=== PATIENT | male | born 1945 | race Caucasian/White ===

== ENCOUNTER → 2016-08-12 | Outpatient (REF) | payer OTHER ==
[~2016-08-12] MED LIST: ACET65TA; CODE15TA2 PO; DARV100T; DIGO0.25 PO; ECOT325T5; FLUC10TA; GERITAB9 PO; IBUP-1114 PO; IBUP200C PO; LEVA500T; METO-346 PO; METO25TAB PO; NICO14DI3; OMEP40CA2 PO; SYMB80INH INH; ZOCO20TA PO
== END ==
LOC: M LAB REF 12:11
PROVIDERS: ATTEND Physician Assistant Medical
DX: R31.9 Hematuria, unspecified (principal)

== ENCOUNTER 2016-09-07 15:26 | Emergency (ER) | payer OTHER ==
[~2016-09-07] VITALS: Ht 177.8 cm; Wt 86.6 kg
[2016-09-07] MEDS ORDERED: DOXY100T16 PO (15:48)
[2016-09-07] MEDS ORDERED: XARE20TA PO (15:48)
[2016-09-07] MEDS ORDERED: methylPREDNISolone INJ 125 MG/2 ML VIAL (J2930) IV ONE (17:15)
[2016-09-07 17:18] LABS: BASO % 0.7 % (0.0-1.0); EOS # 0.1 K/mm3 (0.0-0.50); EOS % 2.4 % (0.0-3.0); LARGE UNSTAINED CELL # 0.2 K/mm3 (0.0-0.4); LYMPH # 0.9 K/mm3 (1.5-4.5); LYMPH % 18.3 % (24.0-44.0); MEAN CORPUSCULAR HEMOGLOBIN 32.7 pg (27.0-33.0); MEAN CORPUSCULAR HGB CONC 35.3 g/dl (32.0-36.5); MEAN CORPUSCULAR VOLUME 92.4 fl (80.0-96.0); MONO # 0.4 K/mm3 (0.0-0.8); MONO % 8.8 % (0.0-5.0); NEUTROPHILS # 3.3 K/mm3 (1.8-7.7); NEUTROPHILS % 66.9 % (36.0-66.0); PLATELET COUNT, AUTOMATED 183 k/mm3 (150-450); RED CELL DISTRIBUTION WIDTH 11.6 % (11.5-14.5); WHITE BLOOD COUNT 4.9 K/mm3 (4.0-10.0)
[2016-09-07 17:20] LABS: INR 1.27
[2016-09-07 17:26] LABS: ANION GAP 10 MEQ/L (8-16); BLOOD UREA NITROGEN 17 MG/DL (7-18); CALCIUM LEVEL 8.8 MG/DL (8.8-10.2); CARBON DIOXIDE LEVEL 26 MEQ/L (21-32); CHLORIDE LEVEL 103 MEQ/L (98-107); CREATININE FOR GFR 0.95 MG/DL (0.70-1.30); GLOMERULAR FILTRATION RATE > 60.0 (>49); GLUCOSE, FASTING 113 MG/DL (80-110); POTASSIUM SERUM 4.3 MEQ/L (3.5-5.1); SODIUM LEVEL 139 MEQ/L (136-145)
[2016-09-07 17:36] LABS: DIGOXIN LEVEL 0.8 NG/ML (0.5-2.0)
[2016-09-07] MEDS: IPRATROPIUM 0.5MG/ALBUTEROL 2.5MG INH SOL UD 3ML (DUONEB)(J7620) NEB PRN ×3 (17:53→18:20)
[2016-09-07 17:58] VITALS: BP 107/58
[2016-09-07] MEDS ORDERED: ALBUTEROL SULFATE 2.5 MG/0.5 ML INH NEB SOLN NEB ONE (19:00)
--- NOTE | 2016-09-07 19:31 | REP ---
CHEST, TWO VIEWS: HISTORY: Cough. COMPARISON: 03/31/2016 A diffuse increase in interstitial markings is present in the lung consistent with chronic interstitial fibrosis. The heart is normal in size. The pulmonary vasculature is normal in appearance. The bony structure is intact. A cardiac pace maker is present. IMPRESSION: Chronic interstitial fibrosis. Signed by Obi Gaston MD 09/07/2016 07:32 P
[2016-09-07] MEDS ORDERED: AVEL1TAB PO (19:59)
[2016-09-07] MEDS ORDERED: PRED20TA PO (19:59)
[2016-09-07] MEDS ORDERED: PROA1AER INH (19:59)
[2016-09-07] MEDS ORDERED: MOXIFLOXACIN 400 MG TAB PO ONE (20:00)
--- NOTE | 2016-09-10 08:32 | ECGEPIP ---
Stationary ECG Study [facility] - ED Test Date: 2016-09-07 Pat Name: LEO COOK Department: Room: - Gender: M Design Specialist: brenton : 1945 Requested By: AARON ROMAN Order Number: [id number] Reading MD: Kylie Jean Measurements Intervals [place] Rate: 60 P: 123 GA: 249 QRS: -7 QRSD: 136 T: -24 QT: 386 QTc: 386 Interpretive Statements ELECTRONIC ATRIAL PACEMAKER INTRAVENTRICULAR CONDUCTION DELAY LEFT VENTRICULAR HYPERTROPHY AND ST-T CHANGE POSSIBLE LATERAL MYOCARDIAL INFARCTION, OF INDETERMINATE AGE Electronically Signed On 09-10-2016 8:31:54 EST by Kylie Jean
== END 2016-09-07 20:13 | disposition home or self-care (01) ==
LOC: M ED 16:53
DX: J44.0 Chronic obstructive pulmonary disease with (acute) lower respiratory infection (principal); I10 Essential (primary) hypertension; Z87.891 Personal history of nicotine dependence; Z91.041 Radiographic dye allergy status; Z79.899 Other long term (current) drug therapy; Z79.51 Long term (current) use of inhaled steroids; Z79.01 Long term (current) use of anticoagulants; E78.00 Pure hypercholesterolemia, unspecified; Z95.0 Presence of cardiac pacemaker; I48.91 Unspecified atrial fibrillation; Z85.118 Personal history of other malignant neoplasm of bronchus and lung; M19.90 Unspecified osteoarthritis, unspecified site
CPT/HCPCS: 71020; 80048; 80162; 82550; 82553; 83880; 84484; 85025; 85610; 93005; 93041; 94640; 94760; 96374; 99285; J2930

== ENCOUNTER → 2016-10-04 | Outpatient (REF) | payer OTHER ==
[~2016-10-04] MED LIST changes: +AVEL1TAB PO; +DOXY100T16 PO; +PRED20TA PO; +PROA1AER INH; +XARE20TA PO
[2016-10-04 12:56] LABS: BASO % 1.1 % (0.0-1.0); EOS # 0.2 K/mm3 (0.0-0.50); EOS % 3.8 % (0.0-3.0); LARGE UNSTAINED CELL # 0.1 K/mm3 (0.0-0.4); LARGE UNSTAINED CELL % 2.4 % (0.0-4.0); LYMPH # 1.2 K/mm3 (1.5-4.5); LYMPH % 20.7 % (24.0-44.0); MEAN CORPUSCULAR HEMOGLOBIN 32.5 pg (27.0-33.0); MEAN CORPUSCULAR HGB CONC 34.3 g/dl (32.0-36.5); MEAN CORPUSCULAR VOLUME 94.9 fl (80.0-96.0); MONO # 0.4 K/mm3 (0.0-0.8); MONO % 7.9 % (0.0-5.0); NEUTROPHILS # 3.2 K/mm3 (1.8-7.7); NEUTROPHILS % 64.1 % (36.0-66.0); PLATELET COUNT, AUTOMATED 181 k/mm3 (150-450); RED CELL DISTRIBUTION WIDTH 12.5 % (11.5-14.5)
[2016-10-04 13:14] LABS: ALBUMIN 3.3 GM/DL (3.2-5.2); ALKALINE PHOSPHATASE 86 U/L (45-117); ALT/SGPT 20 U/L (12-78); ANION GAP 9 MEQ/L (8-16); AST/SGOT 21 U/L (15-37); BLOOD UREA NITROGEN 14 MG/DL (7-18); CARBON DIOXIDE LEVEL 28 MEQ/L (21-32); CHLORIDE LEVEL 103 MEQ/L (98-107); CHOLESTEROL LEVEL 148 MG/DL (<200); CREATININE FOR GFR 1.06 MG/DL (0.70-1.30); GLOMERULAR FILTRATION RATE > 60.0 (>49); GLUCOSE, FASTING 158 MG/DL (80-110); POTASSIUM SERUM 4.4 MEQ/L (3.5-5.1); SODIUM LEVEL 140 MEQ/L (136-145); TOTAL PROTEIN 6.3 GM/DL (6.4-8.2); TRIGLYCERIDES LEVEL 72 MG/DL (<150)
== END ==
LOC: M SFHCADAM 08:29
PROVIDERS: ATTEND Physician Assistant Medical
DX: K21.9 Gastro-esophageal reflux disease without esophagitis (principal); E78.2 Mixed hyperlipidemia

== ENCOUNTER → 2016-10-11 | Outpatient (REF) | payer OTHER ==
[~2016-10-11] MED LIST changes: +CEFD1CAP8 PO; +INCR1INH INH; +PRED50TA PO; +SIMV20TA2 PO
[2016-10-11 15:14] LABS: ALBUMIN 3.2 GM/DL (3.2-5.2); ALKALINE PHOSPHATASE 99 U/L (45-117); ALT/SGPT 20 U/L (12-78); ANION GAP 9 MEQ/L (8-16); AST/SGOT 20 U/L (15-37); BILIRUBIN,TOTAL 0.8 MG/DL (0.2-1.0); BLOOD UREA NITROGEN 19 MG/DL (7-18); CALCIUM LEVEL 9.6 MG/DL (8.8-10.2); CARBON DIOXIDE LEVEL 29 MEQ/L (21-32); CHLORIDE LEVEL 101 MEQ/L (98-107); CREATININE FOR GFR 1.08 MG/DL (0.70-1.30); GLOMERULAR FILTRATION RATE > 60.0 (>49); GLUCOSE, FASTING 173 MG/DL (80-110); POTASSIUM SERUM 4.7 MEQ/L (3.5-5.1); SODIUM LEVEL 139 MEQ/L (136-145); TOTAL PROTEIN 6.4 GM/DL (6.4-8.2)
== END ==
LOC: M SFHCADAM 11:42
PROVIDERS: ATTEND Physician Assistant Medical
DX: R73.01 Impaired fasting glucose (principal)
CPT/HCPCS: 80053; 83036; 90471; 90732; G0463

== ENCOUNTER 2016-10-14 17:56 | Inpatient (IN) | payer OTHER ==
[~2016-10-14] VITALS: Ht 177.8 cm; Wt 89.2 kg
[~2016-10-14 17:56] MED LIST changes: -CEFD1CAP8 PO; -INCR1INH INH; -PRED50TA PO; -SIMV20TA2 PO
[2016-10-14] MEDS ORDERED: dexameTHASONE 20 MG/5 ML VIAL (J1100) IV ONE (19:30)
[2016-10-14] MEDS: IPRATROPIUM 0.5MG/ALBUTEROL 2.5MG INH SOL UD 3ML (DUONEB)(J7620) NEB SCH ×3 (19:41→19:43)
[2016-10-14 19:53] LABS: BASO % 0.5 % (0.0-1.0); EOS # 0.2 K/mm3 (0.0-0.50); EOS % 2.4 % (0.0-3.0); LARGE UNSTAINED CELL # 0.1 K/mm3 (0.0-0.4); LARGE UNSTAINED CELL % 1.1 % (0.0-4.0); LYMPH # 1.1 K/mm3 (1.5-4.5); LYMPH % 9.6 % (24.0-44.0); MEAN CORPUSCULAR HEMOGLOBIN 32.9 pg (27.0-33.0); MEAN CORPUSCULAR HGB CONC 35.2 g/dl (32.0-36.5); MEAN CORPUSCULAR VOLUME 93.6 fl (80.0-96.0); MONO # 0.6 K/mm3 (0.0-0.8); MONO % 5.7 % (0.0-5.0); NEUTROPHILS % 80.8 % (36.0-66.0); PLATELET COUNT, AUTOMATED 234 k/mm3 (150-450); RED CELL DISTRIBUTION WIDTH 12.9 % (11.5-14.5); WHITE BLOOD COUNT 9.9 K/mm3 (4.0-10.0)
[2016-10-14] MEDS ORDERED: AZITHROMYCIN INJ 500 MG, VIAL MATE ADAPTER 1 EACH in D5W 250 ML IV ONE (20:30)
[2016-10-14] MEDS ORDERED: CEFUROXIME SODIUM 1.5 GM in D5W MINI-BAG PLUS 50 ML IV ONE (20:30)
[2016-10-14 20:57] LABS: ANION GAP 9 MEQ/L (8-16); BLOOD UREA NITROGEN 12 MG/DL (7-18); CALCIUM LEVEL 9.1 MG/DL (8.8-10.2); CARBON DIOXIDE LEVEL 28 MEQ/L (21-32); CHLORIDE LEVEL 100 MEQ/L (98-107); CREATININE FOR GFR 1.05 MG/DL (0.70-1.30); GLOMERULAR FILTRATION RATE > 60.0 (>49); GLUCOSE, FASTING 137 MG/DL (80-110); POTASSIUM SERUM 3.9 MEQ/L (3.5-5.1); SODIUM LEVEL 137 MEQ/L (136-145)
[2016-10-14 21:34] LABS: VENOUS BASE EXCESS 0.1 (-2.0-2.0); VENOUS PARTIAL PRESSURE CO2 37.1 mmHg (38.0-50.0); VENOUS PARTIAL PRESSURE O2 65.1 mmHg (30.0-50.0); VENOUS STANDARD HCO3 24.4 MEQ/L; VENOUS TOTAL CO2 25.2 MEQ/L (24.0-28.0)
[2016-10-14] MEDS ORDERED: DEXTROSE 50% 50 ML SYRINGE IV PRN (22:15)
[2016-10-14] MEDS ORDERED: GLUCAGON FOR INJ 1 MG VIAL (J1610) SC PRN (22:15)
[2016-10-14] MEDS ORDERED: GLUCOSE 4 GM CHEW TABLET PO PRN (22:15)
[2016-10-14] MEDS ORDERED: ACETAMINOPHEN TAB 650MG DOSE (2X325MG) PO PRN (22:15)
[2016-10-14] MEDS ORDERED: IPRATROPIUM 0.5MG/ALBUTEROL 2.5MG INH SOL UD 3ML (DUONEB)(J7620) NEB PRN (22:15)
[2016-10-14] MEDS ORDERED: SIMV20TA2 PO (22:30)
[2016-10-14] MEDS ORDERED: PROA1AER INH (22:30)
[2016-10-14] MEDS ORDERED: INCR1INH INH (22:31)
[2016-10-14 23:42] VITALS: BP 124/65
[2016-10-14] MEDS: METOPROLOL TART 25 MG TABLET PO SCH (23:57)
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
[2016-10-15] MEDS: IPRATROPIUM 0.5MG/ALBUTEROL 2.5MG INH SOL UD 3ML (DUONEB)(J7620) NEB SCH ×4 (03:14→19:57)
[2016-10-15] MEDS: cefTRIAXone SOD 2 GM in D5W MINI-BAG PLUS 50 ML IV SCH (05:11)
[2016-10-15 06:00] VITALS: BP 104/50
[2016-10-15] MEDS: methylPREDNISolone INJ 125 MG/2 ML VIAL (J2930) IV SCH ×2 (06:21→17:32)
[2016-10-15 06:37] LABS: MEAN CORPUSCULAR HGB CONC 34.7 g/dl (32.0-36.5); RED CELL DISTRIBUTION WIDTH 12.8 % (11.5-14.5); WHITE BLOOD COUNT 4.2 K/mm3 (4.0-10.0)
[2016-10-15 06:48] LABS: ANION GAP 7 MEQ/L (8-16); BLOOD UREA NITROGEN 14 MG/DL (7-18); CALCIUM LEVEL 9.5 MG/DL (8.8-10.2); CARBON DIOXIDE LEVEL 26 MEQ/L (21-32); CHLORIDE LEVEL 104 MEQ/L (98-107); CREATININE FOR GFR 1.11 MG/DL (0.70-1.30); GLOMERULAR FILTRATION RATE > 60.0 (>49); GLUCOSE, FASTING 251 MG/DL (80-110); MAGNESIUM LEVEL 1.8 MG/DL (1.8-2.4); POTASSIUM SERUM 4.1 MEQ/L (3.5-5.1); SODIUM LEVEL 137 MEQ/L (136-145)
--- NOTE | 2016-10-15 08:22 | REP ---
REASON: Dyspnea COMPARISON: 09/07/2016 Cardiomediastinal silhouette is unchanged. Bipolar dual-chamber pacemaker device unchanged. Increased basilar interstitial markings left greater than right silhouetting out the left heart border. Osseous structures stable. IMPRESSION: Left lower lobe pneumonia versus asymmetric pulmonary edema, correlate clinically. Signed by Martínez Nelson DO 10/15/2016 08:49 A
[2016-10-15] MEDS: RIVAROXABAN 20 MG TAB (XARELTO) PO SCH (08:28)
[2016-10-15] MEDS: PANTOPRAZOLE 40MG TAB (PROTONIX) PO SCH (08:28)
[2016-10-15] MEDS: DOCUSATE SODIUM 100 MG CAP PO SCH ×2 (08:28→21:24)
[2016-10-15] MEDS: guaiFENesin ER 600 MG TAB PO SCH ×2 (08:28→21:25)
[2016-10-15] MEDS: DIGOXIN 0.25 MG TAB PO SCH (08:28)
[2016-10-15] MEDS: METOPROLOL TART 25 MG TABLET PO SCH ×2 (08:29→21:25)
[2016-10-15] MEDS: HumaLOG INSULIN (NovoLOG) PER UNIT SC SCH ×3 (08:31→17:49)
[2016-10-15] MEDS: SYMBICORT 80/4.5MCG INHALER 6GM INH SCH ×2 (09:08→19:58)
[2016-10-15 14:00] VITALS: BP 127/59
[2016-10-15] MEDS: MAALOX 30 ML SUSP *UDC PO PRN ×2 (17:32→21:25)
[2016-10-15] MEDS: AZITHROMYCIN INJ 500 MG, VIAL MATE ADAPTER 1 EACH in D5W 250 ML IV SCH (21:23)
[2016-10-15] MEDS: SIMVASTATIN 20 MG TAB PO SCH (21:24)
[2016-10-15 22:00] VITALS: BP 120/59
[2016-10-16] MEDS: IPRATROPIUM 0.5MG/ALBUTEROL 2.5MG INH SOL UD 3ML (DUONEB)(J7620) NEB SCH ×4 (01:09→19:44)
[2016-10-16 06:00] VITALS: BP 117/64
[2016-10-16] MEDS: methylPREDNISolone INJ 125 MG/2 ML VIAL (J2930) IV SCH ×2 (06:18→18:09)
[2016-10-16] MEDS: cefTRIAXone SOD 2 GM in D5W MINI-BAG PLUS 50 ML IV SCH (06:18)
[2016-10-16 06:37] LABS: MEAN CORPUSCULAR HEMOGLOBIN 32.5 pg (27.0-33.0); MEAN CORPUSCULAR HGB CONC 34.4 g/dl (32.0-36.5); MEAN CORPUSCULAR VOLUME 94.3 fl (80.0-96.0); RED CELL DISTRIBUTION WIDTH 13.1 % (11.5-14.5); WHITE BLOOD COUNT 15.4 K/mm3 (4.0-10.0)
[2016-10-16 06:49] LABS: ANION GAP 8 MEQ/L (8-16); BLOOD UREA NITROGEN 18 MG/DL (7-18); CARBON DIOXIDE LEVEL 25 MEQ/L (21-32); CHLORIDE LEVEL 106 MEQ/L (98-107); CREATININE FOR GFR 0.99 MG/DL (0.70-1.30); GLOMERULAR FILTRATION RATE > 60.0 (>49); GLUCOSE, FASTING 182 MG/DL (80-110); MAGNESIUM LEVEL 2.3 MG/DL (1.8-2.4); POTASSIUM SERUM 4.3 MEQ/L (3.5-5.1); SODIUM LEVEL 139 MEQ/L (136-145)
[2016-10-16] MEDS: SYMBICORT 80/4.5MCG INHALER 6GM INH SCH ×2 (08:00→19:44)
[2016-10-16] MEDS: DIGOXIN 0.25 MG TAB PO SCH (08:36)
[2016-10-16] MEDS: PANTOPRAZOLE 40MG TAB (PROTONIX) PO SCH (08:36)
[2016-10-16] MEDS: DOCUSATE SODIUM 100 MG CAP PO SCH ×2 (08:37→21:15)
[2016-10-16] MEDS: guaiFENesin ER 600 MG TAB PO SCH ×2 (08:37→21:16)
[2016-10-16] MEDS: METOPROLOL TART 25 MG TABLET PO SCH ×2 (08:37→21:15)
[2016-10-16] MEDS: RIVAROXABAN 20 MG TAB (XARELTO) PO SCH (08:37)
[2016-10-16] MEDS: HumaLOG INSULIN (NovoLOG) PER UNIT SC SCH ×3 (08:37→18:09)
--- NOTE | 2016-10-16 09:08 | ECGEPIP ---
Stationary ECG Study [facility] - ED Test Date: 2016-10-14 Pat Name: LEO COOK Department: Room: [place] [address] Gender: M Fruit Receiver: sophy : 1945 Requested By: FLORIAN SOSA Order Number: [id number] Reading MD: Kylie Jean Measurements Intervals [place] Rate: 67 P: 102 CA: 240 QRS: -5 QRSD: 138 T: -14 QT: 368 QTc: 388 Interpretive Statements ELECTRONIC ATRIAL PACEMAKER RIGHT BUNDLE BRANCH BLOCK MODERATE VOLTAGE CRITERIA FOR LVH, CONSIDER NORMAL VARIANT Electronically Signed On 10-16-2016 9:08:06 EDT by Kylie Jean
--- NOTE | 2016-10-16 15:56 | IPN ---
DATE: 10/15/2016 Mr. Alejandra is a 71-year-old male admitted last evening by the hospitalist to our service. He reports having been treated about a month ago with chronic obstructive pulmonary disease (COPD) exacerbation and seemed to be having more shortness of breath with productive cough. He only quit smoking about a month ago. He has history of lung cancer being resected 8 years ago. Left lower lobe infiltrate is noted on his current x-ray report. This is the same side that he had his pulmonary lobectomy. When we look at his old previous x-ray there seems to be more changes at the left base now than last month. He denies having any fevers, chills or sweats. He did raise up some phlegm this morning. He has shortness of breath on exertion. His current medication regimen: He is getting azithromycin, he is getting ceftriaxone, he is on simvastatin, guaifenesin, docusate, pantoprazole, Symbicort, digoxin, Xarelto, sliding-scale insulin, methylprednisolone 60 mg every 12 hours, DuoNebs, metoprolol. On examination, his temperature is 97.9, blood pressure 127/59, pulse 68 slightly irregular, respirations 16, oxygen saturation on room air is 92%. He is alert, cooperative. Voice is somewhat raspy not really in any distress. Eyes are clear. No facial weakness. Speech is clear. Mucous membranes are moist. His lungs show some scattered inspiratory and expiratory wheezes, some rhonchi at both bases. Heart is slightly irregular without any murmur, click or gallop. Abdomen soft and nontender without any masses or organomegaly. Bowel sounds are active. There is no edema. Labs this morning showed a white count of 4200, hemoglobin of 13.9, BUN is 14, creatinine 1.11, glucose was 251, it was 137 last evening. C-reactive protein is the same 4.61, troponin this morning was less than 0.02, blood sugar at noon was 292. He has sputum culture pending. Respiratory panel is negative. Blood culture is pending. ASSESSMENT: 1. Chronic obstructive pulmonary disease (COPD) exacerbation. 2. History of lung cancer resection. 3. Pneumonia left lower lobe. 4. Diabetes, sugar is higher now that he is on steroids. 5. Deep venous thrombosis (DVT) prophylaxis. 6. Atrial fibrillation with anticoagulant therapy. PLAN: The patient will be on current medications. No changes are made today. He is getting coverage for his blood sugars. Continue on current antibiotic and pulmonary regimen. It is gratifying the patient has quit smoking but discouraging that he was smoking at all after having successful lung cancer surgery. His ability to be discharged depends upon his symptomatology given that he had a visit to the emergency room (ER) and release 5 weeks ago for similar symptoms, he may need a little longer time here for them to resolve. CAMILA
[2016-10-16] MEDS ORDERED: MOM 30ML SUSPENSION UDC PO PRN (17:15)
[2016-10-16] MEDS: SIMVASTATIN 20 MG TAB PO SCH (21:15)
[2016-10-16] MEDS: AZITHROMYCIN INJ 500 MG, VIAL MATE ADAPTER 1 EACH in D5W 250 ML IV SCH (21:15)
[2016-10-16 22:00] VITALS: BP 127/75
[2016-10-17] MEDS: IPRATROPIUM 0.5MG/ALBUTEROL 2.5MG INH SOL UD 3ML (DUONEB)(J7620) NEB SCH ×4 (01:55→20:00)
[2016-10-17 06:00] VITALS: BP 109/63
[2016-10-17] MEDS: cefTRIAXone SOD 2 GM in D5W MINI-BAG PLUS 50 ML IV SCH (06:15)
[2016-10-17] MEDS: methylPREDNISolone INJ 125 MG/2 ML VIAL (J2930) IV SCH ×2 (06:16→18:18)
[2016-10-17 07:20] LABS: MEAN CORPUSCULAR HEMOGLOBIN 32.3 pg (27.0-33.0); MEAN CORPUSCULAR HGB CONC 33.5 g/dl (32.0-36.5); MEAN CORPUSCULAR VOLUME 96.5 fl (80.0-96.0); RED CELL DISTRIBUTION WIDTH 13.2 % (11.5-14.5); WHITE BLOOD COUNT 13.2 K/mm3 (4.0-10.0)
[2016-10-17 07:46] LABS: ANION GAP 6 MEQ/L (8-16); BLOOD UREA NITROGEN 23 MG/DL (7-18); CALCIUM LEVEL 8.6 MG/DL (8.8-10.2); CARBON DIOXIDE LEVEL 28 MEQ/L (21-32); CHLORIDE LEVEL 109 MEQ/L (98-107); CREATININE FOR GFR 1.21 MG/DL (0.70-1.30); GLOMERULAR FILTRATION RATE > 60.0 (>49); GLUCOSE, FASTING 208 MG/DL (80-110); MAGNESIUM LEVEL 2.7 MG/DL (1.8-2.4); POTASSIUM SERUM 4.9 MEQ/L (3.5-5.1); SODIUM LEVEL 143 MEQ/L (136-145)
[2016-10-17] MEDS: SYMBICORT 80/4.5MCG INHALER 6GM INH SCH ×2 (08:18→20:47)
--- NOTE | 2016-10-17 08:21 | IPNPDOC ---
Subjective Date Seen The patient was seen on 10/17/16. Subjective Chief Complaint/HPI The patient is a 71-year-old male admitted with a reason for visit of Pneumonia. Events since last encounter c/o dyspnea this am. + cough with expectoration of sputum. Feels need to apply oxygen this am. Saturation 89 initially, did improve to 92-94% without addition of oxygen and deep breathing. Constitutional: Denies: Chills, Fever, Night Sweats Pulmonary: Reports: Cough, Dyspnea Cardiovascular: Denies: Chest Pain, Lt Headedness, Orthopnea, Palpitations, Paroxysmal Noc. Dyspnea Gastrointestinal: Denies: Abdominal Pain, Constipation, Diarrhea, Nausea, Vomiting Genitourinary: Denies: Dysuria, Frequency, Incontinence, Retention Psych: Reports: Mood Normal, Denies: Depression, Memory Issues Objective Physical Examination General Exam: Positive: Alert, No Acute Distress ENT Exam: Positive: Atraumatic, Mucous membr. moist/pink, Pharynx Normal Neck Exam: Positive: Supple, Negative: JVD, thyromegaly Chest Exam: Positive: Rhonchi, Wheezing Heart Exam: Positive: Normal S1, Normal S2, Rate Normal, Regular Rhythm, Negative: Murmurs, Rubs Abdomen Exam: Positive: Normal bowel sounds, Soft, Negative: Hepatospenomegaly, Tenderness Extremity Exam: Positive: Normal pulses, Negative: Clubbing, Cyanosis, Edema Skin Exam: Negative: Breakdown, Lesion, Nl turgor and temperature, Other skin issue, Pruritus, Rash Neuro Exam: Positive: Cranial Nerves 3-12 NL, Normal Gait, Normal Speech, Reflexes 2+ Psych Exam: Positive: Mental status NL, Mood NL, Oriented x 3 Assessment /Plan Problems (1) Pneumonia Status: Acute Problem Text: LLL on admission. Repeat CXR today (2) COPD with exacerbation Status: Acute Problem Text: Solumedrol 60 mg IV q12 hours. remains with rhonchi, wheezing and dyspnea. Patient does not feel he is at baseline. will continue IV steroids , abx and nebs. Repeat CXR today. (3) Atrial flutter Status: Chronic Problem Text: rate controlled. sinus rhythm (4) Sick sinus syndrome Status: Chronic Response to Treatment: Stable Problem Specific Plan: Monitor Clinically (5) Diastolic CHF Status: Chronic Response to Treatment: Stable Problem Specific Plan: Monitor Clinically Problem Text: Grade 1 diastolic dysfunction. (6) Pulmonary fibrosis, unspecified Status: Chronic Plan/VTE VTE Prophylaxis Ordered?: Yes (xarelto) Plan Family Medicine Attending Note: Mr. Alejandra seen this afternoon; I d/w Elinor Long NP and I agree with her note. At present, he feels his breathing is better as compared to this morning - he has been removing his O2 throughout the day when he feels better and replacing it when he feels worse. I counseled him to only remove O2 when nurse checks his pulse ox and finds his O2 sat to be acceptable. I d/w his nurse, who will check his saturations with ambulation this evening. I anticipate discharge to home tomorrow morning off of O2. (KES) VS, I&O, 24H, Fishbone Vital Signs/I&O Vital Signs Date Time Temp Pulse Resp B/P Pulse Ox O2 Delivery O2 Flow Rate FiO2 10/17/16 06:00 97.9 110 19 109/63 96 Room Air I&O- Last 24 Hours up to 6 AM 10/17/16 06:00 Intake Total 3535 ml Balance 3535 ml Laboratory Data 24H LABS Laboratory Tests 2 10/16/16 12:08: Bedside Glucose (Misc Panel) 193H 10/16/16 16:38: Bedside Glucose (Misc Panel) 202H 10/17/16 06:56: Anion Gap 6L, Blood Urea Nitrogen 23H, Creatinine 1.21, Sodium Level 143, Potassium Level 4.9, Chloride Level 109H, Carbon Dioxide Level 28, Calcium Level 8.6L, Glomerular Filtration Rate > 60.0, Magnesium Level 2.7H CBC/BMP Laboratory Tests 10/17/16 06:56 Calcium Level 8.6 L, Red Blood Count 4.26 L, Mean Corpuscular Volume 96.5 H, Mean Corpuscular Hemoglobin 32.3, Mean Corpuscular Hemoglobin Concent 33.5, Red Cell Distribution Width 13.2 Microbiology Microbiology 10/14/16 Blood Culture - Preliminary, Resulted No Growth after 48 hours. All Specime... 10/15/16 Gram Stain - Final, Complete 10/15/16 Sputum Culture - Final, Complete 10/14/16 Respiratory Virus Panel (PCR) (AMARJIT) - Final, Complete Elinor Long [employer] C[employer] DIRECTOR Oct 17, 2016 08:21 SANDEEP RONQUILLO MD Oct 17, 2016 16:32
[2016-10-17] MEDS: PANTOPRAZOLE 40MG TAB (PROTONIX) PO SCH (09:17)
[2016-10-17] MEDS: DIGOXIN 0.25 MG TAB PO SCH (09:17)
[2016-10-17] MEDS: guaiFENesin ER 600 MG TAB PO SCH ×2 (09:17→20:32)
[2016-10-17] MEDS: RIVAROXABAN 20 MG TAB (XARELTO) PO SCH (09:17)
[2016-10-17] MEDS: DOCUSATE SODIUM 100 MG CAP PO SCH ×2 (09:17→20:32)
[2016-10-17] MEDS: METOPROLOL TART 25 MG TABLET PO SCH ×2 (09:17→20:33)
[2016-10-17] MEDS: HumaLOG INSULIN (NovoLOG) PER UNIT SC SCH ×3 (09:17→18:17)
--- NOTE | 2016-10-17 09:57 | REP ---
CHEST, TWO VIEWS: HISTORY: Pneumonia. COMPARISON: 10/14/2016. A diffuse increase in interstitial markings is present in the lungs consistent with chronic interstitial fibrosis. Patchy density is present in the left lower lobe consistent with an infiltrate unchanged compared to the previous study. The heart is normal in size. The pulmonary vasculature is normal in appearance. The bony structure is intact. A cardiac pacemaker is present. IMPRESSION: 1. Chronic interstitial fibrosis. 2. Left lower lobe infiltrate unchanged compared to the previous study. Signed by Obi Gaston MD 10/17/2016 10:16 A
--- NOTE | 2016-10-17 10:52 | IPN ---
DATE: 10/16/2016 The patient is seen today for followup on his left lower lobe infiltrate. He still has some cough which may be somewhat better today. He does raise some phlegm intermittently. He is not having any chest pains. He may have had some sweats, but does not think he has had any fevers or chills. He has been short of breath on exertion and he reports that his stamina has been down at home even before his current issues with his breathing. He continues to get azithromycin, ceftriaxone, simvastatin, guaifenesin, docusate, pantoprazole, Symbicort, digoxin, Xarelto. He is on sliding-scale insulin, methylprednisolone, DuoNebs, and metoprolol. On examination, temperature is 97.8, pulse is 60 and slightly irregular, respiratory rate is 18, oxygen saturation is 96% on room air. He is alert, pleasant, cooperative, not at all in any distress. Mouth and throat is unremarkable. There is no neck masses, tenderness or adenopathy. No carotid bruits. His lungs show some scattered rales and rhonchi in the lower lung florentino. There is no edema. Abdomen is soft, nontender without any masses or organomegaly. Bowel sounds are active. His admission sputum culture was poor quality and was said to show a few white cells, moderate gram-positive cocci in chains. Culture was not done due to oropharyngeal contamination. Respiratory virus panel was negative. Blood cultures negative. Again, the admission chest x-ray showed a left lower lobe pneumonia versus asymptomatic pulmonary edema. I would go with pneumonia. ASSESSMENT: 1. Chronic obstructive pulmonary disease (COPD) exacerbation. 2. Left lower lobe pneumonia. 3. History of lung cancer resection. 4. Sugar elevated due to steroid therapy. 5. Deep vein thrombosis (DVT) prophylaxis. 6. Atrial fibrillation with anticoagulation therapy. PLAN: The patient will continue on his current medications. I have not made any changes today. Need to continue on his antibiotic, steroids, nebulizer treatment, and covering his blood sugars. When we feel comfortable that he will not bounce back if he was discharged, then we can plan his discharge home with followup. CAMILA
[2016-10-17 14:00] VITALS: BP 109/57
[2016-10-17] MEDS: AZITHROMYCIN INJ 500 MG, VIAL MATE ADAPTER 1 EACH in D5W 250 ML IV SCH (20:10)
[2016-10-17] MEDS: SIMVASTATIN 20 MG TAB PO SCH (20:32)
[2016-10-17 22:00] VITALS: BP 111/61
[2016-10-18] MEDS: IPRATROPIUM 0.5MG/ALBUTEROL 2.5MG INH SOL UD 3ML (DUONEB)(J7620) NEB SCH ×2 (01:58→08:00)
[2016-10-18] MEDS: cefTRIAXone SOD 2 GM in D5W MINI-BAG PLUS 50 ML IV SCH (05:45)
[2016-10-18 06:00] VITALS: BP 138/66
[2016-10-18] MEDS: methylPREDNISolone INJ 125 MG/2 ML VIAL (J2930) IV SCH (06:22)
[2016-10-18 06:42] LABS: MEAN CORPUSCULAR HEMOGLOBIN 32.3 pg (27.0-33.0); MEAN CORPUSCULAR HGB CONC 33.5 g/dl (32.0-36.5); MEAN CORPUSCULAR VOLUME 96.5 fl (80.0-96.0); RED CELL DISTRIBUTION WIDTH 13.1 % (11.5-14.5); WHITE BLOOD COUNT 9.9 K/mm3 (4.0-10.0)
[2016-10-18 07:00] LABS: ANION GAP 3 MEQ/L (8-16); BLOOD UREA NITROGEN 27 MG/DL (7-18); CALCIUM LEVEL 8.7 MG/DL (8.8-10.2); CARBON DIOXIDE LEVEL 32 MEQ/L (21-32); CHLORIDE LEVEL 105 MEQ/L (98-107); CREATININE FOR GFR 1.06 MG/DL (0.70-1.30); GLOMERULAR FILTRATION RATE > 60.0 (>49); GLUCOSE, FASTING 169 MG/DL (80-110); MAGNESIUM LEVEL 2.4 MG/DL (1.8-2.4); SODIUM LEVEL 140 MEQ/L (136-145)
[2016-10-18 07:04] LABS: POTASSIUM SERUM 5.3 MEQ/L (3.5-5.1)
[2016-10-18] MEDS: DOCUSATE SODIUM 100 MG CAP PO SCH (08:15)
[2016-10-18] MEDS: guaiFENesin ER 600 MG TAB PO SCH (08:15)
[2016-10-18] MEDS: RIVAROXABAN 20 MG TAB (XARELTO) PO SCH (08:15)
[2016-10-18] MEDS: DIGOXIN 0.25 MG TAB PO SCH (08:15)
[2016-10-18] MEDS: HumaLOG INSULIN (NovoLOG) PER UNIT SC SCH (08:15)
[2016-10-18 08:16] VITALS: BP 118/67
[2016-10-18] MEDS: METOPROLOL TART 25 MG TABLET PO SCH (08:16)
[2016-10-18] MEDS: PANTOPRAZOLE 40MG TAB (PROTONIX) PO SCH (08:16)
[2016-10-18] MEDS ORDERED: PRED50TA PO (08:17)
[2016-10-18] MEDS ORDERED: CEFD1CAP8 PO (08:17)
[2016-10-18] MEDS: SYMBICORT 80/4.5MCG INHALER 6GM INH SCH (09:08)
--- NOTE | 2016-10-18 10:51 | DSES ---
DATE OF ADMISSION: 10/17/2016 DATE OF DISCHARGE: 10/18/2016 ATTENDING PHYSICIAN: Dr. Eliot Gordon PRIMARY CARE PROVIDER: DENIS Viramontes HISTORY OF PRESENT ILLNESS: 71-year-old male with underlying history of chronic obstructive pulmonary disease (COPD) with emphysema and a multitude of other chronic medical conditions, presented with 1-1/2 week history of intermittent progressive coughing and shortness of breath with significant sputum production and generalized weakness. On presentation to the hospital, the patient was noted to have left lower lobe community-acquired bacterial pneumonia, along with COPD exacerbation. The patient was noted to have some hypoxia on presentation to the emergency department. He was subsequently admitted to family medicine service. HOSPITAL COURSE: The patient was placed on azithromycin and ceftriaxone IV. He did receive a full three days of azithromycin and ceftriaxone. He was placed on high dose steroid, Solu-Medrol 60 mg IV twice a day and tolerated that very well. Today, he was able to ambulate in the hallway approximately 500 feet, however, did desaturate into the 86 and 87% range on room air. I attempted to oxygenate with 1 liter and he improved to 87%. With 2 liters, the patient improved above 90% with exertion. Resting saturations are in the mid 90 to 95% on room air. The patient's vital signs have remained stable throughout hospitalization. LABORATORY DATA: Show trending white count to baseline. IMAGING: The patient had a chest x-ray on presentation to the emergency department, as well as a repeat on 10/17/2016, which showed unchanged left lower lobe infiltrate. PHYSICAL EXAMINATION: Today, vital signs are stable. He is afebrile. HEENT: Neck is supple without lymphadenopathy or jugular venous distention (JVD). CARDIOVASCULAR: Heart rate and rhythm are regular with a grade 2/6 systolic ejection murmur. PULMONARY: The patient has fine bibasilar rales. Otherwise, lungs are clear to auscultation. ABDOMEN: Soft and nontender with positive bowel sounds times all four quadrants. EXTREMITIES: Bilateral lower extremities are without edema. NEUROLOGIC: He is alert and oriented times three. No visible tremors appreciated. PSYCHIATRIC: Affect is appropriate. Conversation is congruent. The patient maintains eye contact. ASSESSMENT: 1. Left lower lobe pneumonia. 2. Chronic obstructive pulmonary disease (COPD) exacerbation. 3. History of atrial flutter. 4. History of sick sinus syndrome. 5. History of dyslipidemia. 6. History of lung cancer. 7. History of gastroesophageal reflux disease (GERD). 8. History of grade 1 diastolic dysfunction. PLAN: The patient will be discharged home. Diet is 2 gram sodium. Activity is as tolerated. He will use oxygen 2 liters nasal cannula with exertion. This was ordered and will be supplied for him prior to discharge home. The patient will followup with primary care provider in 5 to 7 days. MEDICATIONS: - cefdinir 300 mg by mouth twice a day for 7 days - prednisone 50 mg by mouth daily - albuterol sulfate two puffs every 4 hours as needed for shortness of breath - Symbicort one puff twice a day - digoxin 0.25 mg by mouth daily - Incruse Ellipta 62.5 mcg daily - metoprolol 25 mg by mouth twice a day - omeprazole 20 mg by mouth daily - Xarelto 20 mg by mouth daily - simvastatin 20 mg by mouth at night The patient will have a BMP completed tomorrow, as he does have a slightly elevated potassium of 5.3 today. The results will be sent to his primary care provider. The patient is discharged in stable and satisfactory condition with no further questions at the time of discharge. Attending note: I saw and evaluated the patient, and agree with the plan of care discussed and documented above by Camille Long. Patient required high-dose methylprednisolone while inpatient, and should be tapered at follow-up. He was discharged on prednisone 30 mg tablets daily for 7 days. However, patient should be on high- dose steroids for the shortest duration possible. If patient continues to do well at follow-up, I would recommend tapering therapy rather than leaving him at a fixed dose. Eliot Gordon MD [facility]
== END 2016-10-18 11:56 | disposition home health service (06) | DRG 190 ==
LOC: EDBD 17:56 → M ED 19:00 → M ED INP 22:01 → M MSPAV 23:40 → OBSVTOIN 10-17 08:21
PROVIDERS: ADMIT Hospitalist; ATTEND Family Medicine
DX: J44.1 Chronic obstructive pulmonary disease with (acute) exacerbation (principal); J15.9 Unspecified bacterial pneumonia; I50.32 Chronic diastolic (congestive) heart failure; I48.92 Unspecified atrial flutter; K21.9 Gastro-esophageal reflux disease without esophagitis; E78.5 Hyperlipidemia, unspecified; Z85.118 Personal history of other malignant neoplasm of bronchus and lung; Z79.899 Other long term (current) drug therapy; Z91.041 Radiographic dye allergy status; E11.9 Type 2 diabetes mellitus without complications; Z79.52 Long term (current) use of systemic steroids

== ENCOUNTER → 2016-10-19 | Outpatient (REF) | payer OTHER ==
[~2016-10-19] MED LIST changes: +CEFD1CAP8 PO; +INCR1INH INH; +PRED50TA PO; +SIMV20TA2 PO
[2016-10-19 11:43] LABS: ANION GAP 10 MEQ/L (8-16); BLOOD UREA NITROGEN 24 MG/DL (7-18); CALCIUM LEVEL 8.2 MG/DL (8.8-10.2); CARBON DIOXIDE LEVEL 24 MEQ/L (21-32); CHLORIDE LEVEL 105 MEQ/L (98-107); CREATININE FOR GFR 1.09 MG/DL (0.70-1.30); GLOMERULAR FILTRATION RATE > 60.0 (>49); GLUCOSE, FASTING 286 MG/DL (80-110); POTASSIUM SERUM 4.5 MEQ/L (3.5-5.1); SODIUM LEVEL 139 MEQ/L (136-145)
== END ==
LOC: M SFHCADAM 08:54
PROVIDERS: ATTEND Physician Assistant Medical
DX: E87.5 Hyperkalemia (principal)

== ENCOUNTER 2016-11-03 09:39 | Inpatient (IN) | payer OTHER ==
[~2016-11-03] VITALS: Ht 177.8 cm; Wt 90.5 kg
[2016-11-03] MEDS ORDERED: OMEP40CA2 PO (10:06)
[2016-11-03 11:05] LABS: BASO % 0.3 % (0.0-1.0); EOS # 0.2 K/mm3 (0.0-0.50); EOS % 3.3 % (0.0-3.0); LARGE UNSTAINED CELL # 0.2 K/mm3 (0.0-0.4); LARGE UNSTAINED CELL % 2.6 % (0.0-4.0); LYMPH % 13.7 % (24.0-44.0); MEAN CORPUSCULAR HEMOGLOBIN 34.2 pg (27.0-33.0); MEAN CORPUSCULAR HGB CONC 34.9 g/dl (32.0-36.5); MEAN CORPUSCULAR VOLUME 98.1 fl (80.0-96.0); MONO # 0.4 K/mm3 (0.0-0.8); MONO % 6.1 % (0.0-5.0); NEUTROPHILS # 5.4 K/mm3 (1.8-7.7); PLATELET COUNT, AUTOMATED 185 k/mm3 (150-450); RED CELL DISTRIBUTION WIDTH 12.8 % (11.5-14.5); WHITE BLOOD COUNT 7.3 K/mm3 (4.0-10.0)
[2016-11-03 11:23] LABS: ANION GAP 8 MEQ/L (8-16); BLOOD UREA NITROGEN 11 MG/DL (7-18); CALCIUM LEVEL 9.2 MG/DL (8.8-10.2); CARBON DIOXIDE LEVEL 27 MEQ/L (21-32); CHLORIDE LEVEL 102 MEQ/L (98-107); CREATININE FOR GFR 0.93 MG/DL (0.70-1.30); GLOMERULAR FILTRATION RATE > 60.0 (>49); GLUCOSE, FASTING 170 MG/DL (80-110); POTASSIUM SERUM 4.1 MEQ/L (3.5-5.1); SODIUM LEVEL 137 MEQ/L (136-145)
[2016-11-03] MEDS: IPRATROPIUM 0.5MG/ALBUTEROL 2.5MG INH SOL UD 3ML (DUONEB)(J7620) NEB SCH ×4 (12:00→23:23)
--- NOTE | 2016-11-03 12:02 | REP ---
CHEST, TWO VIEWS: HISTORY: Cough. COMPARISON: 10/17/2016 A diffuse increase in interstitial markings is present in the lungs consistent with chronic interstitial fibrosis. Increased density is present in the left lower lobe consistent with infiltrate that is slightly increased compared to the previous study. The heart is normal in size. The pulmonary vasculature is normal in appearance. The bony structure is intact. A cardiac pacemaker is present. IMPRESSION: 1. Chronic interstitial fibrosis. 2. Left lower lobe infiltrate increased compared to the previous study. Signed by Obi Gaston MD 11/03/2016 12:03 P
[2016-11-03] MEDS ORDERED: PIPERACILLIN/TAZOBACTAM SOD 4.5 GM in D5W MINI-BAG PLUS 50 ML IV ONE (12:45)
[2016-11-03] MEDS ORDERED: VANCOMYCIN HCL 2,020 MG in IV FLUID PLACE HOLDER 1 EA IV ONE (12:45)
[2016-11-03] MEDS: VANCOMYCIN HCL 1,000 MG, VIAL MATE ADAPTER 1 EACH in D5W 250 ML IV SCH ×2 (13:00→14:00)
[2016-11-03] MEDS ORDERED: OMEP20CA3 PO (13:02)
[2016-11-03] MEDS ORDERED: ACET50TAOT PO (13:04)
--- NOTE | 2016-11-03 13:04 | HPEPDOC ---
Medical History and Physical Date of Admission 11/03/16 History and Physical PRIMARY CARE PROVIDER: Emili Fernandez ATTENDING: Dr. Munoz CHIEF COMPLAINT: SOB HISTORY OF PRESENT ILLNESS: This is a 71-year-old male past history of COPD, history of lung cancer status post left upper lobe resection, SSS status post PPM, atrial flutter on Xarelto who presents complaining of worsening shortness of breath and cough. Patient was recently admitted on October 17 for pneumonia and discharged with by mouth antibiotics which patient has completed. Patient states her the past 2-3 days she's developed increasing shortness of breath, cough of white sputum production that is thicker than usual. Patient denies chest pain/palpitations. Patient denies nausea/vomiting/ abdominal pain. He is not sure whether these had recent weight loss. PAST MEDICAL HISTORY: As per HPI PAST SURGICAL HISTORY: left lung upper lobe resection, PPM, lumbar disc surgery , shock lithotripsy, left rotator cuff surgery SOCIAL HISTORY:H/o tobacco abuse x 55 years, quit 3 months ago. Occasional alcohol. No illicit drugs. Works as a [employer]. FAMILY HISTORY:F- DM, lung dz ALLERGIES: Please see below. REVIEW OF SYSTEMS: HEENT: Denies sore throat/headache CARDIOVASCULAR: Denies chest pain/palpitations RESPIRATORY: + shortness of breath/cough GASTROINTESTINAL: denies nausea/vomiting GENITOURINARY: Denies dysuria/urinary urgency. MUSCULOSKELETAL: Denies myalgias/arthralgias NEUROLOGICAL: Denies any focal weakness Rest of ROS negative. HOME MEDICATIONS: Please see below. PHYSICAL EXAMINATION: Vitals: (see below) General: No acute distress, laying comfortably in bed. HEENT: Moist mucous membranes. Neck: No JVD or lymphadenopathy Cardiac: RRR, No murmurs Pulm: Diminished breath sounds and coarse/fine crackles at the bases b/l L>R. Minimal exp wheezing. No rhonchi or stridor Abd: NT/ND + BS Ext: No edema or cyanosis LABORATORY DATA: See below. IMAGING: CT chest on 11/03/16 with bilateral pulmonary fibrosis, left lower lobe infiltrate as well as alveolar infiltrate. MICROBIOLOGY: Please see below. ASSESSMENT/PLAN: 1. Acute COPD exacerbation likely secondary to worsening pneumonia. Baseline pulmonary fibrosis. We'll start patient on vancomycin and Zosyn for healthcare acquired pneumonia. Sputum/blood cultures pending. Legionella/strep urine antigen. CT of the chest (see above). Given the patient's history of lung cancer and persistence infiltrates, consider CT of the chest with contrast tomorrow. In the meantime we'll have the patient's on Solu-Medrol and nebulizers. 2. Atrial flutter on Xarelto 3. SSS status post PPM 4. History of grade 1 diastolic dysfunction- compensated DVT prophylaxis- on Xarelto Patient followed by Dr. Munoz starting 11/04/16 7 AM. Vital Signs Vital Signs Date Time Temp Pulse Resp B/P (MAP) Pulse Ox O2 Delivery O2 Flow Rate FiO2 11/03/16 10:24 58 99 11/03/16 10:14 22 108/57 Nasal Cannula 2.0 11/03/16 09:40 98.0 Laboratory Data Labs 24H Laboratory Tests 2 11/03/16 10:08: White Blood Count 7.3, Red Blood Count 4.69, Hemoglobin 16.1, Hematocrit 46.0, Mean Corpuscular Volume 98.1H, Mean Corpuscular Hemoglobin 34.2H, Mean Corpuscular Hemoglobin Concent 34.9, Red Cell Distribution Width 12.8, Platelet Count 185, Neutrophils (%) (Auto) 74.0H, Lymphocytes (%) (Auto) 13.7L, Monocytes (%) (Auto) 6.1H, Eosinophils (%) (Auto) 3.3H, Basophils (%) (Auto) 0.3 , Neutrophils # (Auto) 5.4, Lymphocytes # (Auto) 1.0L, Monocytes # (Auto) 0.4, Eosinophils # (Auto) 0.2, Basophils # (Auto) 0.0, Large Unclassified Cells % 2.6 , Large Unclassified Cells # 0.2, Anion Gap 8, Glomerular Filtration Rate > 60.0 , Blood Urea Nitrogen 11, Creatinine 0.93, Sodium Level 137, Potassium Level 4.1 , Chloride Level 102, Carbon Dioxide Level 27, Calcium Level 9.2, Total Creatine Kinase 62, Creatine Kinase MB 2.6, Creatine Kinase MB Relative Index 4.19H, Troponin I < 0.02 CBC/BMP Laboratory Tests 11/03/16 10:08 Red Blood Count 4.69, Mean Corpuscular Volume 98.1 H, Mean Corpuscular Hemoglobin 34.2 H, Mean Corpuscular Hemoglobin Concent 34.9, Red Cell Distribution Width 12.8, Neutrophils (%) (Auto) 74.0 H, Lymphocytes (%) (Auto) 13.7 L, Monocytes (%) (Auto) 6.1 H, Eosinophils (%) (Auto) 3.3 H, Basophils (%) (Auto) 0.3, Neutrophils # (Auto) 5.4, Lymphocytes # (Auto) 1.0 L, Monocytes # ( Auto) 0.4, Eosinophils # (Auto) 0.2, Basophils # (Auto) 0.0, Calcium Level 9.2, Total Creatine Kinase 62 Microbiology Microbiology 11/03/16 Blood Culture, Received Pending 11/03/16 Blood Culture, Received Pending Home Medications Scheduled (Incruse Ellipta) 62.5 Mcg/Inh Inh, 62.5 MCG INH DAILY Budesonide/Formoterol (Symbicort 80-4.5 Mcg/Act) Unknown Strength Aers, Unknown Dose INH BID unknown strength, [facility] does not have on file. last clinic visit it was listed as 160/4.5 Digoxin (Digoxin) 0.25 Mg Tab, 0.25 MG PO DAILY Metoprolol Tartrate (Metoprolol Tartrate) 25 Mg Tab, 25 MG PO BID Omeprazole (Omeprazole) 20 Mg Cap, 20 MG PO BID Rivaroxaban (Xarelto) 20 Mg Tab, 20 MG PO DAILY Simvastatin (Simvastatin) 20 Mg Tab, 20 MG PO QHS Scheduled PRN Acetaminophen (Acetaminophen) 500 Mg Tab, 500 MG PO for PAIN OR FEVER Albuterol Sulfate (Proair Hfa) 108 Mcg/Act Aer, 2 PUFF INH Q4H PRN for SHORTNESS OF BREATH Allergies Coded Allergies: Contrast Media (Unverified Allergy, Unknown, 11/26/15) PERFUMES (Unverified Allergy, Unknown, 11/03/16) ALEXEY VALIENTE MD November 03, 2016 13:04
[2016-11-03] MEDS ORDERED: ALBUTEROL SULFATE 2.5 MG/0.5 ML INH NEB SOLN INH PRN (13:15)
--- NOTE | 2016-11-03 13:37 | REP ---
CT CHEST WITHOUT IV CONTRAST: CT chest is performed without IV contrast. Sagittal and coronal reconstruction images are performed. Comparison made with prior CT 08/27/2015 as well as multiple prior chest radiographs. There is bilateral bronchiectasis as well as diffuse interstitial fibrosis. There appears to be mildly progressive lower lobe fibrosis since prior CT exam. However, there does appear to be superimposed interstitial infiltrate and hazy alveolar infiltrate in the left lower lobe which is more acute. There is no pleural or pericardial effusion. Small mediastinal lymph nodes are stable. Left pacemaker is noted. There is no aneurysm of the thoracic aorta. In the visualized portions of the upper abdomen gallstones are seen in the gallbladder and there are a few tiny calcified granulomas in the spleen. There are degenerative changes of the spine. IMPRESSION: Interstitial fibrosis and bronchiectasis. There appears to be superimposed acute interstitial and hazy alveolar infiltrate in the left lower lobe. No pleural effusion. Signed by Franck Norton MD 11/04/2016 05:13 P
[2016-11-03] MEDS: methylPREDNISolone INJ 125 MG/2 ML VIAL (J2930) IV SCH ×2 (13:39→21:07)
[2016-11-03] MEDS ORDERED: ACETAMINOPHEN 500 MG TAB PO PRN (15:45)
[2016-11-03 16:53] VITALS: BP 126/58
[2016-11-03] MEDS: PIPERACILLIN/TAZOBACTAM SOD 3.375 GM in D5W MINI-BAG PLUS 50 ML IV SCH (18:18)
[2016-11-03] MEDS: METOPROLOL TART 25 MG TABLET PO SCH (21:00)
[2016-11-03] MEDS: SIMVASTATIN 20 MG TAB PO SCH (21:08)
[2016-11-03] MEDS: OMEPRAZOLE 20 MG CAP PO SCH (21:08)
[2016-11-03 22:00] VITALS: BP 112/59
[2016-11-04] MEDS: PIPERACILLIN/TAZOBACTAM SOD 3.375 GM in D5W MINI-BAG PLUS 50 ML IV SCH ×4 (00:34→18:06)
[2016-11-04] MEDS: methylPREDNISolone INJ 125 MG/2 ML VIAL (J2930) IV SCH ×3 (01:37→20:45)
[2016-11-04] MEDS: IPRATROPIUM 0.5MG/ALBUTEROL 2.5MG INH SOL UD 3ML (DUONEB)(J7620) NEB SCH ×6 (03:27→23:43)
[2016-11-04 05:30] LABS: MEAN CORPUSCULAR HEMOGLOBIN 33.3 pg (27.0-33.0); MEAN CORPUSCULAR VOLUME 97.9 fl (80.0-96.0); RED CELL DISTRIBUTION WIDTH 12.8 % (11.5-14.5); WHITE BLOOD COUNT 5.5 K/mm3 (4.0-10.0)
[2016-11-04 05:48] LABS: CALCIUM LEVEL 8.7 MG/DL (8.8-10.2); CREATININE FOR GFR 1.5 MG/DL (0.70-1.30); GLOMERULAR FILTRATION RATE 49.4 (>49); POTASSIUM SERUM 4.6 MEQ/L (3.5-5.1)
[2016-11-04 06:00] VITALS: BP 116/55
[2016-11-04] MEDS ORDERED: GLUCAGON FOR INJ 1 MG VIAL (J1610) SC PRN (06:15)
[2016-11-04] MEDS ORDERED: DEXTROSE 50% 50 ML SYRINGE IV PRN (06:15)
[2016-11-04] MEDS ORDERED: GLUCOSE 4 GM CHEW TABLET PO PRN (06:15)
[2016-11-04] MEDS: METOPROLOL TART 25 MG TABLET PO SCH ×2 (08:22→20:46)
[2016-11-04] MEDS: OMEPRAZOLE 20 MG CAP PO SCH ×2 (08:22→20:45)
[2016-11-04] MEDS: DIGOXIN 0.25 MG TAB PO SCH (08:22)
[2016-11-04] MEDS: RIVAROXABAN 20 MG TAB (XARELTO) PO SCH (08:22)
[2016-11-04] MEDS: HumaLOG INSULIN (NovoLOG) PER UNIT SC SCH ×4 (08:23→20:46)
--- NOTE | 2016-11-04 09:14 | IPNPDOC ---
Subjective Date Seen The patient was seen on 11/04/16. Subjective Chief Complaint/HPI The patient is a 71-year-old male admitted with a reason for visit of Hcap Pulmonary Fibrosis Unspecified. Events since last encounter Pt reports feeling much better this morning. His breathing is better, he is coughing less. He has been weaned from his O2 and is tolerating this. He is looking forward to going for a walk soon. General: Denies: Fatigue Constitutional: Denies: Chills, Fever ENT: Denies: Head Aches Pulmonary: Reports: Dyspnea, Cough Cardiovascular: Denies: Chest Pain, Palpitations Gastrointestinal: Denies: Nausea, Vomiting, Diarrhea Neurological: Denies: Weakness Psych: Reports: Mood Normal Objective Physical Examination General Exam: Positive: Alert, No Acute Distress ENT Exam: Positive: Mucous membr. moist/pink Chest Exam: Positive: Rales (coarse rales L>R base), Diminished Heart Exam: Positive: Rate Normal, Normal S1, Normal S2 Abdomen Exam: Positive: Normal bowel sounds, Soft, Negative: Tenderness Extremity Exam: Negative: Edema Assessment /Plan Problems (1) HCAP (healthcare-associated pneumonia) Status: Acute Response to Treatment: Stable, Improving Discussed With: Patient Problem Specific Plan: Monitor Clinically, Repeat Labs Problem Text: D1 vanco/Zosyn. (no h/o Pseudomonas/MRSA) 11/04 Clinically much better today than on admission. 11/03 Sputum cx, legionella/strep urine antigen pending 11/03 BCX x 2- 11/03 - inf A/B Will reduce dose of solumedrol today. Pt with bump in Scr from 0.93 to 1.50 therefore will hold off on further imaging with contrast at this time 11/03 CT chest acute LLL infiltrate c chronic bronchiectasis (2) Acute kidney injury Status: Acute Response to Treatment: Worse Problem Specific Plan: Monitor Clinically, Repeat Labs Problem Text: 11/04 19/1.5 baseline cr 1.0-1.1 h/o nephrolithiasis-asx now he is on Vanco which is nephrotoxic, is dosing is adjusted by Pharm, will monitor, may need to be changed. Enc hydration. Will obtain UA/UCX/renal US (3) Pulmonary fibrosis, unspecified Status: Chronic Response to Treatment: Stable Problem Specific Plan: Monitor Clinically Problem Text: Will reduce solumedrom from 60 IV q6 to BID, will likely require steroid taper. Resp improved significantly from admission. (4) Atrial flutter Status: Chronic Response to Treatment: Stable Problem Specific Plan: Monitor Clinically Problem Text: Rate control with Dig and Lopressor, Anticoag with Xarelto caution DOAC c decreased GFR (check dig level) (5) Diastolic CHF Status: Chronic Response to Treatment: Stable Problem Specific Plan: Monitor Clinically Problem Text: Euvolemic-not on any chronic meds for CHF (6) Hyperglycemia Status: Acute Response to Treatment: Stable Problem Text: [id number] dose 10/2016 A1C 6.8 Plan/VTE VTE Prophylaxis Ordered?: Yes VS, I&O, 24H, Fishbone Vital Signs/I&O Vital Signs Date Time Temp Pulse Resp B/P (MAP) Pulse Ox O2 Delivery O2 Flow Rate FiO2 11/04/16 08:22 62 124/58 11/04/16 06:00 97.5 15 95 Nasal Cannula 2.0 I&O- Last 24 Hours up to 6 AM 11/04/16 06:00 Intake Total 2190 ml Output Total 1175 ml Balance 1015 ml Laboratory Data 24H LABS Laboratory Tests 2 11/03/16 10:08: White Blood Count 7.3, Red Blood Count 4.69, Hemoglobin 16.1, Hematocrit 46.0, Mean Corpuscular Volume 98.1H, Mean Corpuscular Hemoglobin 34.2H, Mean Corpuscular Hemoglobin Concent 34.9, Red Cell Distribution Width 12.8, Platelet Count 185, Neutrophils (%) (Auto) 74.0H, Lymphocytes (%) (Auto) 13.7L, Monocytes (%) (Auto) 6.1H, Eosinophils (%) (Auto) 3.3H, Basophils (%) (Auto) 0.3 , Neutrophils # (Auto) 5.4, Lymphocytes # (Auto) 1.0L, Monocytes # (Auto) 0.4, Eosinophils # (Auto) 0.2, Basophils # (Auto) 0.0, Large Unclassified Cells % 2.6 , Large Unclassified Cells # 0.2, Anion Gap 8, Glomerular Filtration Rate > 60.0 , Blood Urea Nitrogen 11, Creatinine 0.93, Sodium Level 137, Potassium Level 4.1 , Chloride Level 102, Carbon Dioxide Level 27, Calcium Level 9.2, Total Creatine Kinase 62, Creatine Kinase MB 2.6, Creatine Kinase MB Relative Index 4.19H, Troponin I < 0.02 11/03/16 17:48: Total Creatine Kinase 47, Creatine Kinase MB 2.0, Creatine Kinase MB Relative Index 4.25H, Troponin I < 0.02 11/04/16 02:01: 11/04/16 05:18: Anion Gap 10, Glomerular Filtration Rate 49.4, Blood Urea Nitrogen 19#H, Creatinine 1.50#H, Sodium Level 137, Potassium Level 4.6, Chloride Level 102, Carbon Dioxide Level 25, Calcium Level 8.7L, Magnesium Level 2.0 11/04/16 06:07: Bedside Glucose (Misc Panel) 459H CBC/BMP Laboratory Tests 11/03/16 10:08 Red Blood Count 4.69, Mean Corpuscular Volume 98.1 H, Mean Corpuscular Hemoglobin 34.2 H, Mean Corpuscular Hemoglobin Concent 34.9, Red Cell Distribution Width 12.8, Neutrophils (%) (Auto) 74.0 H, Lymphocytes (%) (Auto) 13.7 L, Monocytes (%) (Auto) 6.1 H, Eosinophils (%) (Auto) 3.3 H, Basophils (%) (Auto) 0.3, Neutrophils # (Auto) 5.4, Lymphocytes # (Auto) 1.0 L, Monocytes # ( Auto) 0.4, Eosinophils # (Auto) 0.2, Basophils # (Auto) 0.0, Calcium Level 9.2, Total Creatine Kinase 62 11/04/16 05:18 Red Blood Count 4.14 L, Mean Corpuscular Volume 97.9 H, Mean Corpuscular Hemoglobin 33.3 H, Mean Corpuscular Hemoglobin Concent 34.0, Red Cell Distribution Width 12.8, Calcium Level 8.7 L Microbiology Microbiology 11/03/16 Blood Culture, Received Pending 11/03/16 Blood Culture, Received Pending 11/03/16 Influenza Virus Type A Antigen - Final, Complete 11/03/16 Influenza Virus Type B Antigen - Final, Complete 11/03/16 Gram Stain, Received Pending 11/03/16 Sputum Culture, Received Pending JOE HASSAN PA-C November 04, 2016 09:14 David Munoz M.D. November 04, 2016 15:41
--- NOTE | 2016-11-04 11:00 | ECGEPIP ---
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
[2016-11-04 14:00] VITALS: BP 112/56
[2016-11-04] MEDS: SIMVASTATIN 20 MG TAB PO SCH (20:45)
[2016-11-04 22:00] VITALS: BP 119/58
[2016-11-05] MEDS: PIPERACILLIN/TAZOBACTAM SOD 3.375 GM in D5W MINI-BAG PLUS 50 ML IV SCH ×4 (00:54→18:31)
[2016-11-05] MEDS: IPRATROPIUM 0.5MG/ALBUTEROL 2.5MG INH SOL UD 3ML (DUONEB)(J7620) NEB SCH ×6 (03:13→23:39)
[2016-11-05 06:00] VITALS: BP 118/66
[2016-11-05 06:11] LABS: MEAN CORPUSCULAR HEMOGLOBIN 33.7 pg (27.0-33.0); MEAN CORPUSCULAR HGB CONC 33.8 g/dl (32.0-36.5); MEAN CORPUSCULAR VOLUME 99.7 fl (80.0-96.0); RED CELL DISTRIBUTION WIDTH 12.9 % (11.5-14.5); WHITE BLOOD COUNT 11.8 K/mm3 (4.0-10.0)
[2016-11-05 06:28] LABS: ANION GAP 11 MEQ/L (8-16); BLOOD UREA NITROGEN 24 MG/DL (7-18); CALCIUM LEVEL 8.7 MG/DL (8.8-10.2); CARBON DIOXIDE LEVEL 22 MEQ/L (21-32); CHLORIDE LEVEL 104 MEQ/L (98-107); CREATININE FOR GFR 1.22 MG/DL (0.70-1.30); GLOMERULAR FILTRATION RATE > 60.0 (>49); GLUCOSE, FASTING 296 MG/DL (80-110); POTASSIUM SERUM 4.2 MEQ/L (3.5-5.1); SODIUM LEVEL 137 MEQ/L (136-145)
[2016-11-05] MEDS: OMEPRAZOLE 20 MG CAP PO SCH ×2 (08:17→21:43)
[2016-11-05] MEDS: RIVAROXABAN 20 MG TAB (XARELTO) PO SCH (08:17)
[2016-11-05] MEDS: METOPROLOL TART 25 MG TABLET PO SCH ×2 (08:17→21:43)
[2016-11-05] MEDS: methylPREDNISolone INJ 125 MG/2 ML VIAL (J2930) IV SCH (08:18)
[2016-11-05] MEDS: DIGOXIN 0.25 MG TAB PO SCH (08:18)
[2016-11-05] MEDS: HumaLOG INSULIN (NovoLOG) PER UNIT SC SCH ×4 (08:18→21:00)
[2016-11-05 10:00] VITALS: BP 136/64
--- NOTE | 2016-11-05 10:37 | IPNPDOC ---
Subjective Date Seen The patient was seen on 11/05/16. Subjective Chief Complaint/HPI The patient is a 71-year-old male admitted with a reason for visit of Hcap Pulmonary Fibrosis Unspecified. General: Reports: Normal Appetite, Denies: Chills, Night Sweats ENT: Denies: Head Aches, Dysphagia Skin: Denies: Rash, Bruising Gastrointestinal: Denies: Vomiting, Abdominal Pain, Constipation Genitourinary: Denies: Dysuria, Frequency Hematologic: Denies: Bruising, Petecchia Endocrine: Denies: Polydipsia, Polyuria Objective Physical Examination General Exam: Positive: Alert, No Acute Distress Eye Exam: Positive: PERRLA, EOMI ENT Exam: Positive: Mucous membr. moist/pink Chest Exam: Positive: Rales (coarse rales L>R base), Rhonchi (left lower lung field, brief, minimal rhonchi noted.), Diminished Heart Exam: Positive: Rate Normal, Normal S1, Normal S2 Abdomen Exam: Positive: Normal bowel sounds, Soft, Negative: Tenderness Extremity Exam: Negative: Edema Assessment /Plan Problems (1) HCAP (healthcare-associated pneumonia) Status: Acute Response to Treatment: Stable, Improving Discussed With: Patient Problem Specific Plan: Monitor Clinically, Repeat Labs Problem Text: D1 vanco/Zosyn. (no h/o Pseudomonas/MRSA) 11/04 Clinically much better today than on admission. 11/03 Sputum cx, legionella/strep urine antigen pending 11/03 BCX x 2- 11/03 - inf A/B Will reduce dose of solumedrol today. Pt with bump in Scr from 0.93 to 1.50 therefore will hold off on further imaging with contrast at this time 11/03 CT chest acute LLL infiltrate c chronic bronchiectasis 11/05: D/C solumedrol 60 bid, change to prednisone 20 tid (2) Acute kidney injury Status: Acute Response to Treatment: Worse Problem Specific Plan: Monitor Clinically, Repeat Labs Problem Text: 11/04 19/1.5 baseline cr 1.0-1.1 h/o nephrolithiasis-asx now he is on Vanco which is nephrotoxic, is dosing is adjusted by Pharm, will monitor, may need to be changed. Enc hydration. Will obtain UA/UCX/renal US 11/05: no hydro, left renal cyst on "jiffy slip", full report pending. Creat improved (3) Pulmonary fibrosis, unspecified Status: Chronic Response to Treatment: Stable Problem Specific Plan: Monitor Clinically Problem Text: Will reduce solumedrom from 60 IV q6 to BID, will likely require steroid taper. Resp improved significantly from admission. 11/05: not dyspneic, ambulating on unit w/o distress (4) Atrial flutter Status: Chronic Response to Treatment: Stable Problem Specific Plan: Monitor Clinically Problem Text: Rate control with Dig and Lopressor, Anticoag with Xarelto caution DOAC c decreased GFR (check dig level) (5) Diastolic CHF Status: Chronic Response to Treatment: Stable Problem Specific Plan: Monitor Clinically Problem Text: Euvolemic-not on any chronic meds for CHF (6) Hyperglycemia Status: Acute Response to Treatment: Stable Problem Text: [id number] dose 10/2016 A1C 6.8 change diet to NCS/controlled carb Plan/VTE VTE Prophylaxis Ordered?: Yes VS, I&O, 24H, Fishbone Vital Signs/I&O Vital Signs Date Time Temp Pulse Resp B/P (MAP) Pulse Ox O2 Delivery O2 Flow Rate FiO2 11/05/16 10:00 98.4 66 20 136/64 (88) 96 Room Air 11/04/16 19:30 2.0 I&O- Last 24 Hours up to 6 AM 11/05/16 05:59 Intake Total 2180 ml Output Total 700 ml Balance 1480 ml Laboratory Data 24H LABS Laboratory Tests 2 11/04/16 12:08: Bedside Glucose (Misc Panel) 396H 11/04/16 15:51: Urine Appearance CLEAR, Urine Color YELLOW, Urine pH 5.0, Urine Specific [place] 1.035, Urine Protein NEGATIVE, Urine Glucose (UA) 3+H, Urine Ketones NEGATIVE, Urine Urobilinogen 0.2, Urine Bilirubin NEGATIVE, Urine Leukocyte Esterase NEGATIVE, Urine Blood NEGATIVE, Urine Nitrite NEGATIVE, Urine WBC (Auto ) 1, Urine RBC (Auto) 1, Urine Hyaline Casts (Auto) 0, Urine Bacteria (Auto) NEGATIVE, Urine Squamous Epithelial Cells 0, Urine Sperm (Auto) 11/04/16 16:47: Bedside Glucose (Misc Panel) 306H 11/04/16 17:27: Digoxin Level 0.8 11/04/16 20:34: Bedside Glucose (Misc Panel) 353H 11/05/16 05:54: Anion Gap 11, Glomerular Filtration Rate > 60.0, Blood Urea Nitrogen 24H, Creatinine 1.22, Sodium Level 137, Potassium Level 4.2, Chloride Level 104, Carbon Dioxide Level 22, Calcium Level 8.7L, Magnesium Level 2.0 CBC/BMP Laboratory Tests 11/05/16 05:54 Red Blood Count 4.10 L, Mean Corpuscular Volume 99.7 H, Mean Corpuscular Hemoglobin 33.7 H, Mean Corpuscular Hemoglobin Concent 33.8, Red Cell Distribution Width 12.9, Calcium Level 8.7 L Microbiology Microbiology 11/03/16 Blood Culture - Preliminary, Resulted No growth after 24 hours . All specim... 11/03/16 Blood Culture - Preliminary, Resulted No growth after 24 hours . All specim... 11/04/16 MRSA Screen, Received Pending 11/03/16 Influenza Virus Type A Antigen - Final, Complete 11/03/16 Influenza Virus Type B Antigen - Final, Complete 11/03/16 Gram Stain - Final, Resulted 11/03/16 Sputum Culture, Resulted Pending Feliberto Marrero MD November 05, 2016 10:36
--- NOTE | 2016-11-05 11:01 | REP ---
RENAL ULTRASOUND: Real-time sonographic evaluation of the kidneys is performed. The kidneys are normal in size and echotexture, the right kidney measuring 12.0 x 4.3 x 6.0 cm and the left kidney 12.0 x 3.5 x 5.1 cm. There is no hydronephrosis bilaterally. Parapelvic cysts in the upper pole of the left kidney measures 1 cm in diameter. No definite stones are seen in either kidney. Urinary bladder is not distended and not evaluated. IMPRESSION: No hydronephrosis. Left renal cyst. Signed by Franck Norton MD 11/08/2016 04:00 P
[2016-11-05 14:00] VITALS: BP 115/58
[2016-11-05] MEDS: predniSONE 20 MG TAB PO SCH ×2 (14:21→21:43)
[2016-11-05] MEDS: SIMVASTATIN 20 MG TAB PO SCH (21:43)
[2016-11-05 22:00] VITALS: BP 120/58
[2016-11-06] MEDS: PIPERACILLIN/TAZOBACTAM SOD 3.375 GM in D5W MINI-BAG PLUS 50 ML IV SCH ×2 (01:28→06:24)
[2016-11-06] MEDS: IPRATROPIUM 0.5MG/ALBUTEROL 2.5MG INH SOL UD 3ML (DUONEB)(J7620) NEB SCH ×6 (03:35→23:41)
[2016-11-06 05:45] LABS: MEAN CORPUSCULAR HEMOGLOBIN 33.5 pg (27.0-33.0); MEAN CORPUSCULAR HGB CONC 33.9 g/dl (32.0-36.5); MEAN CORPUSCULAR VOLUME 98.7 fl (80.0-96.0); RED CELL DISTRIBUTION WIDTH 13.2 % (11.5-14.5); WHITE BLOOD COUNT 8.6 K/mm3 (4.0-10.0)
[2016-11-06 06:00] VITALS: BP 115/58
[2016-11-06 06:01] LABS: ANION GAP 9 MEQ/L (8-16); BLOOD UREA NITROGEN 30 MG/DL (7-18); CARBON DIOXIDE LEVEL 25 MEQ/L (21-32); CHLORIDE LEVEL 106 MEQ/L (98-107); CREATININE FOR GFR 1.15 MG/DL (0.70-1.30); GLOMERULAR FILTRATION RATE > 60.0 (>49); GLUCOSE, FASTING 300 MG/DL (80-110); MAGNESIUM LEVEL 2.1 MG/DL (1.8-2.4); POTASSIUM SERUM 4.5 MEQ/L (3.5-5.1); SODIUM LEVEL 140 MEQ/L (136-145)
[2016-11-06] MEDS: predniSONE 20 MG TAB PO SCH ×3 (06:24→20:56)
[2016-11-06] MEDS: RIVAROXABAN 20 MG TAB (XARELTO) PO SCH (08:40)
[2016-11-06] MEDS: OMEPRAZOLE 20 MG CAP PO SCH ×2 (08:41→20:56)
[2016-11-06] MEDS: HumaLOG INSULIN (NovoLOG) PER UNIT SC SCH ×4 (08:41→20:56)
[2016-11-06] MEDS: DIGOXIN 0.25 MG TAB PO SCH (08:42)
[2016-11-06] MEDS: METOPROLOL TART 25 MG TABLET PO SCH ×2 (08:43→20:57)
[2016-11-06] MEDS: AUGMENTIN 875 MG TAB PO SCH ×2 (10:23→20:56)
[2016-11-06] MEDS: GLIMEPIRIDE 1 MG TABLET PO SCH (10:23)
--- NOTE | 2016-11-06 11:02 | IPNPDOC ---
Subjective Date Seen The patient was seen on 11/06/16. Subjective Chief Complaint/HPI The patient is a 71-year-old male admitted with a reason for visit of Hcap Pulmonary Fibrosis Unspecified. Constitutional: Denies: Chills, Night Sweats Eyes: Denies: Vision change ENT: Denies: Dysphagia Skin: Denies: Rash Pulmonary: Reports: Cough, Denies: Dyspnea, Pleuritic Chest Pain Cardiovascular: Denies: Chest Pain, Palpitations Gastrointestinal: Denies: Nausea, Abdominal Pain, Constipation Genitourinary: Denies: Dysuria, Frequency Hematologic: Denies: Bruising Objective Physical Examination General Exam: Positive: Alert, No Acute Distress Eye Exam: Positive: PERRLA, EOMI ENT Exam: Positive: Mucous membr. moist/pink Chest Exam: Positive: Rales, Rhonchi, Diminished Heart Exam: Positive: Rate Normal, Normal S1, Normal S2 Abdomen Exam: Positive: Normal bowel sounds, Soft Extremity Exam: Negative: Edema Assessment /Plan Problems (1) HCAP (healthcare-associated pneumonia) Status: Acute Response to Treatment: Stable, Improving Discussed With: Patient Problem Specific Plan: Monitor Clinically, Repeat Labs Problem Text: D1 vanco/Zosyn. (no h/o Pseudomonas/MRSA) 11/04 Clinically much better today than on admission. 11/03 Sputum cx, legionella/strep urine antigen pending 11/03 BCX x 2- 11/03 - inf A/B Will reduce dose of solumedrol today. Pt with bump in Scr from 0.93 to 1.50 therefore will hold off on further imaging with contrast at this time 11/03 CT chest acute LLL infiltrate c chronic bronchiectasis 11/05: D/C solumedrol 60 bid, change to prednisone 20 tid 06 November: sputum H parainfluenza, will change to po antibiotic, reduce prednisone to bid (2) Acute kidney injury Status: Acute Response to Treatment: Worse Problem Specific Plan: Monitor Clinically, Repeat Labs Problem Text: 11/04 19/1.5 baseline cr 1.0-1.1 h/o nephrolithiasis-asx now he is on Vanco which is nephrotoxic, is dosing is adjusted by Pharm, will monitor, may need to be changed. Enc hydration. Will obtain UA/UCX/renal US 11/05: no hydro, left renal cyst on "jiffy slip", full report pending. Creat improved 06 November: improving Creatinine (3) Pulmonary fibrosis, unspecified Status: Chronic Response to Treatment: Stable Problem Specific Plan: Monitor Clinically Problem Text: Will reduce solumedrom from 60 IV q6 to BID, will likely require steroid taper. Resp improved significantly from admission. 11/05: not dyspneic, ambulating on unit w/o distress 11/06: reduce prednisone to 20 bid (4) Atrial flutter Status: Chronic Response to Treatment: Stable Problem Specific Plan: Monitor Clinically Problem Text: Rate control with Dig and Lopressor, Anticoag with Xarelto caution DOAC c decreased GFR (check dig level) (5) Diastolic CHF Status: Chronic Response to Treatment: Stable Problem Specific Plan: Monitor Clinically Problem Text: Euvolemic-not on any chronic meds for CHF (6) Hyperglycemia Status: Acute Response to Treatment: Stable Problem Text: [id number] dose 10/2016 A1C 6.8 change diet to NCS/controlled carb 7May: add glimepiride, reduce prednisone. dietary instruction needed Plan/VTE VTE Prophylaxis Ordered?: Yes Plan Anticipated Discharge: [facility] VS, I&O, 24H, Fishbone Vital Signs/I&O Vital Signs Date Time Temp Pulse Resp B/P (MAP) Pulse Ox O2 Delivery O2 Flow Rate FiO2 11/06/16 08:43 66 148/74 11/06/16 06:00 98.6 18 93 Room Air 11/05/16 08:15 2.0 I&O- Last 24 Hours up to 6 AM 11/06/16 06:00 Intake Total 2230 ml Output Total 2125 ml Balance 105 ml Laboratory Data 24H LABS Laboratory Tests 2 11/05/16 12:04: Bedside Glucose (Misc Panel) 350H 11/05/16 16:17: Bedside Glucose (Misc Panel) 235H 11/05/16 21:03: Bedside Glucose (Misc Panel) 244H 11/06/16 05:25: Anion Gap 9, Glomerular Filtration Rate > 60.0, Blood Urea Nitrogen 30H, Creatinine 1.15, Sodium Level 140, Potassium Level 4.5, Chloride Level 106, Carbon Dioxide Level 25, Calcium Level 8.0L, Magnesium Level 2.1 CBC/BMP Laboratory Tests 11/06/16 05:25 Red Blood Count 3.84 L, Mean Corpuscular Volume 98.7 H, Mean Corpuscular Hemoglobin 33.5 H, Mean Corpuscular Hemoglobin Concent 33.9, Red Cell Distribution Width 13.2, Calcium Level 8.0 L Microbiology Microbiology 11/03/16 Blood Culture - Preliminary, Resulted No Growth after 48 hours. All Specime... 11/03/16 Blood Culture - Preliminary, Resulted No Growth after 48 hours. All Specime... 11/04/16 MRSA Screen - Final, Complete 11/03/16 Influenza Virus Type A Antigen - Final, Complete 11/03/16 Influenza Virus Type B Antigen - Final, Complete 11/03/16 Gram Stain - Final, Complete 11/03/16 Sputum Culture - Final, Complete Haemophilus Parainfluenzae 11/04/16 Urine Culture - Final, Complete Feliberto Marrero MD November 06, 2016 11:02
[2016-11-06 14:00] VITALS: BP 126/59
[2016-11-06] MEDS: SIMVASTATIN 20 MG TAB PO SCH (20:55)
[2016-11-06 20:57] VITALS: BP 146/64
[2016-11-06 22:00] VITALS: BP 146/64
[2016-11-07] MEDS: IPRATROPIUM 0.5MG/ALBUTEROL 2.5MG INH SOL UD 3ML (DUONEB)(J7620) NEB SCH ×3 (01:53→11:14)
[2016-11-07] MEDS: predniSONE 20 MG TAB PO SCH (05:25)
[2016-11-07 06:00] VITALS: BP 144/68
[2016-11-07 06:40] LABS: MEAN CORPUSCULAR HEMOGLOBIN 33.2 pg (27.0-33.0); MEAN CORPUSCULAR HGB CONC 33.3 g/dl (32.0-36.5); MEAN CORPUSCULAR VOLUME 99.8 fl (80.0-96.0); RED CELL DISTRIBUTION WIDTH 13.1 % (11.5-14.5); WHITE BLOOD COUNT 7.6 K/mm3 (4.0-10.0)
[2016-11-07 06:58] LABS: ANION GAP 9 MEQ/L (8-16); BLOOD UREA NITROGEN 26 MG/DL (7-18); CALCIUM LEVEL 8.6 MG/DL (8.8-10.2); CARBON DIOXIDE LEVEL 27 MEQ/L (21-32); CHLORIDE LEVEL 104 MEQ/L (98-107); CREATININE FOR GFR 1.09 MG/DL (0.70-1.30); GLOMERULAR FILTRATION RATE > 60.0 (>49); GLUCOSE, FASTING 220 MG/DL (80-110); MAGNESIUM LEVEL 2.3 MG/DL (1.8-2.4); POTASSIUM SERUM 4.6 MEQ/L (3.5-5.1); SODIUM LEVEL 140 MEQ/L (136-145)
[2016-11-07] MEDS: AUGMENTIN 875 MG TAB PO SCH (09:05)
[2016-11-07] MEDS: GLIMEPIRIDE 1 MG TABLET PO SCH (09:05)
[2016-11-07] MEDS: RIVAROXABAN 20 MG TAB (XARELTO) PO SCH (09:05)
[2016-11-07] MEDS: OMEPRAZOLE 20 MG CAP PO SCH (09:05)
[2016-11-07] MEDS: DIGOXIN 0.25 MG TAB PO SCH (09:05)
[2016-11-07] MEDS: METOPROLOL TART 25 MG TABLET PO SCH (09:06)
[2016-11-07] MEDS: HumaLOG INSULIN (NovoLOG) PER UNIT SC SCH (09:06)
[2016-11-07] MEDS ORDERED: AMAR1TAB PO (10:01)
[2016-11-07] MEDS ORDERED: ALB2.5NEB INH (10:01)
[2016-11-07] MEDS ORDERED: AMOX875T2 PO (10:01)
[2016-11-07] MEDS ORDERED: PRED20TA PO (10:01)
[2016-11-07] MEDS ORDERED: IPRASOL4 NEB (10:01)
[2016-11-07 10:47] LABS: VITAMIN B12 LEVEL 552 PG/ML (247-911)
--- NOTE | 2016-11-07 11:49 | DSES ---
DATE OF ADMISSION: 11/03/2016 DATE OF DISCHARGE: 11/07/2016 PCP: DENIS Viramontes ATTENDING PHYSICIAN: Dr. David Munoz HISTORY OF PRESENT ILLNESS: Rashad Alejandra is 71-year-old male patient of DENIS Viramontes with a history of chronic obstructive pulmonary artery disease (COPD), history of lung cancer and is status post left upper lobe resection. The patient had been hospitalized in October for pneumonia and was discharged however prior to this admission he had been complaining of shortness of breath and cough for a couple of days. He was admitted for acute COPD exacerbation likely secondary to pneumonia. The patient with history of pulmonary fibrosis. He was initially started on vancomycin and Zosyn. Sputum culture grew out Haemophilus parainfluenzae. He was placed on Solu-Medrol. He was eventually changed to oral prednisone and when his sputum did grow Haemophilus parainfluenzae he was changed to Augmentin. Creatinine did bump, however did start to trend downward and by day of discharge was back within normal limits. A chest CT at admission did show interstitial fibrosis and bronchiectasis and what appears to be a superimposed acute interstitial and hazy alveolar infiltrate in the left lower lobe. With the patient's increase in serum creatinine pharmacology helped to adjust the vancomycin which eventually was discontinued when the patient was switched to oral Augmentin. Renal ultrasound was obtained and showed no hydronephrosis and a left renal cyst. As noted above serum creatinine did return to normal. The patient had a history of atrial flutter and was continued on digoxin and Lopressor. He was continued on Xarelto. The patient with hyperglycemia and was started on glimepiride which he will be discharged home on. Hopefully with continued steroid tapering his blood sugars will improve. I will defer to his PCP on further monitoring of the patient's blood sugars. He will be discharged home on a controlled carbohydrate diet. PHYSICAL EXAMINATION: Vitals: Temperature 97.3, pulse 68, respiratory rate 20, blood pressure is 144/68, pulse ox 95%. General: The patient is alert, in no acute distress, no respiratory distress. Head is normocephalic, atraumatic. Chest: Diminished breath sounds, some scattered wheezes and rhonchi. Heart: Regular rate and rhythm. Abdomen: Positive bowel sounds, soft, nontender. Extremities: No edema. LABORATORY DATA: WBC 7.6, hemoglobin 14.5, hematocrit 43.5, platelets 228. Sodium 140, potassium 4.6, chloride 104, carbon dioxide 27, BUN 26, creatinine 1.09, glucose 220, calcium 8.6, magnesium 2.3. MEDICATIONS: - Albuterol nebs every 2 hours as needed shortness of breathing - ipratropium nebs every 4 hours - Augmentin 875 mg by mouth twice a day times 14 days - glimepiride 1 mg daily - prednisone 20 mg 1 tablet twice a day times three days then 1 tablet daily times three days then half tablet daily times four days then stop - acetaminophen 5 mg by mouth pain as needed fever or fever - albuterol puffer 2 puffs every 4 hours as needed shortness of breath - Symbicort 80 - 4.5 twice a day - digoxin 0.25 mg by mouth daily - Incruse Ellipta 11-62.5 mcg inhaled daily - metoprolol tartrate 25 mg o twice a day - omeprazole 20 mg by mouth twice a day - Xarelto 20 mg by mouth daily - simvastatin 20 mg by mouth at bedtime DISCHARGE INSTRUCTIONS: Consistent carbohydrate diet. Activity as tolerated. Followup with Emili Paulino in [address] Amin in a week. DISCHARGE DIAGNOSES: Healthcare associated pneumonia. Pulmonary fibrosis. Acute kidney injury. Atrial flutter. Diastolic congestive heart failure.
[2016-11-08 00:30] LABS: ORGANISM ID Not indicated. (.); SPECIMEN SOURCE Urine (.)
== END 2016-11-07 11:42 | disposition home or self-care (01) | DRG 190 ==
LOC: M ED 11:16 → M ED INP 13:21 → M MSPAV 16:43
PROVIDERS: ADMIT Internal Medicine; ATTEND Family Medicine
DX: J44.1 Chronic obstructive pulmonary disease with (acute) exacerbation (principal); J18.9 Pneumonia, unspecified organism; I50.32 Chronic diastolic (congestive) heart failure; N17.9 Acute kidney failure, unspecified; I48.3 Typical atrial flutter; J44.0 Chronic obstructive pulmonary disease with (acute) lower respiratory infection; Z85.118 Personal history of other malignant neoplasm of bronchus and lung; J84.10 Pulmonary fibrosis, unspecified; B96.3 Hemophilus influenzae [H. influenzae] as the cause of diseases classified elsewhere; Z79.899 Other long term (current) drug therapy; Z87.891 Personal history of nicotine dependence; Z91.040 Latex allergy status; E16.2 Hypoglycemia, unspecified

== ENCOUNTER → 2016-11-24 | Outpatient (CLI) | payer OTHER ==
[~2016-11-24] MED LIST changes: +ACET50TAOT PO; +ALB2.5NEB INH; +AMAR1TAB PO; +AMOX875T2 PO; +IPRASOL4 NEB; +OMEP20CA3 PO
--- NOTE | 2016-11-24 09:42 | REP ---
Clinical: Emphysema. Technique: PA and lateral. Comparison: 11/03/2016. Findings: Mediastinum and cardiac silhouette are stable. The lung florentino demonstrate diffuse chronic interstitial changes and fibrosis (left greater than right). Subtle superimposed left lower lobe infiltrate cannot be excluded and requires clinical correlation and auscultation. No effusion. No pneumothorax. Skeletal structures stable. Impression: Diffuse chronic interstitial disease and fibrosis. Cannot exclude subtle superimposed left lower lobe infiltrate and correlation is recommended. Signed by Shayne Correia MD 11/24/2016 09:33 A
== END ==
LOC: M ADAMS 09:14
PROVIDERS: ATTEND Physician Assistant Medical
DX: J43.1 Panlobular emphysema (principal)
CPT/HCPCS: 71020; G0463

== ENCOUNTER → 2017-04-18 | Outpatient (REF) | payer OTHER ==
[~2017-04-18] MED LIST changes: -AVEL1TAB PO; +AVEL1TAB3 PO; -IBUP200C PO; +IBUP200C10 PO; +METO25TA4 PO; -METO25TAB PO; -PROA1AER INH; +PROAAER10 INH
[2017-04-18 20:14] LABS: BASO # 0.1 10^3/uL (0.0-0.2); BASO % 1.4 % (0.0-1.0); EOS # 0.3 10^3/uL (0.0-0.50); EOS % 4.6 % (0.0-3.0); IMMATURE GRANULOCYTE % 0.2 % (0-0); LYMPH # 1.3 10^3/uL (1.5-4.5); LYMPH % 19.7 % (24.0-44.0); MEAN CORPUSCULAR HEMOGLOBIN 30.8 pg (27.0-33.0); MEAN CORPUSCULAR HGB CONC 34.3 g/dl (32.0-36.5); MEAN CORPUSCULAR VOLUME 89.8 fl (80.0-96.0); MONO # 0.6 10^3/uL (0.0-0.8); MONO % 9.8 % (0.0-5.0); NEUTROPHILS # 4.2 10^3/uL (1.8-7.7); NEUTROPHILS % 64.3 % (36.0-66.0); PLATELET COUNT, AUTOMATED 230 10^3/uL (150-450); RED CELL DISTRIBUTION WIDTH 11.9 % (11.5-14.5); WHITE BLOOD COUNT 6.5 10^3/uL (4.0-10.0)
[2017-04-18 20:30] LABS: ALBUMIN 3.7 GM/DL (3.2-5.2); ALBUMIN/GLOBULIN RATIO 1.06 (1.00-1.93); ALKALINE PHOSPHATASE 95 U/L (45-117); ALT/SGPT 18 U/L (12-78); ANION GAP 8 MEQ/L (8-16); AST/SGOT 17 U/L (15-37); BILIRUBIN,TOTAL 0.9 MG/DL (0.2-1.0); BLOOD UREA NITROGEN 15 MG/DL (7-18); CALCIUM LEVEL 9.3 MG/DL (8.8-10.2); CARBON DIOXIDE LEVEL 25 MEQ/L (21-32); CHLORIDE LEVEL 104 MEQ/L (98-107); CHOLESTEROL LEVEL 139 MG/DL (<200); CREATININE FOR GFR 1.02 MG/DL (0.70-1.30); GLOMERULAR FILTRATION RATE > 60.0 (>49); GLUCOSE, FASTING 112 MG/DL (80-110); POTASSIUM SERUM 4.8 MEQ/L (3.5-5.1); SODIUM LEVEL 137 MEQ/L (136-145); TOTAL PROTEIN 7.2 GM/DL (6.4-8.2); TRIGLYCERIDES LEVEL 133 MG/DL (<150)
== END ==
LOC: M SFHCADAM 14:59
PROVIDERS: ATTEND Physician Assistant Medical
DX: E78.2 Mixed hyperlipidemia (principal); R73.01 Impaired fasting glucose

== ENCOUNTER → 2017-09-14 | Outpatient (CLI) | payer OTHER | LOC: M SMT 09:32 | DX: J44.9 Chronic obstructive pulmonary disease, unspecified (principal) | CPT/HCPCS: 71046 ==

== ENCOUNTER 2017-10-13 08:10 | Outpatient (REF) | payer OTHER ==
[2017-10-16 13:46] LABS: BASO # 0.1 10^3/uL (0.0-0.2); BASO % 0.6 % (0.0-1.0); EOS # 0.2 10^3/uL (0.0-0.50); EOS % 1.9 % (0.0-3.0); HEMOGLOBIN 16.2 g/dl (13.5-17.5); IMMATURE GRANULOCYTE % 0.3 % (0-3.0); LYMPH # 2.3 10^3/uL (1.5-4.5); LYMPH % 29.8 % (24.0-44.0); MEAN CORPUSCULAR HEMOGLOBIN 31.4 pg (27.0-33.0); MEAN CORPUSCULAR HGB CONC 34.5 g/dl (32.0-36.5); MEAN CORPUSCULAR VOLUME 91.1 fl (80.0-96.0); MONO # 0.7 10^3/uL (0.0-0.8); MONO % 9.4 % (0.0-5.0); NEUTROPHILS # 4.6 10^3/uL (1.8-7.7); PLATELET COUNT, AUTOMATED 221 10^3/uL (150-450); RED BLOOD COUNT 5.16 10^6/uL (4.30-6.10); RED CELL DISTRIBUTION WIDTH 12.5 % (11.5-14.5); WHITE BLOOD COUNT 7.9 10^3/uL (4.0-10.0)
[2017-10-16 14:27] LABS: TOTAL 25(OH) VITAMIN D 39.6 NG/ML (30.0-100.0)
[2017-10-16 14:38] LABS: ALBUMIN 3.5 GM/DL (3.2-5.2); ALBUMIN/GLOBULIN RATIO 1.17 (1.00-1.93); ALKALINE PHOSPHATASE 90 U/L (45-117); ALT/SGPT 24 U/L (12-78); ANION GAP 7 MEQ/L (8-16); AST/SGOT 13 U/L (7-37); BLOOD UREA NITROGEN 18 MG/DL (7-18); CALCIUM LEVEL 8.9 MG/DL (8.8-10.2); CARBON DIOXIDE LEVEL 28 MEQ/L (21-32); CHLORIDE LEVEL 107 MEQ/L (98-107); CHOLESTEROL LEVEL 122 MG/DL (<200); CHOLESTEROL RISK RATIO 2.178 (<5); CREATININE FOR GFR 1.03 MG/DL (0.70-1.30); FREE T4 1.07 NG/DL (0.76-1.46); GLOMERULAR FILTRATION RATE > 60.0 (>42); GLUCOSE, FASTING 130 MG/DL (70-100); HDL CHOLESTEROL 56 MG/DL (>40); LDL CHOLESTEROL 46.2 MG/DL (<100); NON-HDL-C 66 MG/DL; POTASSIUM SERUM 4.4 MEQ/L (3.5-5.1); SODIUM LEVEL 142 MEQ/L (136-145); TOTAL PROTEIN 6.5 GM/DL (6.4-8.2); TRIGLYCERIDES LEVEL 99 MG/DL (<150)
[2017-10-16 14:45] LABS: ESTIMATED AVERAGE GLUCOSE 157 MG/DL (60-110); HEMOGLOBIN A1c 7.1 %
== END 2017-10-16 ==
LOC: M SFHCADAM 08:10
DX: E78.2 Mixed hyperlipidemia (principal); K21.9 Gastro-esophageal reflux disease without esophagitis; R73.01 Impaired fasting glucose
CPT/HCPCS: 84443

== ENCOUNTER 2018-02-07 11:28 | Day surgery (SDC) | payer OTHER ==
[2018-02-07] MEDS: LR 1,000 ML IV (13:00)
[2018-02-07] MEDS ORDERED: LIDOCAINE 2% INJ 100 MG/5 ML SDV (FOR ANES.) As Ordered (13:21)
[2018-02-07] MEDS ORDERED: PROPOFOL 500 MG/50 ML VIAL As Ordered (13:21)
[2018-02-07] MEDS ORDERED: MIDAZOLAM INJ 2 MG/2 ML VIAL (J2250) As Ordered (13:21)
[2018-02-07] MEDS ORDERED: fentaNYL 100 MCG/2 ML INJECTION (J3010) As Ordered (13:21)
[2018-02-07] MEDS ORDERED: ALBUTEROL SULFATE 2.5 MG/0.5 ML INH NEB SOLN As Ordered (13:23)
[2018-02-07] MEDS: ALBUTEROL SULFATE 2.5 MG/0.5 ML INH NEB SOLN INH (13:30)
[2018-02-07] MEDS ORDERED: VANCOMYCIN 1000 MG/20 ML VIAL (J3370) As Ordered (14:10)
[2018-02-07] MEDS: LIDOCAINE 1% SDV INJ 30 ML VIAL As Ordered (15:40)
[2018-02-07] MEDS ORDERED: CORTISPORIN OPHTH OINT 3.5 GM As Ordered (15:53)
[2018-02-07] MEDS ORDERED: NEOSPORIN TOP OINT 15GM As Ordered (15:53)
[2018-02-07] MEDS ORDERED: PERCOCET 5MG/325MG TAB PO (16:30)
[2018-02-07] MEDS ORDERED: ACETAMINOPHEN TAB 650MG DOSE (2X325MG) PO (16:30)
[2018-02-07] MEDS ORDERED: fentaNYL 100 MCG/2 ML INJECTION (J3010) IV (16:30)
[2018-02-07] MEDS ORDERED: ONDANSETRON 4MG/2ML VIAL (J2405) IV (16:30)
[2018-02-07] MEDS ORDERED: HYDROMORPHONE HCL 0.5 MG/ 0.5 ML SYRINGE (J1170 PER 1) IV (16:30)
[2018-02-07] MEDS ORDERED: ASCORBIC ACID 250 MG TAB PO (21:00)
== END 2018-02-07 17:03 | disposition home or self-care (01) ==
LOC: M SDC 11:28
DX: Z45.010 Encounter for checking and testing of cardiac pacemaker pulse generator [battery] (principal); I48.91 Unspecified atrial fibrillation; K44.9 Diaphragmatic hernia without obstruction or gangrene; K21.9 Gastro-esophageal reflux disease without esophagitis; Z91.041 Radiographic dye allergy status; F17.210 Nicotine dependence, cigarettes, uncomplicated; F41.9 Anxiety disorder, unspecified; F32.9 Major depressive disorder, single episode, unspecified; J44.9 Chronic obstructive pulmonary disease, unspecified; Z79.01 Long term (current) use of anticoagulants; Z79.899 Other long term (current) drug therapy; J84.10 Pulmonary fibrosis, unspecified; Z85.118 Personal history of other malignant neoplasm of bronchus and lung
CPT/HCPCS: 33228

== ENCOUNTER → 2018-04-20 | Outpatient (CLI) | payer MEDICARE, OTHER | LOC: M RAD 07:53 | DX: R91.8 Other nonspecific abnormal finding of lung field (principal) | CPT/HCPCS: 71250 ==

== ENCOUNTER → 2018-06-04 | Outpatient (REF) | payer OTHER ==
[2018-06-04 14:09] LABS: BASO # 0.1 10^3/uL (0.0-0.2); BASO % 0.9 % (0.0-1.0); EOS # 0.2 10^3/uL (0.0-0.50); EOS % 3.5 % (0.0-3.0); HEMATOCRIT 47.7 % (42.0-52.0); HEMOGLOBIN 16.7 g/dl (13.5-17.5); IMMATURE GRANULOCYTE % 0.2 % (0-3.0); LYMPH # 1.1 10^3/uL (1.5-4.5); LYMPH % 16.6 % (24.0-44.0); MEAN CORPUSCULAR HEMOGLOBIN 32.5 pg (27.0-33.0); MEAN CORPUSCULAR VOLUME 92.8 fl (80.0-96.0); MONO # 0.6 10^3/uL (0.0-0.8); MONO % 9.7 % (0.0-5.0); NEUTROPHILS # 4.4 10^3/uL (1.8-7.7); NEUTROPHILS % 69.1 % (36.0-66.0); PLATELET COUNT, AUTOMATED 237 10^3/uL (150-450); RED BLOOD COUNT 5.14 10^6/uL (4.30-6.10); RED CELL DISTRIBUTION WIDTH 11.9 % (11.5-14.5); WHITE BLOOD COUNT 6.4 10^3/uL (4.0-10.0)
[2018-06-04 14:27] LABS: ALBUMIN 3.6 GM/DL (3.2-5.2); ALKALINE PHOSPHATASE 83 U/L (45-117); ALT/SGPT 19 U/L (12-78); ANION GAP 9 MEQ/L (8-16); AST/SGOT 13 U/L (7-37); BLOOD UREA NITROGEN 13 MG/DL (7-18); CALCIUM LEVEL 8.7 MG/DL (8.8-10.2); CARBON DIOXIDE LEVEL 27 MEQ/L (21-32); CHLORIDE LEVEL 105 MEQ/L (98-107); CHOLESTEROL LEVEL 131 MG/DL (<200); CHOLESTEROL RISK RATIO 2.729 (<5); CREATININE FOR GFR 0.98 MG/DL (0.70-1.30); GLOMERULAR FILTRATION RATE > 60.0 (>42); GLUCOSE, FASTING 110 MG/DL (70-100); HDL CHOLESTEROL 48 MG/DL (>40); LDL CHOLESTEROL 67 MG/DL (<100); NON-HDL-C 83 MG/DL; POTASSIUM SERUM 4.4 MEQ/L (3.5-5.1); SODIUM LEVEL 141 MEQ/L (136-145); TOTAL PROTEIN 6.6 GM/DL (6.4-8.2); TRIGLYCERIDES LEVEL 82 MG/DL (<150)
[2018-06-04 15:19] LABS: ESTIMATED AVERAGE GLUCOSE 143 MG/DL (60-110); HEMOGLOBIN A1c 6.6 %
[2018-06-04 15:23] LABS: MALB URINE SIEMENS 59.6 MG/L; MAU/CREAT RATIO 29.3 MCG/MG (0.0-30.0)
== END ==
LOC: M SFHCADAM 08:32
DX: E78.2 Mixed hyperlipidemia (principal); K21.9 Gastro-esophageal reflux disease without esophagitis; E11.9 Type 2 diabetes mellitus without complications
CPT/HCPCS: 80053

== ENCOUNTER 2018-10-17 09:34 | Emergency (ER) | payer MEDICARE, OTHER ==
[~2018-10-17] VITALS: Ht 177.8 cm; Wt 86.2 kg
[~2018-10-17 09:34] MED LIST changes: +ACET500T15 PO; -ACET50TAOT PO; -IBUP200C10 PO; +IBUP200C25 PO; +IPRA0.00 NEB; -IPRASOL4 NEB
[2018-10-17] MEDS ORDERED: SYMB16INH INH (09:50)
[2018-10-17 10:34] LABS: BASO # 0.1 10^3/uL (0.0-0.2); BASO % 0.7 % (0.0-1.0); EOS # 0.2 10^3/uL (0.0-0.50); EOS % 2.7 % (0.0-3.0); HEMATOCRIT 44.1 % (42.0-52.0); LYMPH # 0.8 10^3/uL (1.5-4.5); LYMPH % 11.3 % (24.0-44.0); MEAN CORPUSCULAR HEMOGLOBIN 32.3 pg (27.0-33.0); MEAN CORPUSCULAR VOLUME 94.8 fl (80.0-96.0); MONO # 0.7 10^3/uL (0.0-0.8); MONO % 9.9 % (0.0-5.0); NEUTROPHILS # 5.6 10^3/uL (1.8-7.7); NEUTROPHILS % 75.1 % (36.0-66.0); PLATELET COUNT, AUTOMATED 204 10^3/uL (150-450); RED BLOOD COUNT 4.65 10^6/uL (4.30-6.10); WHITE BLOOD COUNT 7.4 10^3/uL (4.0-10.0)
[2018-10-17 10:46] LABS: INR 2.14; PROTHROMBIN TIME 24.3 SECONDS (12.1-14.4)
--- NOTE | 2018-10-17 10:59 | REP ---
PA and lateral chest: Comparisons are the PA and lateral chest of 11/03/[address] of 04/20/2018. There is diffuse bilateral interstitial coarsening compatible with fibrosis. This is chronically focally worse in the left lower lobe but stable and unchanged. There are no acute infiltrates or pleural effusions. There are surgical clips in the left hilus. There is a dual-chamber pacemaker. Cardiac size is upper normal, unchanged. The ophelia, mediastinum, skeletal structures are otherwise unremarkable. Impression: Chronic interstitial fibrosis, focally worse in the left lower lobe is stable and unchanged. No acute infiltrates or effusions. Electronically Signed by Franck Krueger MD 10/17/2018 10:50 A
[2018-10-17 11:02] LABS: ALBUMIN 3.5 GM/DL (3.2-5.2); ALT/SGPT 18 U/L (12-78); BILIRUBIN,DIRECT 0.2 MG/DL (0.0-0.2); BLOOD UREA NITROGEN 11 MG/DL (7-18); CALCIUM LEVEL 8.9 MG/DL (8.8-10.2); CARBON DIOXIDE LEVEL 27 MEQ/L (21-32); CHLORIDE LEVEL 106 MEQ/L (98-107); CPK CREATINE PHOSPHOKINASE 115 U/L (39-308); CREATININE FOR GFR 0.97 MG/DL (0.70-1.30); GLOMERULAR FILTRATION RATE > 60.0 (>42); GLUCOSE, FASTING 123 MG/DL (70-100); MB/CK RELATIVE INDEX 2.78 (< OR =4); NT-PRO BNP 396 PG/ML (<125); POTASSIUM SERUM 4.1 MEQ/L (3.5-5.1); SODIUM LEVEL 140 MEQ/L (136-145); TOTAL PROTEIN 6.3 GM/DL (6.4-8.2); TROPONIN I < 0.02 NG/ML (< 0.10)
[2018-10-17] MEDS ORDERED: IPRATROPIUM 0.5MG/ALBUTEROL 2.5MG INH SOL UD 3ML (DUONEB)(J7620) NEB ONE (11:30)
[2018-10-17] MEDS ORDERED: methylPREDNISolone INJ 125 MG/2 ML VIAL (J2930) IV ONE (11:30)
[2018-10-17] MEDS ORDERED: ISOVUE-370 76% 100ML VIAL (Q9967) As Ordered ONE (11:36)
--- NOTE | 2018-10-17 12:40 | REP ---
CT of the chest with IV contrast, CT pulmonary angiography protocol: Comparison is 04/20/2018 without IV contrast. There are no emboli in the pulmonary trunk or central pulmonary arteries. There are no emboli in the pulmonary lobe or segment branches. The the patient has a left upper lobectomy. This is unchanged. There are bilateral interstitial coarsening and some pleural honeycombing compatible with chronic interstitial fibrosis. This is focally most severe in the left lower lobe as previously. There are no acute infiltrates. No pleural effusions. There are borderline enlarged mediastinal aorticopulmonic window and paratracheal lymph nodes. These are stable and unchanged. The thoracic aorta is unremarkable. Cardiac size is enlarged, unchanged. There is no pericardial effusion. The visualized upper abdominal contents demonstrate calcified splenic granulomas but otherwise unremarkable. There is no adrenal mass. Impression: There are no pulmonary emboli. There are no acute infiltrates or effusions. There is advanced chronic pulmonary fibrosis, most severe in the left lower lobe, unchanged. There is a left upper lobectomy, unchanged. There is cardiomegaly, unchanged. Splenic granulomas, unchanged. Electronically Signed by Franck Krueger MD 10/17/2018 12:32 P
[2018-10-17 13:41] VITALS: O2SAT 96
[2018-10-17 16:12] LABS: CPK CREATINE PHOSPHOKINASE 120 U/L (39-308); MB/CK RELATIVE INDEX 2.67 (< OR =4); TROPONIN I < 0.02 NG/ML (< 0.10)
[2018-10-17] MEDS ORDERED: PRED20TA PO (16:36)
[2018-10-17 16:48] VITALS: BP 119/58
--- NOTE | 2018-10-18 21:29 | ECGEPIP ---
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
--- NOTE | 2018-10-18 21:36 | ECGEPIP ---
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
== END 2018-10-17 16:50 | disposition home or self-care (01) ==
LOC: EDBD 09:34 → M ED 09:34
DX: J44.1 Chronic obstructive pulmonary disease with (acute) exacerbation (principal); Z95.0 Presence of cardiac pacemaker; I45.10 Unspecified right bundle-branch block; I51.7 Cardiomegaly; E11.9 Type 2 diabetes mellitus without complications; E78.5 Hyperlipidemia, unspecified; C34.90 Malignant neoplasm of unspecified part of unspecified bronchus or lung; E84.0 Cystic fibrosis with pulmonary manifestations; I48.92 Unspecified atrial flutter; Z72.0 Tobacco use; Z90.2 Acquired absence of lung [part of]; Z79.899 Other long term (current) drug therapy; Z91.041 Radiographic dye allergy status; Z91.89 Other specified personal risk factors, not elsewhere classified
CPT/HCPCS: 71046; 71275; 80048; 80076; 80162; 82550; 82553; 83880; 84484; 85025; 85610; 93005; 93041; 94640; 94760; 96374; 99285; J2930; Q9967

== ENCOUNTER 2018-10-20 20:08 | Emergency (ER) | payer MEDICARE ==
[~2018-10-20] VITALS: Ht 177.8 cm; Wt 83.6 kg
[~2018-10-20 20:08] MED LIST changes: +SYMB16INH INH
[2018-10-20] MEDS ORDERED: DOXY100T16 PO (20:28)
[2018-10-20] MEDS ORDERED: MUCI600T31 PO (20:28)
[2018-10-20] MEDS ORDERED: IPRATROPIUM 0.5MG/ALBUTEROL 2.5MG INH SOL UD 3ML (DUONEB)(J7620) NEB PRN (20:45)
[2018-10-20 20:57] LABS: BASO % 0.6 % (0.0-1.0); EOS # 0.1 10^3/uL (0.0-0.50); EOS % 0.7 % (0.0-3.0); HEMOGLOBIN 15.7 g/dl (13.5-17.5); LYMPH # 0.8 10^3/uL (1.5-4.5); LYMPH % 12.2 % (24.0-44.0); MEAN CORPUSCULAR HEMOGLOBIN 32.4 pg (27.0-33.0); MEAN CORPUSCULAR HGB CONC 34.9 g/dl (32.0-36.5); MONO # 0.8 10^3/uL (0.0-0.8); MONO % 11.1 % (0.0-5.0); NEUTROPHILS # 5.2 10^3/uL (1.8-7.7); NEUTROPHILS % 75.1 % (36.0-66.0); PLATELET COUNT, AUTOMATED 220 10^3/uL (150-450); RED BLOOD COUNT 4.84 10^6/uL (4.30-6.10); WHITE BLOOD COUNT 6.9 10^3/uL (4.0-10.0)
[2018-10-20 21:25] LABS: BLOOD UREA NITROGEN 17 MG/DL (7-18); CALCIUM LEVEL 9.5 MG/DL (8.8-10.2); CARBON DIOXIDE LEVEL 26 MEQ/L (21-32); CHLORIDE LEVEL 101 MEQ/L (98-107); CPK CREATINE PHOSPHOKINASE 279 U/L (39-308); CREATININE FOR GFR 1.15 MG/DL (0.70-1.30); GLOMERULAR FILTRATION RATE > 60.0 (>42); GLUCOSE, FASTING 173 MG/DL (70-100); MB/CK RELATIVE INDEX 1.43 (< OR =4); SODIUM LEVEL 136 MEQ/L (136-145); TROPONIN I 0.02 NG/ML (< 0.10)
[2018-10-20] MEDS ORDERED: methylPREDNISolone INJ 125 MG/2 ML VIAL (J2930) IV ONE (21:45)
[2018-10-20] MEDS ORDERED: BENZONATATE 100 MG CAP PO ONE (21:45)
[2018-10-20 23:00] VITALS: BP 127/59
[2018-10-20] MEDS ORDERED: LEVA1TAB2 PO (23:12)
[2018-10-20] MEDS ORDERED: TESS100C PO (23:12)
[2018-10-20] MEDS ORDERED: LevoFLOXacin 500 MG TABLET PO ONE (23:15)
--- NOTE | 2018-10-21 09:45 | REP ---
REASON: Cough and dyspnea. COMPARISON: Multiple, latest 10/17/2018. Patchy bilateral lower lobe opacities are again noted and may have increased somewhat from the prior exam or are accentuated by portable technique. The technique utilized in obtaining the radiograph has magnified the cardiac silhouette and accentuated the interstitial markings. Cardiomediastinal silhouette is unchanged. Pacemaker device is unchanged. Osseous structures are unchanged. IMPRESSION: Bilateral lower lung field opacities. I cannot rule out the possibility of acute disease superimposed upon chronic change. Correlate clinically. Electronically Signed by Martínez Nelson DO 10/21/2018 01:46 P
--- NOTE | 2018-10-21 20:53 | ECGEPIP ---
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
--- NOTE | 2018-10-22 08:03 | ED PDOC ---
Post-Departure Follow-Up dr malloy faxed formal report of cxr for fu Tapan Diaz MD Oct 22, 2018 08:03
== END 2018-10-20 23:35 | disposition home or self-care (01) ==
LOC: M ED 20:08
DX: J84.10 Pulmonary fibrosis, unspecified (principal); J44.0 Chronic obstructive pulmonary disease with (acute) lower respiratory infection; J20.8 Acute bronchitis due to other specified organisms; I45.10 Unspecified right bundle-branch block; I51.7 Cardiomegaly; R94.31 Abnormal electrocardiogram [ECG] [EKG]; Z79.51 Long term (current) use of inhaled steroids; Z79.899 Other long term (current) drug therapy; Z95.0 Presence of cardiac pacemaker; Z91.041 Radiographic dye allergy status; Z91.048 Other nonmedicinal substance allergy status
CPT/HCPCS: 71045; 80048; 82550; 82553; 84484; 85025; 93005; 93041; 94640; 94760; 96374; 99285; J2930

== ENCOUNTER → 2018-11-19 | Outpatient (REF) | payer MEDICARE ==
[~2018-11-19] MED LIST changes: +LEVA1TAB2 PO; +MUCI600T31 PO; +TESS100C PO
[2018-11-19 16:29] LABS: HEMOGLOBIN A1c 7.5 %
[2018-11-19 17:45] LABS: ALBUMIN 3.4 GM/DL (3.2-5.2); ALT/SGPT 24 U/L (12-78); BILIRUBIN,TOTAL 0.8 MG/DL (0.2-1.0); BLOOD UREA NITROGEN 14 MG/DL (7-18); CALCIUM LEVEL 9.2 MG/DL (8.8-10.2); CARBON DIOXIDE LEVEL 34 MEQ/L (21-32); CHLORIDE LEVEL 103 MEQ/L (98-107); CHOLESTEROL LEVEL 158 MG/DL (<200); CHOLESTEROL RISK RATIO 2.821 (<5); CREATININE FOR GFR 1.08 MG/DL (0.70-1.30); GLOMERULAR FILTRATION RATE > 60.0 (>42); GLUCOSE, FASTING 149 MG/DL (70-100); HDL CHOLESTEROL 56 MG/DL (>40); LDL CHOLESTEROL 77 MG/DL (<100); NON-HDL-C 102 MG/DL; POTASSIUM SERUM 4.3 MEQ/L (3.5-5.1); SODIUM LEVEL 143 MEQ/L (136-145); TOTAL PROTEIN 7.1 GM/DL (6.4-8.2); TRIGLYCERIDES LEVEL 125 MG/DL (<150)
[2018-11-19 20:09] LABS: MAU/CREAT RATIO 21.6 MCG/MG (0.0-30.0)
== END ==
LOC: M SFHCADAM 09:23
PROVIDERS: ATTEND Physician Assistant Medical
DX: I50.32 Chronic diastolic (congestive) heart failure (principal); E78.2 Mixed hyperlipidemia; K21.9 Gastro-esophageal reflux disease without esophagitis; E11.9 Type 2 diabetes mellitus without complications

== ENCOUNTER 2019-05-05 14:45 | Emergency (ER) | payer OTHER, MEDICARE ==
[~2019-05-05] VITALS: Ht 177.8 cm; Wt 80.5 kg
[~2019-05-05 14:45] MED LIST changes: -DOXY100T16 PO; +DOXY100T27 PO; -OMEP20CA3 PO; +OMEP20CA4 PO; -OMEP40CA2 PO; +OMEP40CA97 PO
[2019-05-05 15:36] LABS: BASO % 0.6 % (0.0-1.0); EOS # 0.2 10^3/uL (0.0-0.5); EOS % 3.1 % (0.0-3.0); HEMATOCRIT 52.1 % (42.0-52.0); HEMOGLOBIN 17.6 g/dl (13.5-17.5); LYMPH # 1.1 10^3/uL (1.5-5.0); LYMPH % 17.3 % (24.0-44.0); MEAN CORPUSCULAR HEMOGLOBIN 32.7 pg (27.0-33.0); MEAN CORPUSCULAR HGB CONC 33.8 g/dl (32.0-36.5); MEAN CORPUSCULAR VOLUME 96.8 fl (80.0-96.0); MONO # 0.5 10^3/uL (0.0-0.8); MONO % 8.1 % (0.0-5.0); NEUTROPHILS # 4.4 10^3/uL (1.5-8.5); NEUTROPHILS % 70.6 % (36.0-66.0); PLATELET COUNT, AUTOMATED 202 10^3/uL (150-450); RED BLOOD COUNT 5.38 10^6/uL (4.30-6.10); WHITE BLOOD COUNT 6.2 10^3/uL (4.0-10.0)
--- NOTE | 2019-05-05 15:42 | REP ---
Clinical: Trauma. Comparison: none. Findings: Age-related atrophy and microvascular ischemic changes are appreciated. The ventricles and sulci are symmetric. Norton-white differentiation is maintained. There is no evidence for acute intracranial hemorrhage, mass/mass effect, pathology or infarction. No extra-axial fluid collection. Calvarium is intact. Paranasal sinuses and mastoid air cells are clear. Impression: Age related atrophy and microvascular ischemic changes. No acute intracranial hemorrhage, infarction, or mass/mass effect. Electronically Signed by Shayne Correia MD 05/05/2019 03:34 P
--- NOTE | 2019-05-05 15:45 | REP ---
Clinical: Trauma. Technique: Axial noncontrast images from the skull base to the thoracic inlet with coronal and sagittal re-formations. Findings: Advanced multilevel degenerative changes are appreciated. No obvious acute fracture / compression injury or subluxation. Spinal canal is grossly patent. Posterior elements and spinous processes are intact. Paravertebral soft tissues are normal. Impression: 1. Advanced multilevel degenerative spondylosis. 2. No obvious acute fracture / compression injury or subluxation. Electronically Signed by Shayne Correia MD 05/05/2019 03:36 P
--- NOTE | 2019-05-05 15:50 | REP ---
Clinical: Trauma. Technique: Axial noncontrast images from the thoracic inlet to the upper abdomen with coronal and sagittal re-formations. Findings: Emphysematous changes, bronchiectasis and diffuse fibrosis noted. No acute consolidation/contusion, effusion, or pneumothorax. Mediastinal lymph nodes measuring up to 9 mm are nonspecific and likely reactive. Thoracic aorta, pulmonary vasculature, and heart/pericardium without evidence for injury. The musculoskeletal structures are intact. Impression: Chronic changes as described above including fibrosis and emphysematous disease. No acute trauma/injury. No acute consolidation/contusion, or effusion. Electronically Signed by Shayne Correia MD 05/05/2019 03:41 P
--- NOTE | 2019-05-05 15:53 | REP ---
Clinical: Trauma. Technique: Axial noncontrast images from the lung bases to the pubic symphysis with coronal and sagittal re-formations. Findings: Liver, spleen, pancreas and bilateral adrenal glands are normal. Cholelithiasis noted without acute cholecystitis. Kidneys demonstrate few small nonobstructing intrarenal calculi up to approximately 2 mm. The enteric system is without obstruction or acute inflammatory process. Colonic and sigmoid diverticulosis noted without acute diverticulitis. Normal terminal ileum and appendix identified in the right lower quadrant. Pelvis demonstrates normal bladder. Enlarged prostate gland. No ascites. No free air. No adenopathy. Atherosclerotic changes to the aorta without aneurysm. Musculoskeletal structures demonstrate degenerative changes without obvious acute injury. Impression: 1. No acute intra-abdominal trauma/injury. 2. Cholelithiasis. 3. Nonobstructing renal calculi. 4. Diverticulosis. 5. Enlarged prostate gland. Electronically Signed by Shayne Coreria MD 05/05/2019 03:44 P
[2019-05-05 15:59] LABS: ALBUMIN 3.9 GM/DL (3.2-5.2); ALT/SGPT 30 U/L (12-78); AMYLASE 52 U/L (25-115); BILIRUBIN,DIRECT 0.2 MG/DL (0.0-0.2); BILIRUBIN,TOTAL 0.9 MG/DL (0.2-1.0); CK-MB VALUE MASS 4.5 NG/ML (<3.6); CPK CREATINE PHOSPHOKINASE 166 U/L (39-308); LIPASE 87 U/L (73-393); MB/CK RELATIVE INDEX 2.71 (< OR =4); TOTAL PROTEIN 7.6 GM/DL (6.4-8.2); TROPONIN I < 0.02 NG/ML (< 0.10)
[2019-05-05 16:05] LABS: INR 1.68; PROTHROMBIN TIME 19.5 SECONDS (11.8-14.0)
[2019-05-05 17:45] VITALS: BP 139/77
[2019-05-05] MEDS ORDERED: NORCO, ANEXSIA 5/325MG TABLET (HYDROcodone/ACETAMINOPHEN) PO ONE (17:45)
--- NOTE | 2019-05-05 17:50 | REP ---
Clinical: Trauma. Technique: Internal rotation, external rotation, and Y view of the right shoulder. Findings: Generalized age-related degenerative changes are appreciated. No obvious acute fracture or dislocation. Subacromial space is normal. No calcified loose bodies identified. Impression: Age-related degenerative changes. No obvious acute fracture or dislocation. Electronically Signed by Shayne Correia MD 05/05/2019 05:42 P
--- NOTE | 2019-05-14 13:19 | ED PDOC ---
Post-Departure Follow-Up radiology report faxed to frederic Paulino Sarah MD May 14, 2019 13:19
== END 2019-05-05 18:36 | disposition home or self-care (01) ==
LOC: EDBD 14:45 → M ED 14:45
DX: S00.01XA Abrasion of scalp, initial encounter (principal); S49.91XA Unspecified injury of right shoulder and upper arm, initial encounter; V48.5XXA Car driver injured in noncollision transport accident in traffic accident, initial encounter; M47.819 Spondylosis without myelopathy or radiculopathy, site unspecified; J47.9 Bronchiectasis, uncomplicated; J84.10 Pulmonary fibrosis, unspecified; K80.80 Other cholelithiasis without obstruction; N20.0 Calculus of kidney; K57.30 Diverticulosis of large intestine without perforation or abscess without bleeding; N40.0 Benign prostatic hyperplasia without lower urinary tract symptoms; E11.9 Type 2 diabetes mellitus without complications; J44.9 Chronic obstructive pulmonary disease, unspecified; Z85.118 Personal history of other malignant neoplasm of bronchus and lung; F17.210 Nicotine dependence, cigarettes, uncomplicated; Z88.6 Allergy status to analgesic agent; Z91.041 Radiographic dye allergy status; Z91.048 Other nonmedicinal substance allergy status; Z79.02 Long term (current) use of antithrombotics/antiplatelets; Z79.51 Long term (current) use of inhaled steroids; Z79.899 Other long term (current) drug therapy

== ENCOUNTER → 2019-06-03 | Outpatient (REF) | payer MEDICARE ==
[~2019-06-03] MED LIST changes: -SIMV20TA2 PO; +SIMV20TA22 PO
[2019-06-03 18:22] LABS: ALBUMIN 3.7 GM/DL (3.2-5.2); ALT/SGPT 22 U/L (12-78); BILIRUBIN,TOTAL 0.9 MG/DL (0.2-1.0); BLOOD UREA NITROGEN 16 MG/DL (7-18); CALCIUM LEVEL 9.7 MG/DL (8.8-10.2); CARBON DIOXIDE LEVEL 31 MEQ/L (21-32); CHLORIDE LEVEL 103 MEQ/L (98-107); CHOLESTEROL LEVEL 149 MG/DL (<200); CHOLESTEROL RISK RATIO 2.614 (<5); CREATININE FOR GFR 1.23 MG/DL (0.70-1.30); GLOMERULAR FILTRATION RATE > 60.0 (>42); GLUCOSE, FASTING 111 MG/DL (70-100); HDL CHOLESTEROL 57 MG/DL (>40); LDL CHOLESTEROL 65 MG/DL (<100); NON-HDL-C 92 MG/DL; POTASSIUM SERUM 5.1 MEQ/L (3.5-5.1); SODIUM LEVEL 140 MEQ/L (136-145); TOTAL PROTEIN 7.3 GM/DL (6.4-8.2); TRIGLYCERIDES LEVEL 135 MG/DL (<150)
[2019-06-03 18:25] LABS: BASO # 0.1 10^3/uL (0.0-0.2); BASO % 0.7 % (0.0-1.0); EOS # 0.2 10^3/uL (0.0-0.5); EOS % 2.5 % (0.0-3.0); HEMOGLOBIN 17.2 g/dl (13.5-17.5); LYMPH # 1.4 10^3/uL (1.5-5.0); LYMPH % 16.6 % (24.0-44.0); MEAN CORPUSCULAR HEMOGLOBIN 32.6 pg (27.0-33.0); MEAN CORPUSCULAR HGB CONC 33.1 g/dl (32.0-36.5); MEAN CORPUSCULAR VOLUME 98.5 fl (80.0-96.0); MONO # 0.8 10^3/uL (0.0-0.8); MONO % 9.3 % (0.0-5.0); NEUTROPHILS # 5.9 10^3/uL (1.5-8.5); NEUTROPHILS % 70.5 % (36.0-66.0); PLATELET COUNT, AUTOMATED 251 10^3/uL (150-450); RED BLOOD COUNT 5.28 10^6/uL (4.30-6.10); WHITE BLOOD COUNT 8.4 10^3/uL (4.0-10.0)
[2019-06-03 18:34] LABS: HEMOGLOBIN A1c 6.6 %
== END ==
LOC: M SFHCADAM 13:25
PROVIDERS: ATTEND Physician Assistant Medical
DX: E11.9 Type 2 diabetes mellitus without complications (principal); E78.2 Mixed hyperlipidemia; I50.32 Chronic diastolic (congestive) heart failure

== ENCOUNTER → 2019-07-16 | Outpatient (CLI) | payer MEDICARE ==
[~2019-07-16] MED LIST changes: +OMEP1CAP73 PO; -OMEP20CA4 PO
--- NOTE | 2019-07-17 05:52 | REP ---
Clinical: Follow up abnormal findings. Technique: Axial noncontrast images from the thoracic inlet to the upper abdomen with coronal and sagittal re-formations. Comparison: 05/05/2019, 10/17/2018 . Findings: Evidence for prior left upper lobectomy. Chronic diffuse emphysematous disease with scattered fibrosis appears essentially unchanged. Small 6 mm nodule in the anterior right upper lobe (image 35) appears less pronounced than prior examinations. No acute consolidation, new nodule or mass lesion. No effusion. No pneumothorax. Chronic bronchiectasis. Mediastinum demonstrates atherosclerotic changes to the thoracic aorta and coronary arteries without aortic aneurysm or cardiomegaly. No pericardial effusion. No significant adenopathy. Limited upper abdomen demonstrates normal bilateral adrenal glands along with cholelithiasis. Surrounding musculoskeletal structures demonstrate age-related changes without focal abnormality. Pacemaker noted. Impression: 1. Stable chronic emphysematous changes and fibrosis. 2. Small 6 mm nodule in the anterior right upper lobe appears less pronounced than 10/17/2018. Consider 6-9 month follow-up to confirm stability. Electronically Signed by Shayne Correia MD 07/17/2019 05:44 A
== END ==
LOC: M RAD 09:55
PROVIDERS: ATTEND Internal Medicine Pulmonary Disease
DX: R91.8 Other nonspecific abnormal finding of lung field (principal)

== ENCOUNTER → 2019-08-20 | Outpatient (CLI) | payer MEDICARE ==
[~2019-08-20] MED LIST changes: +NORC1TAB7 PO
--- NOTE | 2019-08-21 07:23 | REP ---
Clinical: Chronic obstructive pulmonary disease. Technique: PA and lateral. Comparison: 10/17/2018. Findings: Mediastinum and cardiac silhouette are stable. Advanced COPD/emphysematous changes and scattered fibrosis again noted. Subtle superimposed acute process cannot be excluded. Impression: Chronic-appearing changes. Electronically Signed by Shayne Correia MD 08/20/2019 05:00 P
== END ==
LOC: M ADAMS 16:42
PROVIDERS: ATTEND Physician Assistant Medical
DX: J44.1 Chronic obstructive pulmonary disease with (acute) exacerbation (principal)
CPT/HCPCS: 71046; G0463

== ENCOUNTER 2019-09-10 12:55 | Emergency (ER) | payer MEDICARE ==
[~2019-09-10] VITALS: Ht 177.8 cm; Wt 82.5 kg
[~2019-09-10 12:55] MED LIST changes: -NORC1TAB7 PO
[2019-09-10 16:08] LABS: BASO % 0.5 % (0.0-1.0); EOS # 0.3 10^3/uL (0.0-0.5); EOS % 4.3 % (0.0-3.0); HEMATOCRIT 46.1 % (42.0-52.0); HEMOGLOBIN 15.7 g/dl (13.5-17.5); LYMPH # 1.1 10^3/uL (1.5-5.0); LYMPH % 17.3 % (24.0-44.0); MEAN CORPUSCULAR HEMOGLOBIN 32.5 pg (27.0-33.0); MEAN CORPUSCULAR HGB CONC 34.1 g/dl (32.0-36.5); MEAN CORPUSCULAR VOLUME 95.4 fl (80.0-96.0); MONO # 0.5 10^3/uL (0.0-0.8); MONO % 7.2 % (0.0-5.0); NEUTROPHILS # 4.4 10^3/uL (1.5-8.5); NEUTROPHILS % 70.5 % (36.0-66.0); PLATELET COUNT, AUTOMATED 203 10^3/uL (150-450); RED BLOOD COUNT 4.83 10^6/uL (4.30-6.10); WHITE BLOOD COUNT 6.2 10^3/uL (4.0-10.0)
[2019-09-10 16:11] LABS: APPEARANCE, URINE CLEAR (CLEAR); BACTERIA, URINE AUTO NEGATIVE (NEGATIVE); BILIRUBIN, URINE AUTO NEGATIVE (NEGATIVE); BLOOD, URINE BLOOD NEGATIVE (NEGATIVE); COLOR, URINE YELLOW (YELLOW); GLUCOSE, URINE (UA) AUTO 3+ mg/dL (NEGATIVE); KETONE, URINE AUTO NEGATIVE (NEGATIVE); LEUKOCYTE ESTERASE, URINE AUTO NEGATIVE (NEGATIVE); MUCUS, URINE SMALL (NEGATIVE); NITRITE, URINE AUTO NEGATIVE (NEGATIVE); PROTEIN, URINE AUTO NEGATIVE (NEGATIVE); RBC, URINE AUTO 4 /HPF (0-3); SQUAMOUS EPITHELIAL CELL UR AU 2 /HPF (0-6); UROBILINOGEN, URINE AUTO 0.2 mg/dL (0.0-2.0); WBC, URINE AUTO 3 /HPF (0-3)
[2019-09-10 16:47] LABS: ALBUMIN 3.1 GM/DL (3.2-5.2); ALT/SGPT 18 U/L (12-78); AMYLASE 40 U/L (25-115); BILIRUBIN,DIRECT 0.1 MG/DL (0.0-0.2); BILIRUBIN,TOTAL 0.6 MG/DL (0.2-1.0); BLOOD UREA NITROGEN 12 MG/DL (7-18); CALCIUM LEVEL 9.1 MG/DL (8.8-10.2); CARBON DIOXIDE LEVEL 31 MEQ/L (21-32); CHLORIDE LEVEL 101 MEQ/L (98-107); CREATININE FOR GFR 0.94 MG/DL (0.70-1.30); GLOMERULAR FILTRATION RATE > 60.0 (>42); GLUCOSE, FASTING 231 MG/DL (70-100); LIPASE 63 U/L (73-393); POTASSIUM SERUM 4.5 MEQ/L (3.5-5.1); SODIUM LEVEL 138 MEQ/L (136-145); TOTAL PROTEIN 6.3 GM/DL (6.4-8.2)
[2019-09-10 17:30] VITALS: BP 118/61
--- NOTE | 2019-09-10 17:49 | REPVR ---
PROCEDURE INFORMATION: Exam: CT Chest Without Contrast Exam date and time: 09/10/2019 4:59 PM Age: 74 years old Clinical indication: Injury or trauma; Fall; Initial encounter; Blunt trauma (contusions or hematomas); Additional info: Fall off of truck, right mid post thoracic TECHNIQUE: Imaging protocol: Computed tomography of the chest without contrast. Radiation optimization: All CT scans at this facility use at least one of these dose optimization techniques: automated exposure control; mA and/or kV adjustment per patient size (includes targeted exams where dose is matched to clinical indication); or iterative reconstruction. COMPARISON: CT Chest without contrast 07/16/2019 10:14 AM FINDINGS: Tubes, catheters and devices: A dual lead LEFT subclavian permanent pacemaker is present. The RIGHT atrial and RIGHT ventricular leads appear to be in good position. Lungs: Previous left upper lobe and lingular resection. Peripheral interlobular septal thickening with architectural distortion, with an apico-basal gradient. Lower lung zone mild cicatricial bronchiectasis and occasional subpleural cysts. Pleural space: No pneumothorax identified. No pleural effusion demonstrated. Heart: Left main, LAD and LCx calcified coronary atherosclerosis. Mediastinum: No mediastinal hematoma identified. Aorta: Unremarkable. No aortic aneurysm. Lymph nodes: No enlarged lymph nodes. Bones/joints: No acute thoracic spine or sternal fracture identified. No displaced rib fracture demonstrated. The lower most ribs are excluded. Thoracic spine vertebral body marginal osteophytes are noted at multiple levels. Diffuse osteopenia. Soft tissues: Unremarkable. IMPRESSION: 1. Previous left upper lobe and lingular resection. 2. Pulmonary interstitial fibrosis, stable appearance compared to prior study. 3. Coronary atherosclerosis. 4. No acute injury identified. 5. Please see the abdomen/pelvis CT report of the same date for additional findings. Electronically signed by: Alan Donis On 09/10/2019 17:49:27 PM
--- NOTE | 2019-09-10 17:50 | REP ---
HISTORY: Pain after trauma three weeks ago. COMPARISON: The accompanying frontal view of the chest has been compared to the latest prior chest examination of 10/20/2018, a portable exam. FINDINGS: There are chronic lung field changes seen on the frontal view of the chest, status quo. There is a dual chamber bipolar pacemaker device, status quo. Postoperative changes are again seen in the left hilum, status quo. There is a slight fracture involving the anterior aspect of the right 9th rib. The bones are demineralized. There is a possible old left 6th rib fracture. IMPRESSION: Chronic lung field changes and other findings as described above. Electronically Signed by Martínez Nelson DO 09/10/2019 05:58 P
--- NOTE | 2019-09-10 17:53 | REPVR ---
PROCEDURE INFORMATION: Exam: CT Abdomen And Pelvis Without Contrast Exam date and time: 09/10/2019 4:59 PM Age: 74 years old Clinical indication: Injury or trauma; Fall; Late effect from previous injury; Blunt; Upper; Additional info: Fall off of truck, right mid post thoracic TECHNIQUE: Imaging protocol: Computed tomography of the abdomen and pelvis without contrast. Radiation optimization: All CT scans at this facility use at least one of these dose optimization techniques: automated exposure control; mA and/or kV adjustment per patient size (includes targeted exams where dose is matched to clinical indication); or iterative reconstruction. COMPARISON: CT ABD PELVIS W/O CONTRAST 05/05/2019 3:27 PM FINDINGS: Liver: Normal. No mass. Gallbladder and bile ducts: Several dependent small gallstones are noted posteriorly in the partially contracted gallbladder. No gallbladder wall thickening or pericholecystic fluid identified. Pancreas: Severe pancreatic atrophy. Spleen: The spleen demonstrates several small calcifications consistent with healed granulomatous disease. Adrenals: Normal. No mass. Kidneys and ureters: RIGHT mid renal posterior 1.7 mm calyceal calculus. LEFT renal anterior lower pole 2.6 mm calyceal calculus. Stomach and bowel: Sigmoid colonic diverticula are present without evidence of diverticulitis. There is mildly increased stool noted in the ascending and proximal transverse colon. Appendix: The vermiform appendix is normal. Intraperitoneal space: Unremarkable. No free air. No significant fluid collection. Vasculature: Moderate aortic atherosclerotic calcification without aneurysm. The iliac arteries show moderate bilateral atherosclerotic calcifications without evidence of aneurysm. Lymph nodes: No enlarged lymph nodes. Bladder: Unremarkable as visualized. Reproductive: Unremarkable as visualized. Bones/joints: Minimally displaced lateral right 10th rib fracture. Anterior bridging LEFT sacroiliac joint marginal osteophytes. No pelvic or sacral fracture identified. Bilateral lower lumbar facet primary osteoarthritis. Lumbar spine vertebral body marginal osteophytes are noted at multiple levels. No acute lumbar spine fracture identified. Moderate right hip primary osteoarthritis. Soft tissues: Unremarkable. Other findings: The LEFT hemidiaphragm is moderately elevated. IMPRESSION: 1. Minimally displaced lateral right 10th rib fracture. 2. Bilateral renal calyceal lithiasis. 3. Diverticulosis. 4. Mild abdominal colonic constipation. 5. Cholelithiasis. 6. Please see the CT chest report of the same date for additional findings. Electronically signed by: Alan Donis On 09/10/2019 17:52:52 PM
[2019-09-10] MEDS ORDERED: NORC1TAB7 PO (18:03)
== END 2019-09-10 18:17 | disposition short-term general hospital (02) ==
LOC: M ED 12:55
DX: S22.41XA Multiple fractures of ribs, right side, initial encounter for closed fracture (principal); W19.XXXA Unspecified fall, initial encounter; Y92.099 Unspecified place in other non-institutional residence as the place of occurrence of the external cause; Y93.9 Activity, unspecified; Y99.9 Unspecified external cause status; I10 Essential (primary) hypertension; F17.200 Nicotine dependence, unspecified, uncomplicated; N20.0 Calculus of kidney; K57.30 Diverticulosis of large intestine without perforation or abscess without bleeding; K59.00 Constipation, unspecified; K80.20 Calculus of gallbladder without cholecystitis without obstruction; Z90.2 Acquired absence of lung [part of]; J84.10 Pulmonary fibrosis, unspecified; I25.10 Atherosclerotic heart disease of native coronary artery without angina pectoris; Z95.0 Presence of cardiac pacemaker; Z79.899 Other long term (current) drug therapy; Z91.040 Latex allergy status; Z91.89 Other specified personal risk factors, not elsewhere classified; Z88.8 Allergy status to other drugs, medicaments and biological substances

== ENCOUNTER → 2019-12-20 | Outpatient (REF) | payer MEDICARE ==
[~2019-12-20] MED LIST changes: +ADV250INH INH; +DIGO0.253 PO; +MULTCAP PO; +NORC1TAB7 PO; +ONDA4TAB6 PO
[2019-12-20 14:24] LABS: BASO # 0.1 10^3/uL (0.0-0.2); BASO % 0.9 % (0.0-1.0); EOS # 0.2 10^3/uL (0.0-0.5); EOS % 3.6 % (0.0-3.0); HEMATOCRIT 50.1 % (42.0-52.0); HEMOGLOBIN 16.9 g/dl (13.5-17.5); LYMPH # 1.3 10^3/uL (1.5-5.0); LYMPH % 19.8 % (24.0-44.0); MEAN CORPUSCULAR HEMOGLOBIN 32.4 pg (27.0-33.0); MEAN CORPUSCULAR HGB CONC 33.7 g/dl (32.0-36.5); MONO # 0.8 10^3/uL (0.0-0.8); MONO % 11.2 % (0.0-5.0); NEUTROPHILS # 4.3 10^3/uL (1.5-8.5); NEUTROPHILS % 64.4 % (36.0-66.0); PLATELET COUNT, AUTOMATED 242 10^3/uL (150-450); RED BLOOD COUNT 5.22 10^6/uL (4.30-6.10); WHITE BLOOD COUNT 6.7 10^3/uL (4.0-10.0)
[2019-12-20 14:58] LABS: ALBUMIN 3.6 GM/DL (3.2-5.2); ALT/SGPT 25 U/L (12-78); BILIRUBIN,TOTAL 1.2 MG/DL (0.2-1.0); BLOOD UREA NITROGEN 11 MG/DL (7-18); CALCIUM LEVEL 9.7 MG/DL (8.8-10.2); CARBON DIOXIDE LEVEL 32 MEQ/L (21-32); CHLORIDE LEVEL 102 MEQ/L (98-107); CREATININE FOR GFR 1.15 MG/DL (0.70-1.30); GLOMERULAR FILTRATION RATE > 60.0 (>42); GLUCOSE, FASTING 169 MG/DL (70-100); POTASSIUM SERUM 5.1 MEQ/L (3.5-5.1); SODIUM LEVEL 137 MEQ/L (136-145)
[2019-12-20 14:59] LABS: MAU/CREAT RATIO 18.4 MCG/MG (0.0-30.0)
== END ==
LOC: M SFHCADAM 12:42
PROVIDERS: ATTEND Physician Assistant Medical
DX: E11.9 Type 2 diabetes mellitus without complications (principal); I10 Essential (primary) hypertension
CPT/HCPCS: 36415; 80053; 82043; 83036; 84443; 85025; G0463

== ENCOUNTER → 2020-02-13 | Outpatient (CLI) | payer MEDICARE ==
[~2020-02-13] MED LIST changes: +TAMS1CAP17 PO
--- NOTE | 2020-03-23 09:48 | REP ---
CT OF THE CHEST WITHOUT CONTRAST: HISTORY: Other nonspecific abnormal finding of lung field. COMPARISON: Chest CT study from 09/10/19, 07/16/19. FINDINGS: There are 2 suspicious spiculated nodules in the right upper lobe. The largest of these is an anterior segment right upper lobe measuring 2.0 cm in greatest diameter on sagittal MPR image. Axial image shows the greatest transverse diameter of 18 mm. This is seen on page 31 of 112 in series 201 of today's study. The second suspicious spiculated nodule measures 10 mm in diameter and is also present in the right upper lobe a little superior on page 24 of 112 series 201 of today's study. These are larger than previous. No other suspicious pulmonary nodule is seen. There is again noted to be advanced diffuse interstitial fibrosis most pronounced in the remaining left lower lobe where there is honeycombing. Extensive subpleural fibrosis is seen in the right lower lobe and in the right upper lobe, unchanged from prior studies. There is a pacemaker in the right heart via the left side. No pleural or pericardial effusion is seen. No evidence of adenopathy. Normal adrenal glands. Radiopaque material is seen in the lumen of the gallbladder consistent with sludge and/or gravel-like stones. There are granulomatous calcifications in the spleen. IMPRESSION: There are 2 suspicious spiculated nodules in the right upper lobe of the lung worrisome for primary lung malignancy. Advanced COPD and interstitial fibrosis changes are again noted. Postoperative partial pneumonectomy changes on the left. MTDD
== END ==
LOC: M RAD 08:30
PROVIDERS: ATTEND Internal Medicine Pulmonary Disease
DX: R91.8 Other nonspecific abnormal finding of lung field (principal); J44.9 Chronic obstructive pulmonary disease, unspecified; Z90.2 Acquired absence of lung [part of]

== ENCOUNTER 2020-03-03 12:19 | Emergency (ER) | payer MEDICARE ==
[~2020-03-03] VITALS: Ht 177.8 cm; Wt 76.4 kg
[~2020-03-03 12:19] MED LIST changes: -ADV250INH INH; -DIGO0.253 PO; -MULTCAP PO; -ONDA4TAB6 PO; -TAMS1CAP17 PO
[2020-03-03] MEDS ORDERED: DIGO0.253 PO (13:05)
[2020-03-03] MEDS ORDERED: ONDANSETRON 4 MG ORAL DISINTEGRATING TAB PO ONE (13:45)
[2020-03-03 14:32] LABS: BASO # 0.1 10^3/uL (0.0-0.2); BASO % 0.8 % (0.0-1.0); EOS # 0.1 10^3/uL (0.0-0.5); HEMATOCRIT 48.8 % (42.0-52.0); HEMOGLOBIN 16.7 g/dl (13.5-17.5); LYMPH # 0.9 10^3/uL (1.5-5.0); MEAN CORPUSCULAR HEMOGLOBIN 32.6 pg (27.0-33.0); MEAN CORPUSCULAR HGB CONC 34.2 g/dl (32.0-36.5); MEAN CORPUSCULAR VOLUME 95.3 fl (80.0-96.0); MONO # 0.6 10^3/uL (0.0-0.8); MONO % 9.3 % (0.0-5.0); NEUTROPHILS % 74.7 % (36.0-66.0); PLATELET COUNT, AUTOMATED 214 10^3/uL (150-450); RED BLOOD COUNT 5.12 10^6/uL (4.30-6.10); WHITE BLOOD COUNT 6.6 10^3/uL (4.0-10.0)
[2020-03-03 14:53] LABS: ALBUMIN 3.6 GM/DL (3.2-5.2); ALT/SGPT 18 U/L (12-78); BILIRUBIN,DIRECT 0.3 MG/DL (0.0-0.2); BLOOD UREA NITROGEN 18 MG/DL (7-18); CARBON DIOXIDE LEVEL 30 MEQ/L (21-32); CHLORIDE LEVEL 104 MEQ/L (98-107); CREATININE FOR GFR 1.04 MG/DL (0.70-1.30); GLOMERULAR FILTRATION RATE > 60.0 (>42); GLUCOSE, FASTING 106 MG/DL (70-100); SODIUM LEVEL 139 MEQ/L (136-145); TOTAL PROTEIN 6.8 GM/DL (6.4-8.2)
[2020-03-03 14:54] LABS: LIPASE 59 U/L (73-393)
[2020-03-03] MEDS ORDERED: ONDA4TAB6 PO (15:11)
[2020-03-03 15:15] VITALS: BP 109/60
[2020-03-27] MEDS ORDERED: MULTCAP PO (09:41)
[2020-04-23] MEDS ORDERED: ADV250INH INH (10:47)
[2020-04-23] MEDS ORDERED: MUCI600T31 PO (10:47)
[2020-05-14] MEDS ORDERED: TAMS1CAP17 PO (08:35)
== END 2020-03-03 15:23 | disposition home or self-care (01) ==
LOC: M ED 12:19
DX: A05.9 Bacterial foodborne intoxication, unspecified (principal); F17.210 Nicotine dependence, cigarettes, uncomplicated; I10 Essential (primary) hypertension; E78.5 Hyperlipidemia, unspecified; J44.9 Chronic obstructive pulmonary disease, unspecified; K57.30 Diverticulosis of large intestine without perforation or abscess without bleeding; F33.9 Major depressive disorder, recurrent, unspecified; F41.9 Anxiety disorder, unspecified; Z88.8 Allergy status to other drugs, medicaments and biological substances; Z91.041 Radiographic dye allergy status; Z79.51 Long term (current) use of inhaled steroids; Z79.899 Other long term (current) drug therapy
CPT/HCPCS: 36415; 80048; 80076; 83690; 85025; 99283; Q0162

== ENCOUNTER → 2020-03-10 | Outpatient (CLI) | payer MEDICARE ==
[~2020-03-10] MED LIST changes: +ADV250INH INH; +DIGO0.253 PO; +MULTCAP PO; +ONDA4TAB6 PO; +TAMS1CAP17 PO
--- NOTE | 2020-04-01 07:32 | REP ---
PET/CT STUDY HISTORY: Restaging, lung nodules. COMPARISON: Comparison chest CT studies are from February 13, 2020, and September 10, 2019. TECHNIQUE: Forty-five minutes following the intravenous injection of an 8.22 millicurie dose of FDG F18, whole body PET scan imaging was acquired from the skull base to the proximal thighs. PET/CT FINDINGS: The two recently identified spiculated enlarging nodules in the right upper lobe are both mildly hypermetabolic. Maximum standard uptake value on the more superior of the two right upper lobe nodules is 3.39 and that of the more inferior is 7.0. There is an additional nodule noted on the left which is new compared with the August study and visible in retrospect on the January study. This has maximum standard uptake value of 5.70 and measures approximately 13 to 14 mm, although its margins are ill defined. Lastly, in the right lower lobe, there is mildly hypermetabolic uptake in a more densely opacified area of fibrosis in the right lower lobe, this is not mass like. Maximum SUV value 3.69. This is most consistent with inflammation. There are milder areas of metabolic activity in the extensive pulmonary fibrosis seen elsewhere. There is an equivocal subcarinal lymph node to the right of midline adjacent to the esophagus with a maximum SUV value of 2.91. Head and neck soft tissues are unremarkable. No abnormal hypermetabolic uptake is seen in the abdomen or pelvis. This PET/CT is otherwise unremarkable. IMPRESSION: Suspicious hypermetabolic activity in the two spiculated enlarging right upper lobe nodules and in an additional nodule in the left inferior perihilar region. There is mildly increased parenchymal uptake in areas of fibrosis in this patient with advanced COPD. MTDD
== END ==
LOC: M PLARAD 11:31
PROVIDERS: ATTEND Internal Medicine Pulmonary Disease
DX: C34.11 Malignant neoplasm of upper lobe, right bronchus or lung (principal)
CPT/HCPCS: 78815; A9552

== ENCOUNTER → 2020-03-18 | Outpatient (REF) | payer MEDICARE ==
[2020-03-18 17:35] LABS: PLATELET COUNT, AUTOMATED 254 10^3/uL (150-450)
[2020-03-18 17:51] LABS: INR 1.39; PROTHROMBIN TIME 17.4 SECONDS (11.8-14.0)
[2020-03-18 17:52] LABS: PARTIAL THROMBOPLASTIN TIME 37.4 SECONDS (25.0-38.4)
== END ==
LOC: M LABDRWAD 16:59 → M LAB REF 16:59
PROVIDERS: ATTEND Internal Medicine Pulmonary Disease
DX: R91.8 Other nonspecific abnormal finding of lung field (principal)

== ENCOUNTER → 2020-03-30 | Outpatient (REF) | payer MEDICARE ==
[2020-03-30 18:14] LABS: INR 0.99; PROTHROMBIN TIME 13.3 SECONDS (12.5-14.3)
[2020-03-30 18:15] LABS: PARTIAL THROMBOPLASTIN TIME 33.3 SECONDS (24.2-38.5)
== END ==
LOC: M LAB REF 16:54
PROVIDERS: ATTEND Internal Medicine Pulmonary Disease
DX: Z01.812 Encounter for preprocedural laboratory examination (principal); R91.8 Other nonspecific abnormal finding of lung field

== ENCOUNTER → 2020-03-31 | Outpatient (CLI) | payer MEDICARE ==
[~2020-03-31] MED LIST changes: +LIDOCAINE 1% MDV 20ML VIAL As Ordered ONE
[2020-03-31 11:50] VITALS: BP 120/65
--- NOTE | 2020-04-08 14:23 | REP ---
SINGLE VIEW CHEST HISTORY: Right lung biopsy. FINDINGS: Single PA view of the chest was performed and compared to prior exam of the same day. The patient had CT-guided biopsy of a right lung nodule earlier today. Focal infiltrative opacity in the right upper lobe remains stable, representing post biopsy hemorrhage adjacent to the nodule. A miniscule right apical pneumothorax is not felt to be clinically significant. The remainder of the study is unchanged. MTDD
--- NOTE | 2020-04-08 14:23 | REP ---
CT GUIDED LUNG BIOPSY This procedure was performed by AMALIA Aly, under the direct supervision of Dr. Norton. The risks and benefits of the procedure were explained to the patient and an informed consent was obtained both verbally and written. Directly prior to the start of the procedure, a formal time-out was completed in the procedure room. Using CT guidance, the right upper lobe lung mass was localized. The skin was prepped and draped in a sterile fashion. Approximately 5 mL of 1% Lidocaine was used as a local anesthetic. A small skin briseyda was made and through that skin briseyda, a 20\19\20 gauge coaxial needle biopsy system was inserted and advanced into the nodule with CT guidance. After the first biopsy was obtained, the patient coughed up quite a bit of blood, a second biopsy was taken, and the patient coughed up even more blood. After the second biopsy was taken, the patient felt that they needed to stop the procedure because they could not breathe properly. A post biopsy CT scan showed a small pneumothorax. Two core biopsy samples were sent to the lab for further analysis. Serial chest x-rays were completed in the IR department while the patient convalesced. After the appropriate amount of monitored convalescence, the patient was discharged from the department. This has been dictated by AMALIA Aly with Dr. Norton. CAMILA
--- NOTE | 2020-04-08 14:25 | REP ---
SINGLE VIEW CHEST HISTORY: Right lung biopsy. TECHNIQUE: Single PA view of the chest was performed and compared to prior study of 09/10/2019. FINDINGS: There are underlying moderate chronic fibrotic changes bilaterally. New ill- defined opacity in the right upper lobe represents post biopsy hemorrhage at the site of todays CT guided lung biopsy. The ill-defined opacity encompasses an area approximately 7 cm in greatest diameter. There is a tiny right apical pneumothorax. Heart and mediastinum are unchanged as is the left dual-lead pacemaker. Follow-up will be performed. DD: CAMILA
== END ==
LOC: M IRPRO 07:52
PROVIDERS: ATTEND Internal Medicine Pulmonary Disease
DX: C34.11 Malignant neoplasm of upper lobe, right bronchus or lung (principal)

== ENCOUNTER → 2020-04-13 | Outpatient (REF) | payer MEDICARE ==
[~2020-04-13] MED LIST changes: -LIDOCAINE 1% MDV 20ML VIAL As Ordered ONE
[2020-04-13 17:01] LABS: APPEARANCE, URINE CLEAR (CLEAR); BACTERIA, URINE AUTO NEGATIVE (NEGATIVE); BILIRUBIN, URINE AUTO NEGATIVE (NEGATIVE); BLOOD, URINE BLOOD NEGATIVE (NEGATIVE); COLOR, URINE STRAW (YELLOW); GLUCOSE, URINE (UA) AUTO NEGATIVE (NEGATIVE); KETONE, URINE AUTO NEGATIVE (NEGATIVE); LEUKOCYTE ESTERASE, URINE AUTO NEGATIVE (NEGATIVE); NITRITE, URINE AUTO NEGATIVE (NEGATIVE); PROTEIN, URINE AUTO NEGATIVE (NEGATIVE); RBC, URINE AUTO 1 /HPF (0-3); SPECIFIC GRAVITY URINE AUTO 1.003 (1.002-1.035); SQUAMOUS EPITHELIAL CELL UR AU 0 /HPF (0-6); UROBILINOGEN, URINE AUTO 0.2 mg/dL (0.0-2.0); WBC, URINE AUTO 1 /HPF (0-3)
[2020-04-13 17:19] LABS: BLOOD UREA NITROGEN 13 MG/DL (7-18); CARBON DIOXIDE LEVEL 32 MEQ/L (21-32); CHLORIDE LEVEL 105 MEQ/L (98-107); CREATININE FOR GFR 0.96 MG/DL (0.70-1.30); GLOMERULAR FILTRATION RATE > 60.0 (>42); GLUCOSE, FASTING 82 MG/DL (70-100); POTASSIUM SERUM 5.4 MEQ/L (3.5-5.1); SODIUM LEVEL 141 MEQ/L (136-145)
[2020-04-15 23:08] LABS: PSA TOTAL 1.3 ng/mL (0.0-4.0)
== END ==
LOC: M SFHCADAM 14:57
PROVIDERS: ATTEND Physician Assistant Medical
DX: R30.0 Dysuria (principal); R35.0 Frequency of micturition; Z79.899 Other long term (current) drug therapy
CPT/HCPCS: 80048; 81001; 81002; 83036; 84154; 87086; G0463

== ENCOUNTER → 2020-05-13 | Outpatient (REF) | payer MEDICARE ==
[2020-05-13 17:43] LABS: APPEARANCE, URINE HAZY (CLEAR); BACTERIA, URINE AUTO NEGATIVE (NEGATIVE); BILIRUBIN, URINE AUTO NEGATIVE (NEGATIVE); BLOOD, URINE BLOOD NEGATIVE (NEGATIVE); COLOR, URINE YELLOW (YELLOW); GLUCOSE, URINE (UA) AUTO 1+ mg/dL (NEGATIVE); KETONE, URINE AUTO NEGATIVE (NEGATIVE); LEUKOCYTE ESTERASE, URINE AUTO 1+ (NEGATIVE); MUCUS, URINE SMALL (NEGATIVE); NITRITE, URINE AUTO NEGATIVE (NEGATIVE); PROTEIN, URINE AUTO NEGATIVE (NEGATIVE); RBC, URINE AUTO 1 /HPF (0-3); SPECIFIC GRAVITY URINE AUTO 1.013 (1.002-1.035); SQUAMOUS EPITHELIAL CELL UR AU 1 /HPF (0-6); UROBILINOGEN, URINE AUTO 0.2 mg/dL (0.0-2.0); WBC, URINE AUTO 15 /HPF (0-3)
== END ==
LOC: M SMT 16:45
PROVIDERS: ATTEND Urology
DX: R31.29 Other microscopic hematuria (principal)
CPT/HCPCS: 51798; 81001; 81002; 87086; G0463

== ENCOUNTER → 2020-06-05 | Outpatient (CLI) | payer MEDICARE ==
[~2020-06-05] MED LIST changes: +LIDOCAINE 1% MDV 20ML VIAL As Ordered ONE; +MIDAZOLAM INJ 2MG/2ML VIAL (J2250 PER 1MG) As Ordered ONE; +ceFAZolin 2 GM/D5W 50 ML IV BAG (J0690 PER 500MG) As Ordered ONE; +diphenhydrAMINE 50MG/ML VIAL (J1200) As Ordered ONE; +fentaNYL 100 MCG/2 ML INJECTION (J3010) As Ordered ONE
--- NOTE | 2020-06-05 09:13 | IRHP ---
[facility] IR Pre-Procedure H & P General Date of Service: Jun 05, 2020 Procedure: Same Day Surgery Interval History and Physical I have seen the patient and reviewed last H & P performed within 30 days. There is no significant interval change. History of Present Illness Chief Complaint The patient is a 74-year-old male admitted with a reason for visit of Lt Lung Ca. PRE-PROCEDURE DIAGNOSIS:lung cancer HEART: normal rate. LUNGS: normal breathing at rest. ASA Classification ASA Classification: III-Severe systemic dis. Mallampati Score: II NPO: Yes Problems with prior sedation: No Obstructive Sleep Apnea: No Plan moderate sedation Allergies Coded Allergies: PERFUMES (Unverified Allergy, Unknown, 11/03/16) aspirin (Verified Allergy, Unknown, 05/05/19) Contrast Media (Verified Adverse Reaction, Severe, sharp pain in arms and chest, 02/05/18) Home Medications Scheduled Budesonide/Formoterol (Symbicort 80-4.5 Mcg Inhaler), 2 PUFF INH BID, (Reported) Digoxin (Digoxin), 250 MCG PO DAILY, (Reported) Guaifenesin (Mucinex), 1 TAB PO BID, (Reported) Metoprolol Tartrate (Metoprolol Tartrate), 12.5 MG PO BID, (Reported) Multivitamin (Multivitamins), 1 CAP PO DAILY, (Reported) Omeprazole (Omeprazole), 20 MG PO DAILY, (Reported) Rivaroxaban (Xarelto), 20 MG PO DAILY, (Reported) Salmeterol/Fluticasone (Advair 250-50 Diskus), 1 PUFF INH BID, (Reported) Simvastatin (Simvastatin), 20 MG PO QHS, (Reported) Tamsulosin Hcl (Tamsulosin HCl), 0.4 MG PO QHS, (Reported) Scheduled PRN Albuterol Sulfate (Proair Hfa), 2 PUFF INH Q4H PRN for SHORTNESS OF BREATH, (Reported) Albuterol Sulfate (Albuterol Sulfate), 2.5 MG INH Q2HP PRN for SOB/WHEEZING VS, I&O, 24H, Fishbone Vital Signs/I&O Vital Signs Date Time Temp Pulse Resp B/P (MAP) Pulse Ox O2 Delivery O2 Flow Rate FiO2 06/05/20 08:42 98.4 68 16 96 Room Air JUNG CREWS MD Jun 05, 2020 09:13
--- NOTE | 2020-06-05 12:20 | POST-OPPD ---
Postoperative Procedure Note Date Of Procedure: Jun 05, 2020 Time Of Procedure: 12:18 IR ultrasound and fluoroscopy guided port placement IR Ultrasound of the neck. IR Moderate sedation. Clinical indication: Lung cancer. Physician: Dr. Gutierrez. Procedure: The patient was advised of the benefits, risks, and alternatives of the procedure and informed consent was obtained. A time-out was performed with verification of the patient's name, MRN, site of procedure and type of procedure to be performed. The patient was positioned in the supine position on the angiographic table. The site was prepped and draped in the usual sterile fashion. Moderate sedation was performed by the physician including the presence of an independent trained RN who assisted and monitored the patient's level of consciousness and physiologic status. Following the administration of fentanyl and Versed , the physician spent 45 minutes of continuous face to face time with the patient. Ultrasound of the neck reveals a patent and compressible right internal jugular vein. A telephone answering service operator radiograph reveals a left-sided cardiac device. The neck and anterior chest wall were anesthetized with lidocaine. The right internal jugular vein was accessed using a microintroducer needle under ultrasound guidance, via a lateral approach. An 018 wire was advanced into the superior vena cava, the needle was removed and a microsheath was placed. An Amplatz wire was then passed into the inferior vena cava. An incision at the internal jugular vein access site and anterior chest wall were made using a scalpel. An incision was made at the anterior chest wall. A small pocket was created using a combination of blunt and sharp dissection. A tunneling device was then used to pass the catheter from the pocket to the neck puncture site. An 8- [place] [employer] Smart power port was then positioned in the pocket. The catheter was then measured and cut. The introducer sheath was exchanged for a peel-away sheath. The catheter was passed through the peel-away sheath into the internal jugular vein and the peel- away sheath was removed. The port tip was positioned at the cavoatrial junction. The port was then accessed with a Jennings needle. The port flushes and aspirates well. The puncture site in the neck was closed. The chest wall incision was then closed with 2-0 Vicryl and 4-0 Monocryl. Glue and Steri- Strips were applied. A sterile dressing was then applied. The patient tolerated the procedure well and was returned to the PRU in stable condition. Estimated blood loss: <5 ml. Complications: None. Conclusion: 1. Successful placement of an 8-[place] Smart power port via the right internal jugular vein. The port is ready for immediate use. 2. Patient to follow up in IR clinic in 2 weeks. Thank you for this referral. JUNG GUTIERREZ MD Jun 05, 2020 12:19
[2020-06-05 12:23] VITALS: BP 120/60
== END ==
LOC: M IRPRO 08:13
PROVIDERS: ATTEND Radiology Diagnostic Radiology
DX: C34.90 Malignant neoplasm of unspecified part of unspecified bronchus or lung (principal); Z79.899 Other long term (current) drug therapy; Z88.6 Allergy status to analgesic agent; Z91.041 Radiographic dye allergy status; Z91.09 Other allergy status, other than to drugs and biological substances
CPT/HCPCS: 36561; 99152; 99153; C1769; C1788; C1894; J0690; J1642; J1644; J2250; J3010

== ENCOUNTER → 2020-06-25 | Outpatient (REF) | payer MEDICARE ==
[~2020-06-25] MED LIST changes: -LIDOCAINE 1% MDV 20ML VIAL As Ordered ONE; -MIDAZOLAM INJ 2MG/2ML VIAL (J2250 PER 1MG) As Ordered ONE; +MULT-90 PO; -ceFAZolin 2 GM/D5W 50 ML IV BAG (J0690 PER 500MG) As Ordered ONE; -diphenhydrAMINE 50MG/ML VIAL (J1200) As Ordered ONE; -fentaNYL 100 MCG/2 ML INJECTION (J3010) As Ordered ONE
[2020-06-25 13:13] LABS: HEMOGLOBIN A1c 6.2 %
[2020-06-25 13:22] LABS: BLOOD UREA NITROGEN 20 MG/DL (7-18); CALCIUM LEVEL 9.4 MG/DL (8.8-10.2); CARBON DIOXIDE LEVEL 32 MEQ/L (21-32); CHLORIDE LEVEL 105 MEQ/L (98-107); CREATININE FOR GFR 1.13 MG/DL (0.70-1.30); GLOMERULAR FILTRATION RATE > 60.0 (>42); GLUCOSE, FASTING 94 MG/DL (70-100); POTASSIUM SERUM 4.8 MEQ/L (3.5-5.1); SODIUM LEVEL 140 MEQ/L (136-145)
== END ==
LOC: M SFHCADAM 08:37
PROVIDERS: ATTEND Physician Assistant Medical
DX: E11.9 Type 2 diabetes mellitus without complications (principal)

== ENCOUNTER → 2020-06-30 | Outpatient (CLI) | payer MEDICARE ==
--- NOTE | 2020-06-30 16:15 | REP ---
INDICATION: GROSS HEMATURIA COMPARISON: 09/10/2019 TECHNIQUE: Axial noncontrast images from the lung bases to the pubic symphysis with coronal and sagittal reformations. This CT examination was performed using the following dose reduction techniques: Automated exposure control, adjustment of mA and/or kv according to the patient's size, and use of iterative reconstruction technique. FINDINGS: Right kidney includes 2 mm nonobstructing calculus and no significant perinephric stranding, hydroureteronephrosis or obstructing ureteral calculus. Left kidney includes 1 mm and 3 mm nonobstructing renal calculi along with 1.5 cm hypodensity suggesting cyst and mild chronic perinephric stranding without hydroureteronephrosis or obstructing ureteral calculus. Bladder is unremarkable. Prostate gland is mildly enlarged. Liver, spleen, pancreas, and bilateral adrenal glands are essentially normal. Splenic calcifications suggest prior granulomatous disease. Gallbladder demonstrates layering gallstones without evidence for acute cholecystitis. The enteric system is without obstruction or acute inflammatory process. Normal terminal ileum and appendix are identified in the right lower quadrant. Scattered sigmoid diverticula noted without acute diverticulitis. Pelvis demonstrates normal bladder and mild prostatomegaly. No ascites. No free air. No adenopathy. Atherosclerotic changes to the aorta and vasculature noted without aneurysm. Small fat containing periumbilical hernia identified. Musculoskeletal structures demonstrate age-related degenerative changes without acute osseous abnormality. Lung bases demonstrate extensive fibrosis. IMPRESSION: 1. Small bilateral nonobstructing nephroliths and possible 1.5 cm left renal cyst. No hydronephrosis or obstructing ureteral calculi. 2. Prostatomegaly with mild mass effects on the base of the bladder 3. Cholelithiasis without acute cholecystitis 4. Few scattered diverticula without acute diverticulitis 5. Fibrosis at the lung bases <Electronically signed by Shayne Correia > 06/30/20 [id number]
== END ==
LOC: M RAD 15:30
PROVIDERS: ATTEND Urology
DX: R31.0 Gross hematuria (principal); N20.0 Calculus of kidney

== ENCOUNTER → 2020-07-07 | Outpatient (POV) | payer MEDICARE ==
--- NOTE | 2020-07-13 11:48 | IRPN ---
[facility] IR Progress Note IR Progress Note DATE: Jul 07, 2020 Patient agreed to this telephone follow-up. Duration of call 5 minutes. FOLLOW-UP: Patient status post port placement. Patient denies any fevers, chills, pain at site or discharge. Patient states port was used without any issues. ON EXAMINATION: No video on patient side. IMPRESSION: Status post port placement, patient doing well. No further follow-up scheduled unless initiated by patient and/or referring provider. Thank you for this referral Allergies Coded Allergies: PERFUMES (Unverified Allergy, Unknown, 11/03/16) aspirin (Verified Allergy, Unknown, 05/05/19) Contrast Media (Verified Adverse Reaction, Severe, sharp pain in arms and chest, 02/05/18) JUNG CREWS MD Jul 13, 2020 11:48
== END ==
LOC: M TMIRPOV 09:06
PROVIDERS: ATTEND Radiology Diagnostic Radiology
DX: Z45.2 Encounter for adjustment and management of vascular access device (principal)

== ENCOUNTER → 2020-10-25 | Outpatient (CLI) | payer MEDICARE ==
[~2020-10-25] MED LIST changes: +LIDO1KIT9 EXT
== END ==
LOC: M LABSMTC 11:19
PROVIDERS: ATTEND Pediatrics
DX: Z20.822 Contact with and (suspected) exposure to COVID-19 (principal)

== ENCOUNTER → 2020-10-26 | Outpatient (CLI) | payer MEDICARE ==
--- NOTE | 2020-10-26 17:09 | REP ---
INDICATION: RESTAGING LUNG CANCER. Status post prior left upper lobectomy. Recent diagnosis squamous cell carcinoma right lung nodule. Bilateral lung nodules. COMPARISON: Comparison PET-CT study March 10, 2020.. TECHNIQUE: Fifty-four minutes following the intravenous injection of a 16.2 to mCi dose of F-18 FDG, three-dimensional PET scintigraphy is acquired from the skull base to the proximal thighs. Triplanar noncontrast CT scanning is acquired through the same anatomic range for attenuation correction, and image registration with scan parameters optimized to minimize radiation exposure to the patient. PET scintigraphy and CT datasets were fused and displayed on a workstation with multiplanar and projection display capability. FINDINGS: Head and neck soft tissues are unremarkable. There are 1 or 2 normal size non hypermetabolic mediastinal lymph nodes. The recently biopsied right upper lobe pulmonary nodule is hypermetabolic and appears larger than on the prior study, maximum standard uptake value 11.81. There is hypermetabolic nodular density or infiltrate posteriorly in the right mid lung field with maximum standard uptake value 6.07 which is new. There is right hilar hypermetabolic susan uptake, maximum SUV value 4.94. There is right infrahilar and subcarinal hypermetabolic uptake, 4.73 and 5.18 respectively. There is a nodule in the left base anteriorly which shows maximum standard uptake value 4.03. Hypermetabolic infiltrates are seen in the lung bases bilaterally. In the abdomen and pelvis air is no abnormal hypermetabolic uptake. No abnormal adrenal or skeletal uptake is seen.. IMPRESSION: The right upper lobe nodule is more hypermetabolic and appears a little larger. There is a new right hilar and infrahilar and subcarinal hypermetabolic uptake suggesting progression as well. Left lung hypermetabolic nodules again seen and bilateral lower lung zone infiltrates are noted. <Electronically signed by Rosendo Spaulding > 10/26/20 [id number]
== END ==
LOC: M PLARAD 13:19
PROVIDERS: ATTEND Internal Medicine Hematology & Oncology
DX: C34.81 Malignant neoplasm of overlapping sites of right bronchus and lung (principal); C34.82 Malignant neoplasm of overlapping sites of left bronchus and lung; R59.9 Enlarged lymph nodes, unspecified
CPT/HCPCS: 78815; A9552

== ENCOUNTER → 2020-11-25 | Outpatient (REF) | payer MEDICARE ==
[~2020-11-25] MED LIST changes: +COVI100V IM; +DECA4TAB PO; +PROC10TA4 PO
[2020-11-25 15:38] LABS: BASO % 0.2 % (0.0-1.0); EOS # 0.1 10^3/uL (0.0-0.5); EOS % 1.5 % (0.0-3.0); HEMATOCRIT 47.6 % (42.0-52.0); HEMOGLOBIN 15.5 g/dl (13.5-17.5); LYMPH # 0.3 10^3/uL (1.5-5.0); LYMPH % 4.9 % (24.0-44.0); MEAN CORPUSCULAR HEMOGLOBIN 30.9 pg (27.0-33.0); MEAN CORPUSCULAR HGB CONC 32.6 g/dl (32.0-36.5); MONO # 0.6 10^3/uL (0.0-0.8); MONO % 10.5 % (2.0-8.0); NEUTROPHILS # 4.4 10^3/uL (1.5-8.5); NEUTROPHILS % 82.1 % (36.0-66.0); PLATELET COUNT, AUTOMATED 114 10^3/uL (150-450); RED BLOOD COUNT 5.01 10^6/uL (4.30-6.10); WHITE BLOOD COUNT 5.3 10^3/uL (4.0-10.0)
[2020-11-25 15:57] LABS: ALBUMIN 2.9 GM/DL (3.2-5.2); ALT/SGPT 27 U/L (12-78); BILIRUBIN,TOTAL 0.9 MG/DL (0.2-1.0); BLOOD UREA NITROGEN 22 MG/DL (7-18); CALCIUM LEVEL 9.2 MG/DL (8.8-10.2); CARBON DIOXIDE LEVEL 27 MEQ/L (21-32); CHLORIDE LEVEL 100 MEQ/L (98-107); CREATININE FOR GFR 1.03 MG/DL (0.70-1.30); GLOMERULAR FILTRATION RATE > 60.0 (>42); GLUCOSE, FASTING 246 MG/DL (70-100); POTASSIUM SERUM 5.4 MEQ/L (3.5-5.1); SODIUM LEVEL 136 MEQ/L (136-145); TOTAL PROTEIN 6.2 GM/DL (6.4-8.2)
== END ==
LOC: M LABDRWAD 15:13
PROVIDERS: ATTEND Internal Medicine Hematology & Oncology
DX: C34.90 Malignant neoplasm of unspecified part of unspecified bronchus or lung (principal); Z88.8 Allergy status to other drugs, medicaments and biological substances; Z91.041 Radiographic dye allergy status

== ENCOUNTER → 2020-12-28 | Outpatient (REF) | payer MEDICARE ==
[~2020-12-28] MED LIST changes: +OMEP40CA4 PO; -OMEP40CA97 PO
[2020-12-28 13:34] LABS: BASO # 0.1 10^3/uL (0.0-0.2); BASO % 1.1 % (0.0-1.0); EOS # 0.1 10^3/uL (0.0-0.5); EOS % 0.8 % (0.0-3.0); HEMATOCRIT 42.4 % (42.0-52.0); HEMOGLOBIN 13.9 g/dl (13.5-17.5); LYMPH # 0.8 10^3/uL (1.5-5.0); LYMPH % 12.3 % (24.0-44.0); MEAN CORPUSCULAR HEMOGLOBIN 31.6 pg (27.0-33.0); MEAN CORPUSCULAR HGB CONC 32.8 g/dl (32.0-36.5); MEAN CORPUSCULAR VOLUME 96.4 fl (80.0-96.0); MONO # 0.8 10^3/uL (0.0-0.8); MONO % 12.7 % (2.0-8.0); NEUTROPHILS # 4.8 10^3/uL (1.5-8.5); NEUTROPHILS % 72.6 % (36.0-66.0); PLATELET COUNT, AUTOMATED 339 10^3/uL (150-450); WHITE BLOOD COUNT 6.6 10^3/uL (4.0-10.0)
[2020-12-28 15:17] LABS: ALBUMIN 3.2 GM/DL (3.2-5.2); ALT/SGPT 16 U/L (12-78); BLOOD UREA NITROGEN 14 MG/DL (7-18); CALCIUM LEVEL 9.4 MG/DL (8.8-10.2); CARBON DIOXIDE LEVEL 26 MEQ/L (21-32); CHLORIDE LEVEL 101 MEQ/L (98-107); CREATININE FOR GFR 0.89 MG/DL (0.70-1.30); GLOMERULAR FILTRATION RATE > 60.0 (>42); GLUCOSE, FASTING 215 MG/DL (70-100); MAGNESIUM LEVEL 2.1 MG/DL (1.8-2.4); POTASSIUM SERUM 5.1 MEQ/L (3.5-5.1); SODIUM LEVEL 136 MEQ/L (136-145); TOTAL PROTEIN 6.7 GM/DL (6.4-8.2)
== END ==
LOC: M LABDRWAD 12:39
PROVIDERS: ATTEND Internal Medicine Hematology & Oncology
DX: C34.90 Malignant neoplasm of unspecified part of unspecified bronchus or lung (principal)

== ENCOUNTER → 2021-01-08 | Outpatient (REF) | payer MEDICARE ==
[~2021-01-08] MED LIST changes: +GABA-282 PO
[2021-01-08 13:15] LABS: HEMOGLOBIN A1c 7.5 %
== END ==
LOC: M SFHCADAM 08:36
PROVIDERS: ATTEND Physician Assistant Medical
DX: E11.9 Type 2 diabetes mellitus without complications (principal)

== ENCOUNTER → 2021-01-15 | Outpatient (CLI) | payer MEDICARE ==
--- NOTE | 2021-01-15 11:32 | REP ---
INDICATION: LUNG CA. COMPARISON: Multiple the latest 06/30/2020 TECHNIQUE: Noncontrast enhanced standard helical technique. FINDINGS: The liver and spleen are unchanged. Once again, there is cholelithiasis. The pancreas, adrenal glands, and kidneys are unchanged. Once again, there are small bilateral nonobstructing nephroliths. There is an unchanged tiny right renal cyst. The abdominal aorta and para-regions appear stable. Heavy calcific atheromatous plaque formation is again seen in the abdominal aorta. There is no significant change in appearance of the bowel loops or the mesenteries. There is no evidence of free fluid or free air. Bone window technique throughout the examination shows no significant change in appearance of the osseous structures. The bones are demineralized. There are spinal degenerative changes with degenerative changes seen involving the hips and sacroiliac joints. IMPRESSION: Stable appearing chronic changes as described above. <Electronically signed by Martínez Nelson > 01/15/21 [id number]
--- NOTE | 2021-01-15 11:42 | REP ---
INDICATION: LUNG CA COMPARISON: Multiple the latest 02/13/2020 TECHNIQUE: Standard helical technique without intravenous contrast administration FINDINGS: There are multiple mediastinal lymph nodes which have increased in size compared to the prior exam with the largest measuring 1.2 cm in the aortic pulmonary window. This node previously measured 8 mm. There is a 1.4 cm sized subcarinal lymph node which previously measured 8 mm both short axis dimensions. There is no evidence of michell hilar adenopathy. There are no pleural or pericardial effusions. There is no significant change in appearance of the imaged upper abdomen. Evaluation of the lung florentino shows a significant increase in size in the spiculated right upper lobe nodule which today measures approximately 2 x 2.4 cm previously 1.2 x 0.8 cm. A metallic radiodensity is now seen adjacent to the spiculated nodule consistent with a fiducial marker. The additional spiculated nodule seen previously in the anterior segment of the right upper lobe more anterior than the aforementioned appears unchanged. Marked an advanced chronic changes are again seen throughout the lung florentino with advanced honeycomb lung seen in the lung bases but also seen scattered about the lungs bilaterally. There is marked an advanced bronchiectasis of cylindrical, verrucoid, and saccular type. IMPRESSION: 1. Spiculated right upper lobe nodule increased in size as described above. 2. Marked and advanced chronic lung field changes as described above. 3. Adenopathy as described above.. <Electronically signed by Martínez Nelson > 01/15/21 [id number]
== END ==
LOC: M RAD 10:35
PROVIDERS: ATTEND Internal Medicine Hematology & Oncology
DX: C34.90 Malignant neoplasm of unspecified part of unspecified bronchus or lung (principal)

== ENCOUNTER → 2021-01-18 | Outpatient (REF) | payer MEDICARE ==
[2021-01-18 16:55] LABS: BASO # 0.1 10^3/uL (0.0-0.2); EOS # 0.1 10^3/uL (0.0-0.5); EOS % 1.2 % (0.0-3.0); HEMATOCRIT 34.5 % (42.0-52.0); HEMOGLOBIN 11.5 g/dl (13.5-17.5); LYMPH # 0.7 10^3/uL (1.5-5.0); LYMPH % 11.6 % (24.0-44.0); MEAN CORPUSCULAR HEMOGLOBIN 33.3 pg (27.0-33.0); MEAN CORPUSCULAR HGB CONC 33.3 g/dl (32.0-36.5); MONO # 0.7 10^3/uL (0.0-0.8); MONO % 11.5 % (2.0-8.0); NEUTROPHILS # 4.3 10^3/uL (1.5-8.5); NEUTROPHILS % 74.2 % (36.0-66.0); PLATELET COUNT, AUTOMATED 278 10^3/uL (150-450); RED BLOOD COUNT 3.45 10^6/uL (4.30-6.10); WHITE BLOOD COUNT 5.9 10^3/uL (4.0-10.0)
[2021-01-18 17:21] LABS: ALBUMIN 3.1 GM/DL (3.2-5.2); ALT/SGPT 17 U/L (12-78); BILIRUBIN,TOTAL 0.7 MG/DL (0.2-1.0); BLOOD UREA NITROGEN 15 MG/DL (7-18); CALCIUM LEVEL 9.2 MG/DL (8.8-10.2); CARBON DIOXIDE LEVEL 29 MEQ/L (21-32); CHLORIDE LEVEL 103 MEQ/L (98-107); CREATININE FOR GFR 0.88 MG/DL (0.70-1.30); GLOMERULAR FILTRATION RATE > 60.0 (>42); GLUCOSE, FASTING 193 MG/DL (70-100); POTASSIUM SERUM 4.5 MEQ/L (3.5-5.1); SODIUM LEVEL 138 MEQ/L (136-145); TOTAL PROTEIN 6.4 GM/DL (6.4-8.2)
== END ==
LOC: M LABDRWAD 16:14
PROVIDERS: ATTEND Internal Medicine Hematology & Oncology
DX: C34.90 Malignant neoplasm of unspecified part of unspecified bronchus or lung (principal)

== ENCOUNTER → 2021-02-03 | Outpatient (REF) | payer MEDICARE ==
[~2021-02-03] MED LIST changes: +ALBU83IN INH; +NEUR300C PO; +ONDA-83 PO; +VITMTA PO
[2021-02-03 17:45] LABS: BASO # 0.1 10^3/uL (0.0-0.2); BASO % 0.7 % (0.0-1.0); EOS # 0.2 10^3/uL (0.0-0.5); EOS % 2.1 % (0.0-3.0); HEMATOCRIT 41.2 % (42.0-52.0); HEMOGLOBIN 13.6 g/dl (13.5-17.5); LYMPH # 0.9 10^3/uL (1.5-5.0); LYMPH % 9.4 % (24.0-44.0); MEAN CORPUSCULAR HEMOGLOBIN 34.2 pg (27.0-33.0); MEAN CORPUSCULAR VOLUME 103.5 fl (80.0-96.0); MONO % 10.7 % (2.0-8.0); NEUTROPHILS # 7.2 10^3/uL (1.5-8.5); NEUTROPHILS % 76.7 % (36.0-66.0); PLATELET COUNT, AUTOMATED 263 10^3/uL (150-450); RED BLOOD COUNT 3.98 10^6/uL (4.30-6.10); WHITE BLOOD COUNT 9.4 10^3/uL (4.0-10.0)
[2021-02-03 18:09] LABS: ALBUMIN 3.2 GM/DL (3.2-5.2); ALT/SGPT 15 U/L (12-78); BILIRUBIN,TOTAL 1.1 MG/DL (0.2-1.0); BLOOD UREA NITROGEN 11 MG/DL (7-18); CALCIUM LEVEL 9.3 MG/DL (8.8-10.2); CARBON DIOXIDE LEVEL 30 MEQ/L (21-32); CHLORIDE LEVEL 99 MEQ/L (98-107); CREATININE FOR GFR 0.91 MG/DL (0.70-1.30); GLOMERULAR FILTRATION RATE > 60.0 (>42); GLUCOSE, FASTING 190 MG/DL (70-100); POTASSIUM SERUM 4.5 MEQ/L (3.5-5.1); SODIUM LEVEL 139 MEQ/L (136-145); TOTAL PROTEIN 6.6 GM/DL (6.4-8.2)
== END ==
LOC: M LABDRWAD 16:52
PROVIDERS: ATTEND Internal Medicine Hematology & Oncology
DX: I48.91 Unspecified atrial fibrillation (principal); C34.90 Malignant neoplasm of unspecified part of unspecified bronchus or lung; J44.9 Chronic obstructive pulmonary disease, unspecified

== ENCOUNTER 2021-02-16 18:30 | Inpatient (IN) | payer MEDICARE ==
[~2021-02-16] VITALS: Ht 177.8 cm; Wt 72.5 kg
[~2021-02-16 18:30] MED LIST changes: -ALBU83IN INH; -NEUR300C PO; -VITMTA PO
[2021-02-16 20:07] LABS: HEMATOCRIT 33.5 % (42.0-52.0); HEMOGLOBIN 11.7 g/dl (13.5-17.5); MEAN CORPUSCULAR HEMOGLOBIN 34.6 pg (27.0-33.0); MEAN CORPUSCULAR HGB CONC 34.9 g/dl (32.0-36.5); MEAN CORPUSCULAR VOLUME 99.1 fl (80.0-96.0); RED BLOOD COUNT 3.38 10^6/uL (4.30-6.10)
[2021-02-16 20:14] LABS: ALBUMIN 3.2 GM/DL (3.2-5.2); ALT/SGPT 15 U/L (12-78); BILIRUBIN,DIRECT 0.3 MG/DL (0.0-0.2); BLOOD UREA NITROGEN 23 MG/DL (7-18); C REACTIVE PROTEIN QUANTITATIV 3.03 MG/DL (0.00-0.30); CARBON DIOXIDE LEVEL 31 MEQ/L (21-32); CHLORIDE LEVEL 102 MEQ/L (98-107); CK-MB VALUE MASS 2.4 NG/ML (<3.6); CPK CREATINE PHOSPHOKINASE 46 U/L (39-308); CREATININE FOR GFR 0.82 MG/DL (0.70-1.30); GLOMERULAR FILTRATION RATE > 60.0 (>42); GLUCOSE, FASTING 129 MG/DL (70-100); MB/CK RELATIVE INDEX 5.22 (< OR =4); POTASSIUM SERUM 5.1 MEQ/L (3.5-5.1); SODIUM LEVEL 136 MEQ/L (136-145); THYROXINE (T4) 9.9 UG/DL (4.5-12.0); TOTAL PROTEIN 6.5 GM/DL (6.4-8.2); TROPONIN I < 0.02 NG/ML (< 0.10)
[2021-02-16 20:30] LABS: PLATELET COUNT, AUTOMATED 40 10^3/uL (150-450)
[2021-02-16 20:36] LABS: ATYPICAL LYMPH 1 % (0-5); EOSINOPHILS 1 % (0-3); LYMPHOCYTES 26 % (16-44); MONOCYTES 1 % (0-5); NEUTROPHILS 71 % (28-66); PLATELET ESTIMATE MARKED DECREASE (NORMAL)
[2021-02-16 20:41] LABS: ERYTHROCYTE SEDIMENTATION RATE 49 mm/hr (0-20)
--- NOTE | 2021-02-16 20:50 | REPVR ---
PROCEDURE INFORMATION: Exam: XR Chest Exam date and time: 02/16/2021 7:43 PM Age: 75 years old Clinical indication: Cough and dyspnea; Additional info: Dyspnea/cough TECHNIQUE: Imaging protocol: XR of the chest. Views: 1 view. COMPARISON: CT Chest without contrast 01/15/2021 11:18 AM FINDINGS: Tubes, catheters and devices: Left chest cardiac device. Right chest infusion port terminates at the cavoatrial junction. Lungs: There is basilar predominant chronic interstitial disease. Pleural spaces: Unremarkable. No pleural effusion. No pneumothorax. Heart/Mediastinum: Cardiac silhouette is magnified by portable technique. Bones/joints: Osteopenia. There are degenerative changes involving the spine. IMPRESSION: 1. Basilar predominant chronic interstitial disease compatible with pulmonary fibrosis. 2. Superimposed acute infiltrate is not reliably excluded. Electronically signed by: Michele Warren On 02/16/2021 20:49:39 PM
[2021-02-16 21:11] LABS: RSV AMPLIFICATION NEGATIVE (NEGATIVE)
[2021-02-16] MEDS ORDERED: ALBU83IN INH (22:16)
[2021-02-16] MEDS ORDERED: NEUR300C PO (22:16)
[2021-02-16] MEDS ORDERED: SYMB16INH INH (22:16)
[2021-02-16] MEDS ORDERED: VITMTA PO (22:16)
[2021-02-16] MEDS ORDERED: MUCI600T31 PO (22:16)
[2021-02-16] MEDS ORDERED: MOM 30ML SUSPENSION UDC PO PRN (22:20)
[2021-02-16] MEDS ORDERED: HOME MED LIST COMPLETE! XX SCH (22:20)
[2021-02-16] MEDS ORDERED: MAALOX 30 ML SUSP *UDC PO PRN (22:20)
[2021-02-16] MEDS ORDERED: ALBUTEROL 90 MCG/ACT 8GM HFA INHALER INH PRN (22:30)
[2021-02-16] MEDS ORDERED: guaiFENesin ER 600 MG TAB PO PRN (22:30)
[2021-02-16] MEDS ORDERED: ALBUTEROL SULFATE 2.5 MG/0.5 ML INH NEB SOLN INH PRN (22:30)
--- NOTE | 2021-02-16 22:52 | HPEPDOC ---
[facility] Medical History & Physical Date of Admission Feb 16, 2021 Date of Service: Feb 16, 2021 Attending Physician: SIDDHARTHA HARPER MD History and Physical CHIEF COMPLAINT: [75 y/o male c/o nosebleeds on and off x3 days] HISTORY OF PRESENT ILLNESS: [This is a 75 y/o male with a pmh of a-fib s/p pacemaker placement on xarelto, hld, htn, copd, pulmonary fibrosis, recurrent lung ca s/p left upper lobectomy currently on chemo who reports to our ED on 02/16 with a cc of recurrent nosebleeds for the past 3 days. Patient states that for the past 3 days, he has had on and off mild nosebleeds that have been self limiting. Patient states that his most severe nose bleed was today and prompted him to come in. Patient states that he was worried about having COVID because his grandkids were recently diagnosed and he has been around them often. Patient states that along with his nosebleeds, he has been having increased weakness and dizziness, however this has been worsening over several weeks. Patient sta [place] that these symptoms have caused him to fall multiple times, and states that he believes he hit his head in one fall that happened several weeks ago. Patient states as well that these symptoms have made it more difficult for him to perform his ADL's as he lives alone. Patient admits to some dysuria. Patient, at the time of my exam, denies headaches, fevers, chills, chest pain, sob, abd pain, n/v/d/c, lower leg edema.] PAST MEDICAL HISTORY: 1. [See HPI PAST SURGICAL HISTORY: 1. [Unspec. sinus surgery]. 2. [Tonsillectomy]. 3. [Pacemaker placement 4. Left upper lobectomy 5. ESWL 6. Discectomy]. SOCIAL HISTORY: Resides in: [Home alone] Tobacco use:[Denies] ETOH: [Denies] Illicit drug use: [Denies] FAMILY HISTORY: Father - DM, carcinomas, copd Mother - HTN ALLERGIES: Please see below. REVIEW OF SYSTEMS: CONSTITUTIONAL: [See HPI]. HEENT: [Denies uri sx]. CARDIOVASCULAR: [See HPI]. RESPIRATORY: [See HPI]. GASTROINTESTINAL: [See HPI]. GENITOURINARY: [See HPI]. SKIN: [Admits to petechial rash - "started several months ago"]. MUSCULOSKELETAL: [Denies acute joint/back pain]. NEUROLOGICAL: [Admits to lower leg paresthesias]. ENDOCRINE: [Denies hx of DM]. HEMATOLOGIC/LYMPHATIC: [See HPI]. HOME MEDICATIONS: Please see below. PHYSICAL EXAMINATION: VITAL SIGNS: Please see below. GENERAL APPEARANCE: [This is a 75 y/o male who is alert and oriented to all questioning. He does not appear to be in any acute distress]. HEENT: [No mass or lesion. EOMI. No scleral icterus. There is crusted blood on patients upper lips and nares. Nares patent. oral mucosa moist.]. CARDIOVASCULAR: [Regular rate, rhythm. No murmurs, rubs, gallops]. LUNGS: [Good air flow b/l. Crackles appreciated at RLL]. ABDOMEN: [Soft, nontender]. MUSCULOSKELETAL: [No joint deformity]. EXTREMITIES: [No pedal edema. Petechial rash noted to all 4 extremities. Pulses intact.]. NEUROLOGICAL: [Speech clear. A+Ox3. Patient moves all fours freely. No focal deficits]. PSYCHIATRIC: [Mood and affect appear appropriate.]. LABORATORY DATA: See below. IMAGING: [CXR: FINDINGS: Tubes, catheters and devices: Left chest cardiac device. Right chest infusion port terminates at the cavoatrial junction. Lungs: There is basilar predominant chronic interstitial disease. Pleural spaces: Unremarkable. No pleural effusion. No pneumothorax. Heart/Mediastinum: Cardiac silhouette is magnified by portable technique. Bones/joints: Osteopenia. There are degenerative changes involving the spine. IMPRESSION: 1. Basilar predominant chronic interstitial disease compatible with pulmonary fibrosis. 2. Superimposed acute infiltrate is not reliably excluded. ] MICROBIOLOGY: Please see below. ASSESSMENT: [This is a 75 y/o male with a pmh of a-fib s/p pacemaker placement on xarelto, hld, htn, copd, pulmonary fibrosis, recurrent lung ca s/p left upper lobectomy currently on chemo who reports to our ED on 02/16 with a cc of recurrent nosebleeds for the past 3 days. Patient states that along with his nosebleeds, he has been having increased weakness and dizziness, however this has been worsening over several weeks. Patient states that these symptoms have caused him to fall multiple times, and states that he believes he hit his head in one fall that happened several weeks ago]. . PLAN: 1. [Pancytopenia - WBC - 3, RBC 3.3, HB 11.7, Plt 40 - Chemo induced - Discussed case with Dr. Knott, medical oncology, who states that these cell counts are not indications for colony stimulating factor medications, and feels that nosebleeds are more likely being caused by xarelto. Recommends observation and serial CBC. - Will hold xarelto - Daily cbc - Neutropenic precautions/diet - Will r/o infection with chest ct as cxr is nonspecific in him, and ua w culture - Admit to pcu for w/u and tx 2. Weakness/dizziness/recurrent falls - Likely secondary to deconditioning from chemo, his slight anemia, and his chemo induced peripheral neuropathy. Less likely secondary to infxn - Recommend pt/ot - continue gabapentin for neuropathy 3. COPD - Patient not in acute exacerbation - Will continue supplemental o2 as patient wears 2L at home - Continue at home inhalers - continue guaifenesin 4. A-fib - Patient currently rate controlled and paced - will continue digoxin, metoprolol - holding xarelto, as stated 5. BPH - continue flomax 6. GERD - continue omeprazole 7. HLD - continue simvastatin DVT prophylaxis - mechanical]. Vital Signs Vital Signs Date Time Temp Pulse Resp B/P (MAP) Pulse Ox O2 Delivery O2 Flow Rate FiO2 02/16/21 20:45 60 18 113/63 (80) 99 Room Air 02/16/21 18:42 98.3 Laboratory Data Labs 24H Laboratory Tests 2 02/16/21 19:16: Neutrophils (%) (Auto) , Nucleated Red Blood Cells % (auto) 0.0, Neutrophils 71H, Lymphocytes (Manual) 26, Monocytes (Manual) 1, Eosinophils (Manual) 1, Atypical Lymphocytes 1, Platelet Estimate MARKED DECREASE, Immature Platelet Fraction 3.2, Erythrocyte Sedimentation Rate 49H, Anion Gap 3L, Glomerular Filtration Rate > 60.0, Calcium Level 9.0, Total Bilirubin 1.0, Direct Bilirubin 0.3H, Aspartate Amino Transf (AST/SGOT) 19, Alanine Aminotransferase (ALT/SGPT) 15, Alkaline Phosphatase 96, Total Creatine Kinase 46, Creatine Kinase MB 2.4, Creatine Kinase MB Relative Index 5.22H, Troponin I < 0.02, C-Reactive Protein, Quantitative 3.03H, Total Protein 6.5, Albumin 3.2, Albumin/Globulin Ratio 1.0, Thyroid Stimulating Hormone (TSH) 2.170, Thyroxine (T4) 9.9 02/16/21 20:22: Coronavirus (COVID-19)(PCR) NEGATIVE, Influenza Type A (RT-PCR) NEGATIVE, Influenza Type B (RT-PCR) NEGATIVE, Respiratory Syncytial Virus (PCR) NEGATIVE CBC/BMP Laboratory Tests 02/16/21 19:16 Home Medications Scheduled Budesonide/Formoterol (Symbicort 160-4.5 Mcg Inhaler) 6 Gm Hfa.aer.ad, 2 PUFF INH BID Digoxin (Digoxin) 250 Mcg Tablet, 250 MCG PO QHS Gabapentin (Neurontin) 300 Mg Capsule, 300 MG PO QHS Metoprolol Tartrate (Metoprolol Tartrate) 25 Mg Tab, 12.5 MG PO BID Multivitamins (Thera M Plus Tablet) 1 Each Tablet, 1 TAB PO DAILY Omeprazole (Omeprazole) 20 Mg Cap, 20 MG PO BID Rivaroxaban (Xarelto) 20 Mg Tab, 20 MG PO DAILY Salmeterol/Fluticasone (Advair 250-50 Diskus) 1 Each Blst.w.dev, 1 PUFF INH BID Simvastatin (Simvastatin) 20 Mg Tab, 20 MG PO QHS Tamsulosin Hcl (Tamsulosin HCl) 0.4 Mg Capsule, 0.4 MG PO QHS Scheduled PRN Albuterol Sulf (Albuterol Sulfate) 2.5 Mg/3 Ml Vial.neb, 2.5 MG INH QID PRN for SHORTNESS OF BREATH Albuterol Sulfate (Proair Hfa) 108 Mcg/Act Aer, 2 PUFF INH Q4H PRN for SHORTNESS OF BREATH Guaifenesin (Mucinex) 600 Mg Tab.er.12h, 600 MG PO BID PRN for CONGESTION Allergies Coded Allergies: PERFUMES (Unverified Allergy, Unknown, 11/03/16) aspirin (Verified Allergy, Unknown, 05/05/19) Contrast Media (Verified Adverse Reaction, Severe, sharp pain in arms and chest, 02/05/18) A-FIB/CHADSVASC A-FIB History Current/History of A-Fib/PAF?: Yes Current PO Anticoag Therapy: No (epistaxis) MILES TREVIÑO Feb 16, 2021 22:52
[2021-02-16] MEDS: METOPROLOL TART 12.5 MG PER 1/2 TAB PO SCH (23:23)
[2021-02-16] MEDS: DIGOXIN 0.25 MG TAB PO SCH (23:23)
--- NOTE | 2021-02-16 23:39 | REPVR ---
PROCEDURE INFORMATION: Exam: CT Chest Without Contrast; Diagnostic Exam date and time: 02/16/2021 11:09 PM Age: 75 years old Clinical indication: Pain; Chest pressure; Additional info: R/O pna TECHNIQUE: Imaging protocol: Diagnostic computed tomography of the chest without contrast. 3D rendering (Not supervised by radiologist): MIP and/or 3D reconstructed images were created by the technologist. Radiation optimization: All CT scans at this facility use at least one of these dose optimization techniques: automated exposure control; mA and/or kV adjustment per patient size (includes targeted exams where dose is matched to clinical indication); or iterative reconstruction. COMPARISON: CT Chest without contrast 01/15/2021 11:18 AM FINDINGS: Tubes, catheters and devices: Right chest infusion port is present. Lungs: Bibasilar predominant chronic interstitial disease is again demonstrated compatible with pulmonary fibrosis. Appearance is similar from prior examination. Spiculated nodule at the right upper lobe measuring 2.1 cm, not significantly changed from prior. Pleural thickening at the right upper lobe is again demonstrated, stable. No new consolidation. Previous partial left-sided pneumonectomy. Pleural spaces: See "Lungs" finding. Heart: Coronary artery calcification. Mediastinal space: Small hiatal hernia. Aorta: Aortic calcification without aneurysm. Lymph nodes: Unremarkable. No enlarged lymph nodes. Gallbladder and bile ducts: Cholelithiasis. Spleen: There are calcified granulomas involving the spleen. Bones/joints: There are degenerative changes involving the spine. Soft tissues: Unremarkable. IMPRESSION: 1. Chronic interstitial disease compatible with pulmonary fibrosis, stable from prior. 2. No new consolidation. 3. Spiculated nodule at the right upper lobe measuring 2.1 cm, stable from prior. Electronically signed by: Michele Warren On 02/16/2021 23:38:38 PM
[2021-02-16] MEDS: OMEPRAZOLE 20 MG CAP PO SCH (23:40)
[2021-02-16] MEDS: TAMSULOSIN 0.4 MG CAP PO SCH (23:40)
[2021-02-16] MEDS: SIMVASTATIN 20 MG TAB PO SCH (23:40)
[2021-02-16] MEDS: GABAPENTIN 300 MG CAP PO SCH (23:40)
[2021-02-17 04:24] LABS: HEMATOCRIT 26.4 % (42.0-52.0); MEAN CORPUSCULAR HEMOGLOBIN 34.6 pg (27.0-33.0); MEAN CORPUSCULAR HGB CONC 35.2 g/dl (32.0-36.5); MEAN CORPUSCULAR VOLUME 98.1 fl (80.0-96.0); RED BLOOD COUNT 2.69 10^6/uL (4.30-6.10); WHITE BLOOD COUNT 1.4 10^3/uL (4.0-10.0)
[2021-02-17 04:47] LABS: BLOOD UREA NITROGEN 19 MG/DL (7-18); CALCIUM LEVEL 8.4 MG/DL (8.8-10.2); CARBON DIOXIDE LEVEL 33 MEQ/L (21-32); CHLORIDE LEVEL 102 MEQ/L (98-107); CREATININE FOR GFR 0.68 MG/DL (0.70-1.30); GLOMERULAR FILTRATION RATE > 60.0 (>42); GLUCOSE, FASTING 229 MG/DL (70-100); MAGNESIUM LEVEL 1.6 MG/DL (1.8-2.4); POTASSIUM SERUM 4.1 MEQ/L (3.5-5.1); SODIUM LEVEL 136 MEQ/L (136-145)
[2021-02-17 04:50] LABS: HEMOGLOBIN 9.3 g/dl (13.5-17.5); PLATELET COUNT, AUTOMATED 25 10^3/uL (150-450)
[2021-02-17 05:02] LABS: BASOPHILS 1 % (0-1); LYMPHOCYTES 53 % (16-44); MONOCYTES 2 % (0-5); NEUTROPHILS 44 % (28-66); PLATELET ESTIMATE MARKED DECREASE (NORMAL)
[2021-02-17] MEDS: SYMBICORT 160/4.5MCG INHALER 6GM INH SCH ×2 (08:00→20:00)
[2021-02-17 08:18] LABS: FERRITIN 1083 NG/ML (26-388); IRON (FE) 185 UG/DL (65-175); PERCENT SATURATION 69.5 % (19.7-50.0); TOTAL IRON BINDING CAPACITY 266 UG/DL (250-450)
[2021-02-17] MEDS: MAG SULF 1GM/100ML (MAG RUN) 1 GM in IV 1 EA IV SCH ×2 (08:27→11:06)
[2021-02-17] MEDS ORDERED: ADVAIR HFA 115/21MCG INHALER INH SCH (09:00)
[2021-02-17] MEDS ORDERED: RIVAROXABAN 20 MG TAB (XARELTO) PO SCH (09:00)
[2021-02-17] MEDS: METOPROLOL TART 12.5 MG PER 1/2 TAB PO SCH ×2 (09:00→21:11)
[2021-02-17 09:08] LABS: FOLATE > 24.0 NG/ML; TOTAL 25(OH) VITAMIN D 30.6 NG/ML (30.0-100.0); VITAMIN B12 LEVEL 876 PG/ML
[2021-02-17] MEDS ORDERED: SLF 3 ML SYR IV PRN (10:05)
--- NOTE | 2021-02-17 10:05 | ECGEPIP ---
[facility] - ED Test Date: 2021-02-16 Pat Name: LEO COOK Department: Room: [place] [address] Gender: Male Receiving Specialist: ANKITA : [id number] Requested By: Gal Costello Order Number: [id number] Reading MD: Kylie Jean Measurements Intervals [place] Rate: 67 P: 95 [place]: QRS: -71 QRSD: 148 T: 87 QT: 384 QTc: 405 Interpretive Statements Ventricular-paced rhythm Electronically Signed on 02-17-2021 10:05:30 EDT by Kylie Jean
[2021-02-17 10:08] VITALS: BP 90/51
[2021-02-17] MEDS ORDERED: NS 500 ML IV ONE (10:50)
--- NOTE | 2021-02-17 10:56 | IPNPDOC ---
Date Seen The patient was seen on 02/17/21. Progress Note SUBJECTIVE: Patient seen examined at bedside. Presently on 3 L of nasal cannula. No longer having any epistaxis. States spontaneously resolved once he arrived to the ER. Denies any chest pain shortness of breath palpitations fever chills. OBJECTIVE PHYSICAL EXAMINATION: VITAL SIGNS: please see below General: NAD, comfortable HEENT: PERRLA, EOMI, sclerae clear, nasal cannula in place, no active bleeding from nares Neck: supple, normal ROM, no JVD Respiratory: Reduced air entry bilaterally poor inspiratory effort no wheeze or crackle CVS: RRR, normal S1, S2, no murmurs Abdo: soft, no masses, no hepatosplenomegaly, BS+, no rebound tenderness Extremities: no edema, pulses 2+ MSK: no joint deformities, normal ROM Neuro: no focal neuro deficits, moving all 4 extremities, CN2-12 intact. Strength 5/5 in all 4 extremities. No nystagmus. Psych: calm, cooperative, AAO x 3 LABORATORY DATA, IMAGING STUDIES, MICROBIOLOGY: Please see below. DVT prophylaxis ordered?: Teds, avoid chemoprophylaxis due to thrombocytopenia. Holding Xarelto. ASSESSMENT AND PLAN: This is a 75 y/o male with a pmh of a-fib s/p pacemaker placement on xarelto, hld, htn, copd, pulmonary fibrosis, recurrent lung ca s/p left upper lobectomy currently on chemo who reports to our ED on 02/16 with a cc of recurrent nosebleeds for the past 3 days. Patient states that along with his nosebleeds, he has been having increased weakness and dizziness, however this has been worsening over several weeks. Patient states that these symptoms have caused him to fall multiple times, and states that he believes he hit his head in one fall that happened several weeks ago]. . PLAN: 1. Pancytopenia/epistaxis - PLT count 25 this morning - d/w Dr. Diggs. patient was started on carboplatinum and gemcitabine - increased risk for thrombocytopenia - will transfuse PLT, ordered 1 unit (expect increase 30K to 50K) - repeat CBC 2 hours after transfusion - rare complication of gemcitabine, HUS. Check peripheral smear and LDH level. - d/w Dr. Mott from ENT. No need for direct exam at this time, as not actively bleeding - humidified O2, nasal saline spray. hold xarelto. If re-bleeds will consult for direct exam 2. Weakness/dizziness/recurrent falls - Likely secondary to deconditioning from chemo, his slight anemia, and his chemo induced peripheral neuropathy. Less likely secondary to infxn - PT/OT ordered - continue gabapentin for neuropathy 3. COPD - Patient not in acute exacerbation - Will continue supplemental o2 as patient wears 2L at home - Continue at home inhalers - continue guaifenesin 4. A-fib - Patient currently rate controlled and paced - will continue digoxin, metoprolol - holding xarelto 5. BPH - continue flomax 6. GERD - continue omeprazole 7. HLD - continue simvastatin DVT prophylaxis - mechanical VS, I&O, 24H, Fishbone Vital Signs/I&O Vital Signs Date Time Temp Pulse Resp B/P (MAP) Pulse Ox O2 Delivery O2 Flow Rate FiO2 02/17/21 10:08 97.1 66 18 90/51 (64) 100 Nasal Cannula 3.0 Laboratory Data 24H LABS Laboratory Tests 2 02/16/21 19:16: Neutrophils (%) (Auto) , Nucleated Red Blood Cells % (auto) 0.0, Neutrophils 71H, Lymphocytes (Manual) 26, Monocytes (Manual) 1, Eosinophils (Manual) 1, Atypical Lymphocytes 1, Platelet Estimate MARKED DECREASE, Immature Platelet Fraction 3.2, Erythrocyte Sedimentation Rate 49H, Anion Gap 3L, Glomerular Filtration Rate > 60.0, Calcium Level 9.0, Total Bilirubin 1.0, Direct Bilirubin 0.3H, Aspartate Amino Transf (AST/SGOT) 19, Alanine Aminotransferase (ALT/SGPT) 15, Alkaline Phosphatase 96, Total Creatine Kinase 46, Creatine Kinase MB 2.4, Creatine Kinase MB Relative Index 5.22H, Troponin I < 0.02, C-Reactive Protein, Quantitative 3.03H, Total Protein 6.5, Albumin 3.2, Albumin/Globulin Ratio 1.0, Vitamin B12 Level 876, 25-Hydroxy Vitamin D Total 30.6, Folate > 24.0, Thyroid Stimulating Hormone (TSH) 2.170, Thyroxine (T4) 9.9 02/16/21 20:22: Coronavirus (COVID-19)(PCR) NEGATIVE, Influenza Type A (RT-PCR) NEGATIVE, Influenza Type B (RT-PCR) NEGATIVE, Respiratory Syncytial Virus (PCR) NEGATIVE 02/17/21 04:12: Neutrophils (%) (Auto) , Nucleated Red Blood Cells % (auto) 0.0, Neutrophils 44, Lymphocytes (Manual) 53H, Monocytes (Manual) 2, Platelet Estimate MARKED DECREASE, Anion Gap 1L, Glomerular Filtration Rate > 60.0, Calcium Level 8.4L, Neutrophils # (Auto) , Basophils (Manual) 1, Macrocytosis 1+, Magnesium Level 1.6L, Iron Level 185H, Total Iron Binding Capacity 266, Transferrin % Saturation 69.5H, Ferritin 1083H CBC/BMP Laboratory Tests 02/16/21 19:16 02/17/21 04:12 EMIR SHANKS MD Feb 17, 2021 10:56
[2021-02-17] MEDS: DOCUSATE SODIUM 100MG CAPSULE PO SCH ×2 (11:05→21:11)
[2021-02-17] MEDS: OMEPRAZOLE 20 MG CAP PO SCH ×2 (11:05→21:11)
[2021-02-17] MEDS: MULTIVITAMINS/MINERALS THERAP 1 TAB PO SCH (11:05)
[2021-02-17] MEDS: SODIUM CHLORIDE NASAL 0.65% SPRAY BTL (OCEAN) SCH ×3 (11:06→21:12)
[2021-02-17 11:58] VITALS: BP 92/54
[2021-02-17 16:55] VITALS: BP 100/60
[2021-02-17] MEDS: SLF 3 ML SYR IV SCH ×2 (17:02→21:12)
[2021-02-17 18:35] VITALS: BP 98/60
[2021-02-17 20:00] VITALS: BP 104/56
[2021-02-17] MEDS: TAMSULOSIN 0.4 MG CAP PO SCH (21:11)
[2021-02-17] MEDS: DIGOXIN 0.25 MG TAB PO SCH (21:11)
[2021-02-17] MEDS: GABAPENTIN 300 MG CAP PO SCH (21:11)
[2021-02-17] MEDS: ACETAMINOPHEN TAB 650MG DOSE (2X325MG) PO PRN (21:12)
[2021-02-17] MEDS: SIMVASTATIN 20 MG TAB PO SCH (21:12)
[2021-02-18] VITALS (12 sets, daily range): BP systolic 84–99; BP diastolic 47–63
[2021-02-18 05:22] LABS: HEMATOCRIT 23.9 % (42.0-52.0); HEMOGLOBIN 8.3 g/dl (13.5-17.5); MEAN CORPUSCULAR HEMOGLOBIN 34.4 pg (27.0-33.0); MEAN CORPUSCULAR HGB CONC 34.7 g/dl (32.0-36.5); MEAN CORPUSCULAR VOLUME 99.2 fl (80.0-96.0); RED BLOOD COUNT 2.41 10^6/uL (4.30-6.10); WHITE BLOOD COUNT 1.4 10^3/uL (4.0-10.0)
[2021-02-18] MEDS: SLF 3 ML SYR IV SCH ×3 (05:22→20:34)
[2021-02-18 05:28] LABS: PLATELET COUNT, AUTOMATED 24 10^3/uL (150-450)
[2021-02-18] MEDS ORDERED: NS 500 ML IV ONE (05:35)
[2021-02-18 05:41] LABS: BLOOD UREA NITROGEN 19 MG/DL (7-18); CALCIUM LEVEL 7.8 MG/DL (8.8-10.2); CARBON DIOXIDE LEVEL 32 MEQ/L (21-32); CHLORIDE LEVEL 107 MEQ/L (98-107); CREATININE FOR GFR 0.61 MG/DL (0.70-1.30); GLOMERULAR FILTRATION RATE > 60.0 (>42); GLUCOSE, FASTING 101 MG/DL (70-100); MAGNESIUM LEVEL 1.8 MG/DL (1.8-2.4); POTASSIUM SERUM 4.1 MEQ/L (3.5-5.1); SODIUM LEVEL 141 MEQ/L (136-145)
[2021-02-18 06:00] LABS: ATYPICAL LYMPH 2 % (0-5); LYMPHOCYTES 55 % (16-44); MONOCYTES 1 % (0-5); NEUTROPHILS 42 % (28-66); PLATELET ESTIMATE MARKED DECREASE (NORMAL)
[2021-02-18] MEDS: SYMBICORT 160/4.5MCG INHALER 6GM INH SCH ×2 (07:24→19:38)
[2021-02-18 08:29] LABS: LDH LACTATE DEHYDROGENASE 190 U/L (87-241)
[2021-02-18] MEDS: METOPROLOL TART 12.5 MG PER 1/2 TAB PO SCH ×2 (09:00→20:28)
[2021-02-18] MEDS: OMEPRAZOLE 20 MG CAP PO SCH ×2 (09:07→20:29)
[2021-02-18] MEDS: SODIUM CHLORIDE NASAL 0.65% SPRAY BTL (OCEAN) SCH ×3 (09:07→20:34)
[2021-02-18] MEDS: DOCUSATE SODIUM 100MG CAPSULE PO SCH ×2 (09:07→20:28)
[2021-02-18] MEDS: MULTIVITAMINS/MINERALS THERAP 1 TAB PO SCH (09:07)
[2021-02-18 14:00] LABS: LDH LACTATE DEHYDROGENASE 194 U/L (87-241)
--- NOTE | 2021-02-18 17:48 | IPNPDOC ---
Date Seen The patient was seen on 02/18/21. Progress Note SUBJECTIVE: Patient seen examined at bedside. Presently on 2 L of nasal cannula. No longer having any epistaxis. States spontaneously resolved once he arrived to the ER. Denies any chest pain shortness of breath palpitations fever chills. OBJECTIVE PHYSICAL EXAMINATION: VITAL SIGNS: please see below General: NAD, comfortable HEENT: PERRLA, EOMI, sclerae clear, nasal cannula in place, no active bleeding from nares Neck: supple, normal ROM, no JVD Respiratory: Reduced air entry bilaterally poor inspiratory effort no wheeze or crackle CVS: RRR, normal S1, S2, no murmurs Abdo: soft, no masses, no hepatosplenomegaly, BS+, no rebound tenderness Extremities: no edema, pulses 2+ MSK: no joint deformities, normal ROM Neuro: no focal neuro deficits, moving all 4 extremities, CN2-12 intact. Strength 5/5 in all 4 extremities. No nystagmus. Psych: calm, cooperative, AAO x 3 LABORATORY DATA, IMAGING STUDIES, MICROBIOLOGY: Please see below. DVT prophylaxis ordered?: Teds, avoid chemoprophylaxis due to thrombocytopenia. Holding Xarelto. ASSESSMENT AND PLAN: This is a 75 y/o male with a pmh of a-fib s/p pacemaker placement on xarelto, hld, htn, copd, pulmonary fibrosis, recurrent lung ca s/p left upper lobectomy currently on chemo who reports to our ED on 02/16 with a cc of recurrent nosebleeds for the past 3 days. Patient states that along with his nosebleeds, he has been having increased weakness and dizziness, however this has been worsening over several weeks. Patient states that these symptoms have caused him to fall multiple times, and states that he believes he hit his head in one fall that happened several weeks ago]. . PLAN: 1. Pancytopenia/epistaxis - PLT count persists at 24 this morning - d/w Dr. Diggs. patient was started on carboplatinum and gemcitabine - increased risk for thrombocytopenia - ordered an additional 2 units of PLTs (total 3), repeat CBC later this afternoon. - repeat CBC 2 hours after transfusion - rare complication of gemcitabine, HUS. Check peripheral smear and LDH level. - d/w Dr. Mott from ENT. No need for direct exam at this time, as not actively bleeding - humidified O2, nasal saline spray. hold xarelto. If re-bleeds will consult for direct exam 2. Weakness/dizziness/recurrent falls - Likely secondary to deconditioning from chemo, his slight anemia, and his chemo induced peripheral neuropathy. Less likely secondary to infxn - PT/OT ordered - continue gabapentin for neuropathy - will stay with son on DC, no steps in house - will require home PT/OT 3. COPD - Patient not in acute exacerbation - Will continue supplemental o2 as patient wears 2L at home - Continue at home inhalers - continue guaifenesin 4. A-fib - Patient currently rate controlled and paced - will continue digoxin, metoprolol - holding xarelto 5. BPH - continue flomax 6. GERD - continue omeprazole 7. HLD - continue simvastatin DVT prophylaxis - mechanical VS, I&O, 24H, Fishbone Vital Signs/I&O Vital Signs Date Time Temp Pulse Resp B/P (MAP) Pulse Ox O2 Delivery O2 Flow Rate FiO2 02/18/21 16:21 98.9 61 18 84/47 100 Nasal Cannula 2.0 I&O- Last 24 Hours up to 6 AM 02/18/21 06:00 Intake Total 2083 ml Output Total 1670 ml Balance 413 ml Laboratory Data 24H LABS Laboratory Tests 2 02/18/21 04:48: Neutrophils (%) (Auto) , Neutrophils # (Auto) , Nucleated Red Blood Cells % (auto) 0.0, Neutrophils 42, Lymphocytes (Manual) 55H, Monocytes (Manual) 1, Atypical Lymphocytes 2, Macrocytosis 1+, Platelet Estimate MARKED DECREASE, Immature Platelet Fraction 2.5, Anion Gap 2L, Glomerular Filtration Rate > 60.0, Calcium Level 7.8L, Magnesium Level 1.8, Lactate Dehydrogenase 190 CBC/BMP Laboratory Tests 02/18/21 04:48 EMIR SHANKS MD Feb 18, 2021 17:48
[2021-02-18] MEDS ORDERED: ONDANSETRON 4MG/2ML VIAL IV PRN (18:10)
[2021-02-18 18:15] LABS: HEMATOCRIT 24.1 % (42.0-52.0); HEMOGLOBIN 8.5 g/dl (13.5-17.5); MEAN CORPUSCULAR HEMOGLOBIN 35.1 pg (27.0-33.0); MEAN CORPUSCULAR HGB CONC 35.3 g/dl (32.0-36.5); MEAN CORPUSCULAR VOLUME 99.6 fl (80.0-96.0); RED BLOOD COUNT 2.42 10^6/uL (4.30-6.10)
[2021-02-18 19:14] LABS: PLATELET COUNT, AUTOMATED 52 10^3/uL (150-450)
[2021-02-18 19:20] LABS: BASOPHILS 2 % (0-1); EOSINOPHILS 1 % (0-3); LYMPHOCYTES 47 % (16-44); MONOCYTES 2 % (0-5); NEUTROPHILS 48 % (28-66); PLATELET ESTIMATE MARKED DECREASE (NORMAL)
[2021-02-18] MEDS: GABAPENTIN 300 MG CAP PO SCH (20:29)
[2021-02-18] MEDS: SIMVASTATIN 20 MG TAB PO SCH (20:29)
[2021-02-18] MEDS: DIGOXIN 0.25 MG TAB PO SCH (20:32)
[2021-02-18] MEDS: TAMSULOSIN 0.4 MG CAP PO SCH (20:35)
[2021-02-19] VITALS (12 sets, daily range): BP systolic 86–112; BP diastolic 49–61
[2021-02-19] MEDS: ACETAMINOPHEN TAB 650MG DOSE (2X325MG) PO PRN ×2 (04:04→22:45)
[2021-02-19 05:00] LABS: HEMATOCRIT 22.4 % (42.0-52.0); HEMOGLOBIN 7.8 g/dl (13.5-17.5); LYMPH # 0.4 10^3/uL (1.5-5.0); LYMPH % 35.6 % (24.0-44.0); MEAN CORPUSCULAR HEMOGLOBIN 34.1 pg (27.0-33.0); MEAN CORPUSCULAR HGB CONC 34.8 g/dl (32.0-36.5); MEAN CORPUSCULAR VOLUME 97.8 fl (80.0-96.0); MONO # 0.1 10^3/uL (0.0-0.8); MONO % 8.9 % (2.0-8.0); NEUTROPHILS % 40.6 % (36.0-66.0); RED BLOOD COUNT 2.29 10^6/uL (4.30-6.10)
[2021-02-19 05:02] LABS: NEUTROPHILS # 0.4 10^3/uL (1.5-8.5); PLATELET COUNT, AUTOMATED 41 10^3/uL (150-450)
[2021-02-19 05:20] LABS: BLOOD UREA NITROGEN 17 MG/DL (7-18); CALCIUM LEVEL 7.9 MG/DL (8.8-10.2); CARBON DIOXIDE LEVEL 30 MEQ/L (21-32); CHLORIDE LEVEL 105 MEQ/L (98-107); CREATININE FOR GFR 0.64 MG/DL (0.70-1.30); GLOMERULAR FILTRATION RATE > 60.0 (>42); GLUCOSE, FASTING 147 MG/DL (70-100); MAGNESIUM LEVEL 1.5 MG/DL (1.8-2.4); POTASSIUM SERUM 4.1 MEQ/L (3.5-5.1); SODIUM LEVEL 139 MEQ/L (136-145)
[2021-02-19] MEDS: SLF 3 ML SYR IV SCH ×3 (06:35→22:06)
[2021-02-19] MEDS: SYMBICORT 160/4.5MCG INHALER 6GM INH SCH ×2 (07:53→19:32)
[2021-02-19] MEDS: METOPROLOL TART 12.5 MG PER 1/2 TAB PO SCH ×2 (09:00→22:05)
[2021-02-19] MEDS: DOCUSATE SODIUM 100MG CAPSULE PO SCH ×2 (09:00→22:03)
[2021-02-19] MEDS: MULTIVITAMINS/MINERALS THERAP 1 TAB PO SCH (10:22)
[2021-02-19] MEDS: OMEPRAZOLE 20 MG CAP PO SCH ×2 (10:23→22:03)
[2021-02-19] MEDS: SODIUM CHLORIDE NASAL 0.65% SPRAY BTL (OCEAN) SCH ×3 (10:24→22:00)
--- NOTE | 2021-02-19 14:15 | REP ---
INDICATION: flank pain. COMPARISON: 11/04/2016. TECHNIQUE: Real-time sonographic evaluation of the kidneys is performed. FINDINGS: Renal cortical echogenicity pattern is normal bilaterally and contours are smooth. There is no hydronephrosis bilaterally. There is a cyst in the upper pole the right kidney 8 mm in diameter. There is a cyst in the mid left kidney 1.3 cm in diameter. The right kidney measures 12.4 x 5.8 x 5.5 cm. Left renal dimensions are 12.0 x 5.3 x 7.0 cm. The urinary bladder is unremarkable. Ureteral jets are visualized within the urinary bladder bilaterally with Doppler color evaluation. The prostate measures 4.1 x 3.6 x 4.4 cm, total volume 33.8 cc. IMPRESSION: No hydronephrosis. There is a cyst seen in each kidney. <Electronically signed by Franck Norton > 02/19/21 [id number]
[2021-02-19 15:35] LABS: HEMOGLOBIN 7.2 g/dl (13.5-17.5); MEAN CORPUSCULAR HEMOGLOBIN 35.1 pg (27.0-33.0); MEAN CORPUSCULAR HGB CONC 35.8 g/dl (32.0-36.5); RED BLOOD COUNT 2.05 10^6/uL (4.30-6.10); WHITE BLOOD COUNT 1.2 10^3/uL (4.0-10.0)
[2021-02-19 15:36] LABS: HEMATOCRIT 20.1 % (42.0-52.0)
[2021-02-19 16:02] LABS: PLATELET COUNT, AUTOMATED 39 10^3/uL (150-450)
[2021-02-19 16:15] LABS: ATYPICAL LYMPH 2 % (0-5); EOSINOPHILS 3 % (0-3); LYMPHOCYTES 29 % (16-44); MONOCYTES 1 % (0-5); NEUTROPHILS 51 % (28-66); PLATELET ESTIMATE MARKED DECREASE (NORMAL)
--- NOTE | 2021-02-19 17:46 | IPNPDOC ---
Date Seen The patient was seen on 02/19/21. Progress Note SUBJECTIVE: Patient seen examined at bedside. Presently on 2 L of nasal cannula. No longer having any epistaxis. States spontaneously resolved once he arrived to the ER. Denies any chest pain shortness of breath palpitations fever chills. OBJECTIVE PHYSICAL EXAMINATION: VITAL SIGNS: please see below General: NAD, comfortable HEENT: PERRLA, EOMI, sclerae clear, nasal cannula in place, no active bleeding from nares Neck: supple, normal ROM, no JVD Respiratory: Reduced air entry bilaterally poor inspiratory effort no wheeze or crackle CVS: RRR, normal S1, S2, no murmurs Abdo: soft, no masses, no hepatosplenomegaly, BS+, no rebound tenderness Extremities: no edema, pulses 2+ MSK: no joint deformities, normal ROM Neuro: no focal neuro deficits, moving all 4 extremities, CN2-12 intact. Strength 5/5 in all 4 extremities. No nystagmus. Psych: calm, cooperative, AAO x 3 LABORATORY DATA, IMAGING STUDIES, MICROBIOLOGY: Please see below. DVT prophylaxis ordered?: Teds, avoid chemoprophylaxis due to thrombocytopenia. Holding Xarelto. ASSESSMENT AND PLAN: This is a 75 y/o male with a pmh of a-fib s/p pacemaker placement on xarelto, hld, htn, copd, pulmonary fibrosis, recurrent lung ca s/p left upper lobectomy currently on chemo who reports to our ED on 02/16 with a cc of recurrent nosebleeds for the past 3 days. Patient states that along with his nosebleeds, he has been having increased weakness and dizziness, however this has been worsening over several weeks. Patient states that these symptoms have caused him to fall multiple times, and states that he believes he hit his head in one fall that happened several weeks ago]. . PLAN: 1. Pancytopenia/epistaxis - PLT count persists at 24 this morning - d/w Dr. Diggs. patient was started on carboplatinum and gemcitabine - increased risk for thrombocytopenia - rare complication of gemcitabine, HUS. Check peripheral smear and LDH level. - LDH wnl x 2, not likely to be hemolyzing - ordered a 4th units of PLT per Dr. Diggs's recs. Plan is to tranfuse PLT generously - Hgb 7.2, will tranfuse 1 unit pRBC. - d/w Dr. Mott from ENT. No need for direct exam at this time, as not actively bleeding. To f/u in clinic. - humidified O2, nasal saline spray. hold xarelto. If re-bleeds will consult for direct exam 2. Weakness/dizziness/recurrent falls - Likely secondary to deconditioning from chemo, his slight anemia, and his chemo induced peripheral neuropathy. Less likely secondary to infxn - PT/OT ordered - continue gabapentin for neuropathy - will stay with son on DC, no steps in house - will require home PT/OT 3. COPD - Patient not in acute exacerbation - Will continue supplemental o2 as patient wears 2L at home - Continue at home inhalers - continue guaifenesin 4. A-fib - Patient currently rate controlled and paced - will continue digoxin, metoprolol - holding xarelto 5. BPH - continue flomax 6. GERD - continue omeprazole 7. HLD - continue simvastatin DVT prophylaxis - mechanical Dispo: PT recommending 24/7 care vs rehab. I had a conversation with PFS team Martell Koo, it appears family cannot reliably provide 24/7 care as they are working, and have lost assistance from home health aides. Most likely, patient will require care at a f[facility] facility. VS, I&O, 24H, Fishbone Vital Signs/I&O Vital Signs Date Time Temp Pulse Resp B/P (MAP) Pulse Ox O2 Delivery O2 Flow Rate FiO2 02/19/21 16:41 99.5 94 24 101/56 (71) 99 Nasal Cannula 2.0 I&O- Last 24 Hours up to 6 AM 02/19/21 06:00 Intake Total 1745 ml Output Total 1750 ml Balance -5 ml Laboratory Data 24H LABS Laboratory Tests 2 02/18/21 17:55: Neutrophils (%) (Auto) , Neutrophils # (Auto) , Nucleated Red Blood Cells % (auto) 0.0, Neutrophils 48, Lymphocytes (Manual) 47H, Monocytes (Manual) 2, Eosinophils (Manual) 1, Basophils (Manual) 2H, Platelet Estimate MARKED DECREASE 02/19/21 04:28: Neutrophils (%) (Auto) 40.6, Neutrophils # (Auto) 0.4L, Nucleated Red Blood Cells % (auto) 0.0, Immature Granulocyte % (Auto) 12.9H, Lymphocytes (%) (Auto) 35.6, Monocytes (%) (Auto) 8.9H, Eosinophils (%) (Auto) 2.0, Basophils (%) (Auto) 0.0, Lymphocytes # (Auto) 0.4L, Monocytes # (Auto) 0.1, Eosinophils # (Auto) 0.0, Basophils # (Auto) 0.0, Anion Gap 4L, Glomerular Filtration Rate > 60.0, Calcium Level 7.9L, Magnesium Level 1.5L 02/19/21 11:07: Urine Color YELLOW, Urine Appearance CLOUDYH, Urine pH 7.0, Urine Specific [place] 1.017, Urine Protein NEGATIVE, Urine Glucose (UA) 1+H, Urine Ketones NEGATIVE, Urine Blood NEGATIVE, Urine Nitrite NEGATIVE, Urine Bilirubin NEGATIVE, Urine Urobilinogen 4.0H, Urine Leukocyte Esterase 1+H, Urine WBC (Auto) 44H, Urine RBC (Auto) 0, Urine Hyaline Casts (Auto) 0, Urine Bacteria (Auto) 1+H, Urine Squamous Epithelial Cells 4, Urine Sperm (Auto) 02/19/21 15:23: Neutrophils (%) (Auto) , Neutrophils # (Auto) , Nucleated Red Blood Cells % (auto) 0.0, Neutrophils 51, Lymphocytes (Manual) 29, Monocytes (Manual) 1, Eosinophils (Manual) 3, Platelet Estimate MARKED DECREASE, Band Neutrophils 14H, Atypical Lymphocytes 2, Immature Platelet Fraction 2.1 CBC/BMP Laboratory Tests 02/18/21 17:55 02/19/21 04:28 02/19/21 15:23 Microbiology Microbiology 02/19/21 Urine Culture, Received Pending EMIR SHANKS MD Feb 19, 2021 17:46
[2021-02-19] MEDS: cefTRIAXone SOD 1 GM in D5W MINI-BAG PLUS 50 ML IV SCH (18:32)
[2021-02-19] MEDS: GABAPENTIN 300 MG CAP PO SCH (22:05)
[2021-02-19] MEDS: SIMVASTATIN 20 MG TAB PO SCH (22:05)
[2021-02-19] MEDS: TAMSULOSIN 0.4 MG CAP PO SCH (22:05)
[2021-02-19] MEDS: DIGOXIN 0.25 MG TAB PO SCH (22:06)
[2021-02-20] VITALS (11 sets, daily range): BP systolic 85–108; BP diastolic 48–55
[2021-02-20 04:43] LABS: HEMATOCRIT 29.2 % (42.0-52.0); HEMOGLOBIN 10.3 g/dl (13.5-17.5); MEAN CORPUSCULAR HEMOGLOBIN 33.8 pg (27.0-33.0); MEAN CORPUSCULAR HGB CONC 35.3 g/dl (32.0-36.5); MEAN CORPUSCULAR VOLUME 95.7 fl (80.0-96.0); RED BLOOD COUNT 3.05 10^6/uL (4.30-6.10); WHITE BLOOD COUNT 1.4 10^3/uL (4.0-10.0)
[2021-02-20 04:48] LABS: PLATELET COUNT, AUTOMATED 41 10^3/uL (150-450)
[2021-02-20 05:14] LABS: BLOOD UREA NITROGEN 10 MG/DL (7-18); CALCIUM LEVEL 8.2 MG/DL (8.8-10.2); CARBON DIOXIDE LEVEL 30 MEQ/L (21-32); CHLORIDE LEVEL 105 MEQ/L (98-107); CREATININE FOR GFR 0.46 MG/DL (0.70-1.30); GLOMERULAR FILTRATION RATE > 60.0 (>42); GLUCOSE, FASTING 124 MG/DL (70-100); MAGNESIUM LEVEL 1.5 MG/DL (1.8-2.4); SODIUM LEVEL 138 MEQ/L (136-145)
[2021-02-20 05:28] LABS: EOSINOPHILS 1 % (0-3); LYMPHOCYTES 34 % (16-44); MONOCYTES 3 % (0-5); NEUTROPHILS 58 % (28-66)
[2021-02-20 05:29] LABS: PLATELET ESTIMATE MARKED DECREASE (NORMAL)
[2021-02-20] MEDS: SLF 3 ML SYR IV SCH ×3 (06:00→21:40)
[2021-02-20] MEDS: SYMBICORT 160/4.5MCG INHALER 6GM INH SCH ×2 (08:21→19:03)
[2021-02-20] MEDS: DOCUSATE SODIUM 100MG CAPSULE PO SCH ×2 (08:49→21:38)
[2021-02-20] MEDS: OMEPRAZOLE 20 MG CAP PO SCH ×2 (08:49→21:39)
[2021-02-20] MEDS: MAG SULF 1GM/100ML (MAG RUN) 1 GM in IV 1 EA IV SCH ×2 (08:49→10:49)
[2021-02-20] MEDS: MULTIVITAMINS/MINERALS THERAP 1 TAB PO SCH (08:49)
[2021-02-20] MEDS: SODIUM CHLORIDE NASAL 0.65% SPRAY BTL (OCEAN) SCH ×3 (08:49→21:39)
[2021-02-20] MEDS: ACETAMINOPHEN TAB 650MG DOSE (2X325MG) PO PRN ×2 (08:51→15:47)
[2021-02-20] MEDS: METOPROLOL TART 12.5 MG PER 1/2 TAB PO SCH ×2 (08:51→21:38)
[2021-02-20] MEDS: cefTRIAXone SOD 1 GM in D5W MINI-BAG PLUS 50 ML IV SCH (15:47)
--- NOTE | 2021-02-20 16:01 | IPNPDOC ---
Date Seen The patient was seen on 02/20/21. Progress Note SUBJECTIVE: Patient seen examined at bedside. Presently on 2 L of nasal cannula. No longer having any epistaxis. States spontaneously resolved once he arrived to the ER. Denies any chest pain shortness of breath palpitations fever chills. OBJECTIVE PHYSICAL EXAMINATION: VITAL SIGNS: please see below General: NAD, comfortable HEENT: PERRLA, EOMI, sclerae clear, nasal cannula in place, no active bleeding from nares Neck: supple, normal ROM, no JVD Respiratory: Reduced air entry bilaterally poor inspiratory effort no wheeze or crackle CVS: RRR, normal S1, S2, no murmurs Abdo: soft, no masses, no hepatosplenomegaly, BS+, no rebound tenderness Extremities: no edema, pulses 2+ MSK: no joint deformities, normal ROM Neuro: no focal neuro deficits, moving all 4 extremities, CN2-12 intact. Strength 5/5 in all 4 extremities. No nystagmus. Psych: calm, cooperative, AAO x 3 LABORATORY DATA, IMAGING STUDIES, MICROBIOLOGY: Please see below. DVT prophylaxis ordered?: Teds, avoid chemoprophylaxis due to thrombocytopenia. Holding Xarelto. ASSESSMENT AND PLAN: This is a 75 y/o male with a pmh of a-fib s/p pacemaker placement on xarelto, hld, htn, copd, pulmonary fibrosis, recurrent lung ca s/p left upper lobectomy currently on chemo who reports to our ED on 02/16 with a cc of recurrent nosebleeds for the past 3 days. Patient states that along with his nosebleeds, he has been having increased weakness and dizziness, however this has been worsening over several weeks. Patient states that these symptoms have caused him to fall multiple times, and states that he believes he hit his head in one fall that happened several weeks ago]. . PLAN: #Pancytopenia/epistaxis - PLT count persists at 24 this morning - d/w Dr. Diggs. patient was started on carboplatinum and gemcitabine - increased risk for thrombocytopenia - rare complication of gemcitabine, HUS. Check peripheral smear and LDH level. - LDH wnl x 2, not likely to be hemolyzing - ordered a 4th units of PLT per Dr. Diggs's recs. Plan is to tranfuse PLT generously - Hgb 7.2, will tranfuse 1 unit pRBC. - d/w Dr. Mott from ENT. No need for direct exam at this time, as not actively bleeding. To f/u in clinic. - humidified O2, nasal saline spray. #Concern for development of neutropenic fever - this morning patient T 99.9 - started infectious workup. Presently on ceftriaxone for TUI - ANC 850 - D/w Dr. Diggs - will start patient on neupogen until ANC reached [phone] #UTI - ceftriaxone - UA dirty, culture pneding # Weakness/dizziness/recurrent falls - Likely secondary to deconditioning from chemo, his slight anemia, and his chemo induced peripheral neuropathy. Less likely secondary to infxn - PT/OT ordered - continue gabapentin for neuropathy - will stay with son on DC, no steps in house - will require home PT/OT # COPD - Patient not in acute exacerbation - Will continue supplemental o2 as patient wears 2L at home - Continue at home inhalers - continue guaifenesin # A-fib - Patient currently rate controlled and paced - will continue digoxin, metoprolol - will hold xarelto, but will resume patient on lovenox daily starting this evening. - patient is currently in a monitored setting, and lovenox can be stopped much more quickly than xarelto. # BPH - continue flomax #. GERD - continue omeprazole # HLD - continue simvastatin DVT prophylaxis - mechanical Dispo: PT recommending 24/7 care vs rehab. I had a conversation with PFS team Martell Koo, it appears family cannot reliably provide 24/7 care as they are working, and have lost assistance from home health aides. Most likely, patient will require care at a [facility] facility. VS, I&O, 24H, [place] Vital Signs/I&O Vital Signs Date Time Temp Pulse Resp B/P (MAP) Pulse Ox O2 Delivery O2 Flow Rate FiO2 02/20/21 15:29 98.6 63 18 99/53 (68) 96 Nasal Cannula 2.0 I&O- Last 24 Hours up to 6 AM 02/20/21 06:00 Intake Total 2550 ml Output Total 900 ml Balance 1650 ml Laboratory Data 24H LABS Laboratory Tests 2 02/20/21 04:09: Neutrophils (%) (Auto) , Neutrophils # (Auto) , Nucleated Red Blood Cells % (auto) 0.0, Neutrophils 58, Band Neutrophils 4, Lymphocytes (Manual) 34, Monocytes (Manual) 3, Eosinophils (Manual) 1, Platelet Estimate MARKED DECREASE, Anion Gap 3L, Glomerular Filtration Rate > 60.0, Calcium Level 8.2L, Magnesium Level 1.5L CBC/BMP Laboratory Tests 02/20/21 04:09 Microbiology Microbiology 02/20/21 Blood Culture, Received Pending 02/20/21 Blood Culture, Received Pending 02/19/21 Urine Culture, Received Pending EMIR SHANKS MD Feb 20, 2021 16:01
[2021-02-20] MEDS: FILGRASTIM 300 MCG/0.5 ML SYRINGE (J1442 PER 1MCG) SC SCH (18:29)
[2021-02-20] MEDS: TAMSULOSIN 0.4 MG CAP PO SCH (21:38)
[2021-02-20] MEDS: SIMVASTATIN 20 MG TAB PO SCH (21:39)
[2021-02-20] MEDS: DIGOXIN 0.25 MG TAB PO SCH (21:39)
[2021-02-20] MEDS: GABAPENTIN 300 MG CAP PO SCH (21:39)
[2021-02-20] MEDS: ENOXAPARIN 80MG/0.8ML SYRINGE (J1650 PER 10MG) SC SCH (21:39)
[2021-02-21] VITALS (7 sets, daily range): BP systolic 91–123; BP diastolic 54–62
[2021-02-21 04:42] LABS: HEMATOCRIT 27.3 % (42.0-52.0); HEMOGLOBIN 9.4 g/dl (13.5-17.5); MEAN CORPUSCULAR HEMOGLOBIN 33.3 pg (27.0-33.0); MEAN CORPUSCULAR HGB CONC 34.4 g/dl (32.0-36.5); MEAN CORPUSCULAR VOLUME 96.8 fl (80.0-96.0); RED BLOOD COUNT 2.82 10^6/uL (4.30-6.10); WHITE BLOOD COUNT 1.3 10^3/uL (4.0-10.0)
[2021-02-21 04:53] LABS: PLATELET COUNT, AUTOMATED 47 10^3/uL (150-450)
[2021-02-21 05:02] LABS: BLOOD UREA NITROGEN 12 MG/DL (7-18); CARBON DIOXIDE LEVEL 32 MEQ/L (21-32); CHLORIDE LEVEL 105 MEQ/L (98-107); CREATININE FOR GFR 0.54 MG/DL (0.70-1.30); GLOMERULAR FILTRATION RATE > 60.0 (>42); GLUCOSE, FASTING 119 MG/DL (70-100); MAGNESIUM LEVEL 1.7 MG/DL (1.8-2.4); POTASSIUM SERUM 4.1 MEQ/L (3.5-5.1); SODIUM LEVEL 139 MEQ/L (136-145)
[2021-02-21 05:16] LABS: ATYPICAL LYMPH 2 % (0-5); LYMPHOCYTES 39 % (16-44); MONOCYTES 5 % (0-5); NEUTROPHILS 48 % (28-66); PLATELET ESTIMATE MARKED DECREASE (NORMAL)
[2021-02-21] MEDS: SLF 3 ML SYR IV SCH ×3 (05:38→22:01)
[2021-02-21] MEDS: SYMBICORT 160/4.5MCG INHALER 6GM INH SCH ×2 (07:28→19:59)
[2021-02-21] MEDS ORDERED: CIPROFLOXACIN 400 MG in IV 1 EA IV SCH (07:35)
[2021-02-21] MEDS: ENOXAPARIN 80MG/0.8ML SYRINGE (J1650 PER 10MG) SC SCH ×2 (08:06→20:19)
[2021-02-21] MEDS: PIPERACILLIN/TAZOBACTAM SOD 4.5 GM in D5W MINI-BAG PLUS 50 ML IV SCH ×3 (08:06→20:17)
[2021-02-21] MEDS: MAG SULF 1GM/100ML (MAG RUN) 1 GM in IV 1 EA IV SCH ×2 (08:07→10:00)
[2021-02-21] MEDS: FILGRASTIM 300 MCG/0.5 ML SYRINGE (J1442 PER 1MCG) SC SCH (08:08)
[2021-02-21] MEDS: OMEPRAZOLE 20 MG CAP PO SCH ×2 (08:08→20:18)
[2021-02-21] MEDS: MULTIVITAMINS/MINERALS THERAP 1 TAB PO SCH (08:09)
[2021-02-21] MEDS: DOCUSATE SODIUM 100MG CAPSULE PO SCH ×2 (08:09→20:23)
[2021-02-21] MEDS: METOPROLOL TART 12.5 MG PER 1/2 TAB PO SCH ×2 (08:10→20:18)
[2021-02-21] MEDS: SODIUM CHLORIDE NASAL 0.65% SPRAY BTL (OCEAN) SCH ×3 (08:10→21:00)
--- NOTE | 2021-02-21 08:25 | REP ---
INDICATION: fever COMPARISON: 02/16/2021 TECHNIQUE: Portable AP view of the chest FINDINGS: Mediastinum is poorly evaluated due to extensive overlying fibrosis, but appears relatively stable including [id number] and dual lead pacemaker. The lung florentino demonstrate diffuse fibrosis and subtle superimposed acute process cannot be excluded although findings appear relatively stable. No definite effusion. No obvious pneumothorax. Postsurgical changes at the left perihilar region again noted. Skeletal structures are intact IMPRESSION: Diffuse chronic changes similar to prior examination. <Electronically signed by Shayne Correia > 02/21/21 1152
[2021-02-21] MEDS: VANCOMYCIN HCL 1,000 MG, VIAL MATE ADAPTER 1 EACH in NS 250 ML IV SCH ×2 (09:00→21:59)
[2021-02-21] MEDS ORDERED: VANCOMYCIN HCL 500 MG in D5W MINI-BAG PLUS 100 ML IV ONE (11:00)
--- NOTE | 2021-02-21 11:04 | IPNPDOC ---
Date Seen The patient was seen on 02/21/21. Progress Note SUBJECTIVE: Patient seen examined at bedside. Presently on 2 L of nasal cannula. No longer having any epistaxis. States spontaneously resolved once he arrived to the ER. Denies any chest pain shortness of breath palpitations fever chills. bilateral flank pain has resolved. No petechiae. OBJECTIVE PHYSICAL EXAMINATION: VITAL SIGNS: please see below General: NAD, comfortable HEENT: PERRLA, EOMI, sclerae clear, nasal cannula in place, no active bleeding from nares Neck: supple, normal ROM, no JVD Respiratory: Reduced air entry bilaterally poor inspiratory effort no wheeze or crackle CVS: RRR, normal S1, S2, no murmurs Abdo: soft, no masses, no hepatosplenomegaly, BS+, no rebound tenderness Extremities: no edema, pulses 2+ MSK: no joint deformities, normal ROM Neuro: no focal neuro deficits, moving all 4 extremities, CN2-12 intact. Strength 5/5 in all 4 extremities. No nystagmus. Psych: calm, cooperative, AAO x 3 LABORATORY DATA, IMAGING STUDIES, MICROBIOLOGY: Please see below. DVT prophylaxis ordered?: Teds, avoid chemoprophylaxis due to thrombocytopenia. Holding Xarelto. ASSESSMENT AND PLAN: This is a 75 y/o male with a pmh of a-fib s/p pacemaker placement on xarelto, hld, htn, copd, pulmonary fibrosis, recurrent lung ca s/p left upper lobectomy currently on chemo who reports to our ED on 02/16 with a cc of recurrent nosebleeds for the past 3 days. Patient states that along with his nosebleeds, he has been having increased weakness and dizziness, however this has been worsening over several weeks. Patient states that these symptoms have caused him to fall multiple times, and states that he believes he hit his head in one fall that happened several weeks ago. Patient was complaining of bilateral flank pain, UA showing streptococcus mitis. Developed neutropenic fever. Switched from ceftriaxone to vancomycin and zosyn. Presently on neupogen due to neutropenia. . PLAN: #Pancytopenia/epistaxis - d/w Dr. Diggs. patient was started on carboplatinum and gemcitabine, which is associated with high incidence of thrombocytopenia. - rare complication of gemcitabine, HUS. Check peripheral smear and LDH level. - LDH wnl x 2, not likely to be hemolyzing - PLT counts improved after 4 units of PLT. Now stable at 47. Per Dr. Diggs, goal is PLT of 40 prior to DC. - patient transfuse 2 units pRBC, Hgb 9.4. - d/w Dr. Mott from ENT. No need for direct exam at this time, as not actively bleeding. To f/u in clinic. - humidified O2, nasal saline spray. - resumed patient's anticoagulation in form of lovenox (takes xarelto at home), in event of need to reverse. - monitor for bleeding closely. #Concern for development of neutropenic fever - this morning patient T 100.2. - UA growing streptococcus mitis. - blood cultures prelim negative at 24 hours. - had 3 days of CTX. Converted to vanco and zosyn - CXR showing no obvious infiltrate. - ANC 850 on 02/20/21. - D/w Dr. Diggs - will start patient on neupogen until ANC reached [id number] #UTI - culture positive for streptococcus mitis - indeterminate sensitivity to ceftriaxone (received 3 days) - converted antibiotic therapy to vancomycin and zosyn in setting of neutropenia. # Weakness/dizziness/recurrent falls - Likely secondary to deconditioning from chemo, his slight anemia, and his chemo induced peripheral neuropathy. Less likely secondary to infxn - PT/OT ordered - continue gabapentin for neuropathy - patient will likely require placement to SNF # COPD - Patient not in acute exacerbation - Will continue supplemental o2 as patient wears 2L at home - Continue at home inhalers - continue guaifenesin # A-fib - Patient currently rate controlled and paced - will continue digoxin, metoprolol - will hold xarelto, but will resume patient on therapeutic lovenox. - patient is currently in a monitored setting, and lovenox can be stopped much more quickly than xarelto. # BPH - continue flomax #. GERD - continue omeprazole # HLD - continue simvastatin DVT prophylaxis - mechanical Dispo: PT recommending 23/01 care vs rehab. Most likely, patient will require care at a prison facility. VS, I&O, 24H, Fishbone Vital Signs/I&O Vital Signs Date Time Temp Pulse Resp B/P (MAP) Pulse Ox O2 Delivery O2 Flow Rate FiO2 02/21/21 08:10 68 127/64 02/21/21 06:58 100.1 18 97 Nasal Cannula 2.0 I&O- Last 24 Hours up to 6 AM 02/21/21 05:59 Intake Total 540 ml Output Total 1300 ml Balance -760 ml Laboratory Data 24H LABS Laboratory Tests 2 02/21/21 04:05: Neutrophils (%) (Auto) , Neutrophils # (Auto) , Nucleated Red Blood Cells % (auto) 0.0, Neutrophils 48, Band Neutrophils 6, Lymphocytes (Manual) 39, Monocytes (Manual) 5, Atypical Lymphocytes 2, Platelet Estimate MARKED DECREASE, Immature Platelet Fraction 5.3, Anion Gap 2L, Glomerular Filtration Rate > 60.0, Calcium Level 8.0L, Magnesium Level 1.7L CBC/BMP Laboratory Tests 02/21/21 04:05 Microbiology Microbiology 02/20/21 Blood Culture - Preliminary, Resulted No growth after 24 hours . All specim... 02/20/21 Blood Culture - Preliminary, Resulted No growth after 24 hours . All specim... 02/19/21 Urine Culture - Final, Complete Streptococcus Mitis EMIR SHANKS MD Feb 21, 2021 11:03
[2021-02-21] MEDS: TAMSULOSIN 0.4 MG CAP PO SCH (20:18)
[2021-02-21] MEDS: SIMVASTATIN 20 MG TAB PO SCH (20:18)
[2021-02-21] MEDS: GABAPENTIN 300 MG CAP PO SCH (20:18)
[2021-02-21] MEDS: DIGOXIN 0.25 MG TAB PO SCH (20:19)
[2021-02-21] MEDS: ACETAMINOPHEN TAB 650MG DOSE (2X325MG) PO PRN (23:59)
[2021-02-22] VITALS (7 sets, daily range): BP systolic 85–116; BP diastolic 46–60
[2021-02-22] MEDS: PIPERACILLIN/TAZOBACTAM SOD 4.5 GM in D5W MINI-BAG PLUS 50 ML IV SCH ×4 (02:32→20:21)
[2021-02-22] MEDS ORDERED: NS 1,000 ML IV ONE ×2 (03:30)
[2021-02-22] MEDS: SLF 3 ML SYR IV SCH ×3 (06:00→20:23)
[2021-02-22] MEDS: SYMBICORT 160/4.5MCG INHALER 6GM INH SCH ×2 (08:35→20:08)
[2021-02-22] MEDS ORDERED: FUROSEMIDE 20MG/2ML VIAL (J1940) IV ONE (09:00)
[2021-02-22] MEDS: METOPROLOL TART 12.5 MG PER 1/2 TAB PO SCH ×2 (09:00→20:19)
[2021-02-22] MEDS: VANCOMYCIN HCL 1,000 MG, VIAL MATE ADAPTER 1 EACH in NS 250 ML IV SCH ×2 (09:00→21:44)
[2021-02-22] MEDS: DOCUSATE SODIUM 100MG CAPSULE PO SCH ×2 (09:01→20:22)
[2021-02-22] MEDS: MULTIVITAMINS/MINERALS THERAP 1 TAB PO SCH (09:02)
[2021-02-22] MEDS: ENOXAPARIN 80MG/0.8ML SYRINGE (J1650 PER 10MG) SC SCH ×2 (09:02→20:21)
[2021-02-22] MEDS: OMEPRAZOLE 20 MG CAP PO SCH ×2 (09:02→20:20)
[2021-02-22] MEDS: SODIUM CHLORIDE NASAL 0.65% SPRAY BTL (OCEAN) SCH ×3 (09:03→20:23)
[2021-02-22 09:56] LABS: HEMATOCRIT 28.2 % (42.0-52.0); MEAN CORPUSCULAR HEMOGLOBIN 34.4 pg (27.0-33.0); MEAN CORPUSCULAR HGB CONC 35.5 g/dl (32.0-36.5); MEAN CORPUSCULAR VOLUME 96.9 fl (80.0-96.0); RED BLOOD COUNT 2.91 10^6/uL (4.30-6.10); WHITE BLOOD COUNT 1.8 10^3/uL (4.0-10.0)
[2021-02-22 10:18] LABS: PLATELET COUNT, AUTOMATED 77 10^3/uL (150-450)
[2021-02-22 10:19] LABS: ALBUMIN 2.1 GM/DL (3.2-5.2); ALT/SGPT 23 U/L (12-78); BILIRUBIN,TOTAL 0.7 MG/DL (0.2-1.0); BLOOD UREA NITROGEN 9 MG/DL (7-18); CALCIUM LEVEL 8.9 MG/DL (8.8-10.2); CARBON DIOXIDE LEVEL 28 MEQ/L (21-32); CHLORIDE LEVEL 106 MEQ/L (98-107); CREATININE FOR GFR 0.65 MG/DL (0.70-1.30); GLOMERULAR FILTRATION RATE > 60.0 (>42); GLUCOSE, FASTING 140 MG/DL (70-100); MAGNESIUM LEVEL 1.7 MG/DL (1.8-2.4); NT-PRO BNP 1918 PG/ML (<125); POTASSIUM SERUM 3.9 MEQ/L (3.5-5.1); SODIUM LEVEL 138 MEQ/L (136-145); VANCOMYCIN LEVEL TROUGH 9.4 UG/ML (10.0-20.0)
[2021-02-22 10:24] LABS: ATYPICAL LYMPH 1 % (0-5); EOSINOPHILS 1 % (0-3); LYMPHOCYTES 32 % (16-44); MONOCYTES 7 % (0-5); NEUTROPHILS 56 % (28-66); PLATELET ESTIMATE DECREASED (NORMAL)
[2021-02-22] MEDS: FILGRASTIM 300 MCG/0.5 ML SYRINGE (J1442 PER 1MCG) SC SCH (10:34)
--- NOTE | 2021-02-22 14:42 | IPNPDOC ---
Date Seen The patient was seen on 02/22/21. Progress Note SUBJECTIVE: Patient seen examined at bedside. Presently on 2 L of nasal cannula. Not having epistaxis. C/o small streak of blood in sputum. Afebrile overnight. OBJECTIVE PHYSICAL EXAMINATION: VITAL SIGNS: please see below General: NAD, comfortable HEENT: PERRLA, EOMI, sclerae clear, nasal cannula in place, no active bleeding from nares Neck: supple, normal ROM, no JVD Respiratory: Reduced air entry bilaterally poor inspiratory effort no wheeze or crackle CVS: RRR, normal S1, S2, no murmurs Abdo: soft, no masses, no hepatosplenomegaly, BS+, no rebound tenderness Extremities: no edema, pulses 2+ MSK: no joint deformities, normal ROM Neuro: no focal neuro deficits, moving all 4 extremities, CN2-12 intact. Strength 5/5 in all 4 extremities. No nystagmus. Psych: calm, cooperative, AAO x 3 LABORATORY DATA, IMAGING STUDIES, MICROBIOLOGY: Please see below. DVT prophylaxis ordered?: Teds, avoid chemoprophylaxis due to thrombocytopenia. Holding Xarelto. ASSESSMENT AND PLAN: This is a 75 y/o male with a pmh of a-fib s/p pacemaker placement on xarelto, hld, htn, copd, pulmonary fibrosis, recurrent lung ca s/p left upper lobectomy currently on chemo who reports to our ED on 02/16 with a cc of recurrent nosebleeds for the past 3 days. Patient states that along with his nosebleeds, he has been having increased weakness and dizziness, however this has been worsening over several weeks. Patient states that these symptoms have caused him to fall multiple times, and states that he believes he hit his head in one fall that happened several weeks ago. Patient was complaining of bila teral flank pain, UA showing streptococcus mitis. Developed neutropenic fever. Switched from ceftriaxone to vancomycin and zosyn. Presently on neupogen due to neutropenia. . PLAN: # Pancytopenia/epistaxis - d/w Dr. Diggs. patient was started on carboplatinum and gemcitabine, which is associated with high incidence of thrombocytopenia. - rare complication of gemcitabine, HUS. Check peripheral smear and LDH level. - LDH wnl x 2, not likely to be hemolyzing - PLT counts improved after 4 units of PLT. Now stable at 47. Per Dr. Diggs, goal is PLT of 40 prior to DC. - patient transfuse 2 units pRBC - d/w Dr. Mott from ENT. No need for direct exam at this time, as not actively bleeding. To f/u in clinic. - humidified O2, nasal saline spray. - resumed patient's anticoagulation in form of lovenox (takes xarelto at home), in event of need to reverse. - monitor for bleeding closely. Hgb trended up, stable at 10.0. #Neutropenic fever - UA growing streptococcus mitis. - blood cultures prelim negative at 48 hours. - S/p 3 days ceftriaxone - Day 2 Vancomycin - Day 2 zosyn. - CXR showing no obvious infiltrate. - D/w Dr. Diggs.will start patient on neupogen until ANC reached [id number] - ANC 850 on 02/20/21. ANC 1062 on 02/22/21 #fluid overload - s/p 2L NS overnight for low BP - patient has consistently trended SBP 85-100 on admission - will give 20 mg IV lasix. - check 2D echo. # UTI - culture positive for streptococcus mitis - indeterminate sensitivity to ceftriaxone (received 3 days) - converted antibiotic therapy to vancomycin and zosyn in setting of neutropenia. # Weakness/dizziness/recurrent falls - Likely secondary to deconditioning from chemo, his slight anemia, and his chemo induced peripheral neuropathy. Less likely secondary to infxn - PT/OT ordered - continue gabapentin for neuropathy - patient will likely require placement to SNF # COPD - Patient not in acute exacerbation - Will continue supplemental o2 as patient wears 2L at home - Continue at home inhalers - continue guaifenesin # A-fib - Patient currently rate controlled and paced - will continue digoxin, metoprolol - will hold xarelto, but will resume patient on therapeutic lovenox. - patient is currently in a monitored setting, and lovenox can be stopped much more quickly than xarelto. # BPH - continue flomax #. GERD - continue omeprazole # HLD - continue simvastatin DVT prophylaxis - mechanical Dispo: patient has significantly reduced mobility, plan is for family to provide care. Patient has mobility limitations that impairs his ability to participate in MRADLs (ie toileting), and prevents him from completing MRADLS within a reasonable timeframe. These limitations cannot be sufficiently resolved by use of a cane or walker. The patient's family's home provides adequate access between rooms, maneuvering space and surfaces to use of a manual wheelchair. The use of a wheelchair will significantly improve the patient's ability to perform/participate in MRADLs and he will use it in a regular basis in the home. The patient has not expressed an unwillingness to use the manual wheelchair. The patient has a carefiver who is available, willing, and able to provide assistance with the wheelchair. VS, I&O, 24H, Fishbone Vital Signs/I&O Vital Signs Date Time Temp Pulse Resp B/P (MAP) Pulse Ox O2 Delivery O2 Flow Rate FiO2 02/22/21 12:00 2.0 02/22/21 12:00 98.1 68 26 99/52 (68) 91 Nasal Cannula I&O- Last 24 Hours up to 6 AM 02/22/21 06:00 Intake Total 3750 ml Output Total 500 ml Balance 3250 ml Laboratory Data 24H LABS Laboratory Tests 2 02/22/21 09:41: Immature Granulocyte % (Auto) , Neutrophils (%) (Auto) , Neutrophils # (Auto) , Nucleated Red Blood Cells % (auto) 0.0, Neutrophils 56, Band Neutrophils 3, Lymphocytes (Manual) 32, Monocytes (Manual) 7H, Eosinophils (Manual) 1, Atypical Lymphocytes 1, Red Blood Cell Morphology NORMAL, Platelet Estimate DECREASED, Immature Platelet Fraction 7.1, Anion Gap 4L, Glomerular Filtration Rate > 60.0, Calcium Level 8.9, Magnesium Level 1.7L, Total Bilirubin 0.7, Aspartate Amino Transf (AST/SGOT) 13, Alanine Aminotransferase (ALT/SGPT) 23, Alkaline Phosph atase 106, WJ-Lxc-Q-Type Natriuretic Peptide 1918H, Total Protein 6.0L, Albumin 2.1L, Albumin/Globulin Ratio 0.5, Vancomycin Level Trough 9.4L CBC/BMP Laboratory Tests 02/22/21 09:41 Microbiology Microbiology 02/20/21 Blood Culture - Preliminary, Resulted No Growth after 48 hours. All Specime... 02/20/21 Blood Culture - Preliminary, Resulted No Growth after 48 hours. All Specime... 02/19/21 Urine Culture - Final, Complete Streptococcus Mitis EMIR SHANKS MD Feb 22, 2021 14:42
[2021-02-22] MEDS: MAG SULF 1GM/100ML (MAG RUN) 1 GM in IV 1 EA IV SCH ×2 (15:08→16:00)
[2021-02-22] MEDS: ACETAMINOPHEN TAB 650MG DOSE (2X325MG) PO PRN (15:09)
[2021-02-22] MEDS: DIGOXIN 0.25 MG TAB PO SCH (20:19)
[2021-02-22] MEDS: GABAPENTIN 300 MG CAP PO SCH (20:20)
[2021-02-22] MEDS: SIMVASTATIN 20 MG TAB PO SCH (20:20)
[2021-02-22] MEDS: TAMSULOSIN 0.4 MG CAP PO SCH (20:20)
[2021-02-22] MEDS ORDERED: KETOROLAC 30 MG/ML 1ML VIAL IV ONE (21:55)
[2021-02-22] MEDS ORDERED: PERCOCET 5MG/325MG TAB PO ONE (23:00)
[2021-02-23] VITALS (7 sets, daily range): BP systolic 104–122; BP diastolic 54–68
[2021-02-23] MEDS: PIPERACILLIN/TAZOBACTAM SOD 4.5 GM in D5W MINI-BAG PLUS 50 ML IV SCH ×3 (01:43→14:13)
[2021-02-23] MEDS: SLF 3 ML SYR IV SCH ×3 (05:05→22:00)
[2021-02-23] MEDS: SYMBICORT 160/4.5MCG INHALER 6GM INH SCH ×2 (08:11→19:40)
[2021-02-23 08:13] LABS: HEMATOCRIT 29.1 % (42.0-52.0); MEAN CORPUSCULAR HEMOGLOBIN 33.4 pg (27.0-33.0); MEAN CORPUSCULAR HGB CONC 34.4 g/dl (32.0-36.5); MEAN CORPUSCULAR VOLUME 97.3 fl (80.0-96.0); PLATELET COUNT, AUTOMATED 128 10^3/uL (150-450); RED BLOOD COUNT 2.99 10^6/uL (4.30-6.10); WHITE BLOOD COUNT 2.9 10^3/uL (4.0-10.0)
[2021-02-23] MEDS: ENOXAPARIN 80MG/0.8ML SYRINGE (J1650 PER 10MG) SC SCH (08:29)
[2021-02-23] MEDS: METOPROLOL TART 12.5 MG PER 1/2 TAB PO SCH ×2 (08:30→20:13)
[2021-02-23] MEDS: SODIUM CHLORIDE NASAL 0.65% SPRAY BTL (OCEAN) SCH ×3 (08:30→20:15)
[2021-02-23] MEDS: MULTIVITAMINS/MINERALS THERAP 1 TAB PO SCH (08:30)
[2021-02-23] MEDS: OMEPRAZOLE 20 MG CAP PO SCH ×2 (08:30→20:14)
[2021-02-23] MEDS: DOCUSATE SODIUM 100MG CAPSULE PO SCH ×2 (08:30→20:15)
[2021-02-23 08:34] LABS: BLOOD UREA NITROGEN 9 MG/DL (7-18); CALCIUM LEVEL 8.4 MG/DL (8.8-10.2); CARBON DIOXIDE LEVEL 30 MEQ/L (21-32); CHLORIDE LEVEL 104 MEQ/L (98-107); CREATININE FOR GFR 0.67 MG/DL (0.70-1.30); GLOMERULAR FILTRATION RATE > 60.0 (>42); GLUCOSE, FASTING 142 MG/DL (70-100); MAGNESIUM LEVEL 1.7 MG/DL (1.8-2.4); POTASSIUM SERUM 4.2 MEQ/L (3.5-5.1); SODIUM LEVEL 139 MEQ/L (136-145); VANCOMYCIN LEVEL TROUGH 10.9 UG/ML (10.0-20.0)
[2021-02-23 09:04] LABS: ATYPICAL LYMPH 5 % (0-5); EOSINOPHILS 1 % (0-3); HYPOCHROMASIA 1+; LYMPHOCYTES 15 % (16-44); MONOCYTES 17 % (0-5); MYELOCYTES 2 % (0-0); NEUTROPHILS 32 % (28-66); PLATELET ESTIMATE DECREASED (NORMAL)
[2021-02-23] MEDS: VANCOMYCIN HCL 1,000 MG, VIAL MATE ADAPTER 1 EACH in NS 250 ML IV SCH (09:22)
[2021-02-23] MEDS: FILGRASTIM 300 MCG/0.5 ML SYRINGE (J1442 PER 1MCG) SC SCH (09:23)
[2021-02-23] MEDS ORDERED: VANCOMYCIN HCL 500 MG in D5W MINI-BAG PLUS 100 ML IV ONE (11:00)
[2021-02-23] MEDS ORDERED: RIVAROXABAN 20 MG TAB (XARELTO) PO SCH (18:00)
--- NOTE | 2021-02-23 19:32 | IPNPDOC ---
Text Note Date of Service The patient was seen on 02/23/21. NOTE Subjective: No any acute events overnight. No fever for past 24 hours Objective: GENERAL APPEARANCE: NAD HEENT: no scleral icterus, no JVD, EOMI CARDIOVASCULAR: S1S2 LUNGS: Diminished lung sounds bilaterally ABDOMEN: soft & not tender w palpation MUSCULOSKELETAL: no cyanosis, no swelling INTEGUMENT: no generalized pallor NEUROLOGICAL: cranial nerve function from 2-12 intact, follows commands, speech not dysarthric Assessment and plan Patient is 75 years old male with past medical history of a-fib s/p pacemaker placement on xarelto, hld, htn, copd, pulmonary fibrosis, recurrent lung ca s/p left upper lobectomy currently on chemo who reports to our ED on 02/16 with a cc of recurrent nosebleeds for the past 3 days. Also patient developed neutropenic fever and he was found to have UTI with positive UA culture for Streptococcus mitis Pancytopenia/epistaxis Most likely secondary to chemotherapy Patient received 4 units of platelets and 2 units of PRBC Nosebleeding stopped Hemoglobin stable, platelets count improved Neutropenic fever I talked to Dr. Ni, he recommended to switch antibiotics to levofloxacin p.o. 750 mg for next 4 to 5 days. And he recommended 1 more injection of Neupogen White blood count and ANC improved. Fluid overload Patient euvolemic Resolved UTI UA showed Streptococcus mitis Continue treatment with levofloxacin p.o. Weakness/dizziness/recurrent falls PT/OT COPD Not in acute exacerbation Continue home meds Atrial fibrillation Will resume Xarelto Heart rate under control BPH continue Flomax GERD continue omeprazole HLD continue simvastatin DVT prophylaxis with Xarelto VS,Fishbone, I+O VS, Fishbone, I+O Laboratory Tests 02/23/21 07:57 Vital Signs Date Time Temp Pulse Resp B/P (MAP) Pulse Ox O2 Delivery O2 Flow Rate FiO2 02/23/21 16:00 2.0 02/23/21 16:00 99.7 87 20 114/60 (78) 94 Nasal Cannula I&O- Last 24 Hours up to 6 AM 02/23/21 06:00 Intake Total 1790 ml Output Total 2600 ml Balance -810 ml KAT BLANC DO Feb 23, 2021 19:32
[2021-02-23] MEDS: SIMVASTATIN 20 MG TAB PO SCH (20:13)
[2021-02-23] MEDS: DIGOXIN 0.25 MG TAB PO SCH (20:14)
[2021-02-23] MEDS: TAMSULOSIN 0.4 MG CAP PO SCH (20:14)
[2021-02-23] MEDS: GABAPENTIN 300 MG CAP PO SCH (20:14)
[2021-02-23] MEDS: ACETAMINOPHEN TAB 650MG DOSE (2X325MG) PO PRN (23:47)
[2021-02-24] VITALS (15 sets, daily range): BP systolic 86–113; BP diastolic 51–65; O2SAT 90–96
[2021-02-24 00:15] LABS: ABG BASE EXCESS 5.9 (-2.0-2.0); ABG HCO3 28.8 MEQ/L (22.0-26.0); ABG O2 SATURATION 93.4 % (95.0-99.0); ABG PARTIAL PRESSURE CO2 35.5 mmHg (35.0-45.0); ABG PARTIAL PRESSURE O2 63.3 mmHg (75.0-100.0); ABG STANDARD HCO3 29.7 MEQ/L (22.0-26.0); ABG TOTAL CO2 29.9 MEQ/L (23.0-31.0); ABG pH (ARTERIAL) 7.527 UNITS (7.350-7.450)
[2021-02-24 00:19] LABS: FIBRINOGEN 719 MG/DL (268-480); INR 2.44; PROTHROMBIN TIME 26.8 SECONDS (12.7-14.5)
[2021-02-24 00:38] LABS: C REACTIVE PROTEIN QUANTITATIV 13.4 MG/DL (0.00-0.30)
--- NOTE | 2021-02-24 00:42 | REPVR ---
PROCEDURE INFORMATION: Exam: XR Chest Exam date and time: 02/23/2021 11:55 PM Age: 75 years old Clinical indication: Other: Desat TECHNIQUE: Imaging protocol: XR of the chest. Views: 1 view. COMPARISON: CR PORTABLE CHEST X-RAY 02/21/2021 8:06 AM FINDINGS: Tubes, catheters and devices: The pacemaker and central line are unchanged in position. Lungs: There is extensive interstitial disease bilaterally more severe in the left lower lobe. There may be superimposed consolidation. The appearance is unchanged from the previous x-ray. Pleural spaces: Unremarkable. No pleural effusion. No pneumothorax. Heart/Mediastinum: Unremarkable. No cardiomegaly. Bones/joints: Unremarkable. IMPRESSION: Extensive bilateral interstitial lung disease which is most extensive in the left lower lobe. This could be chronic lung disease. There may be superimposed infection. No change from prior x-ray. Electronically signed by: Flip Carrizales On 02/24/2021 00:41:49 AM
[2021-02-24 01:02] LABS: D-DIMER QUANT > 4000.00 ng/ml (<500)
--- NOTE | 2021-02-24 01:44 | IPNPDOC ---
Text Note Date of Service The patient was seen on 02/23/21. NOTE Notified pt with acute desat episode. 84% from 94% on 6lNC. Pt seen at bedside, he had albuterol inhaler use which improved his SOB, but he is still using few words with his tachypnea. spo2 85-89%. Notable + rales coarse. mildly tachycardic 102. He does not appear hypervolemic. He has been on Xarelto. He has pna and interstitial lung disease. T101F, given tylenol. Plan for CXR, ABG, Nebulizer. BC x2 as pt pancytopenic with fever. Titrate oxygen to keep pt greater than 90%. Continuous pulse ox. Update: CXR unchanged. Pt s/p neb with improvement 94% HF. Plan for continued breathing treatments, antimucolytics. Sputum culture sent. Lactic 1.8. f/u culture and tailor abx accordingly. WCTM. VS,Fishbone, I+O VS, Fishbone, I+O Laboratory Tests 02/23/21 07:57 Vital Signs Date Time Temp Pulse Resp B/P (MAP) Pulse Ox O2 Delivery O2 Flow Rate FiO2 02/23/21 20:14 100 02/23/21 20:13 112/60 02/23/21 20:00 2.0 02/23/21 20:00 99.9 22 89 Nasal Cannula I&O- Last 24 Hours up to 6 AM 02/23/21 06:00 Intake Total 1790 ml Output Total 2600 ml Balance -810 ml ANJELICA HALE NP Feb 23, 2021 23:56
[2021-02-24 02:17] LABS: HEMATOCRIT 27.7 % (42.0-52.0); HEMOGLOBIN 9.7 g/dl (13.5-17.5); MEAN CORPUSCULAR HEMOGLOBIN 33.9 pg (27.0-33.0); MEAN CORPUSCULAR VOLUME 96.9 fl (80.0-96.0); PLATELET COUNT, AUTOMATED 154 10^3/uL (150-450); RED BLOOD COUNT 2.86 10^6/uL (4.30-6.10); WHITE BLOOD COUNT 6.9 10^3/uL (4.0-10.0)
[2021-02-24 02:39] LABS: ALT/SGPT 20 U/L (12-78); BILIRUBIN,TOTAL 0.7 MG/DL (0.2-1.0); BLOOD UREA NITROGEN 7 MG/DL (7-18); CALCIUM LEVEL 8.5 MG/DL (8.8-10.2); CARBON DIOXIDE LEVEL 28 MEQ/L (21-32); CHLORIDE LEVEL 102 MEQ/L (98-107); CREATININE FOR GFR 0.68 MG/DL (0.70-1.30); GLOMERULAR FILTRATION RATE > 60.0 (>42); GLUCOSE, FASTING 131 MG/DL (70-100); MAGNESIUM LEVEL 1.5 MG/DL (1.8-2.4); SODIUM LEVEL 135 MEQ/L (136-145); TOTAL PROTEIN 5.9 GM/DL (6.4-8.2)
[2021-02-24 02:41] LABS: ATYPICAL LYMPH 5 % (0-5); LYMPHOCYTES 12 % (16-44); MONOCYTES 18 % (0-5); MYELOCYTES 1 % (0-0); NEUTROPHILS 64 % (28-66); PLATELET ESTIMATE NORMAL (NORMAL); POLYCHROMASIA 1+
[2021-02-24 02:42] LABS: ANISOCYTOSIS 1+; POIKILOCYTOSIS 1+
[2021-02-24] MEDS ORDERED: LevoFLOXacin 750 MG TABLET PO SCH (06:00)
--- NOTE | 2021-02-24 06:04 | IPNPDOC ---
Text Note Date of Service The patient was seen on 02/24/21. NOTE Pt with another desat episode, responded to [facility]. Plan for ct scan given coagu lopathy and covid swab. Breathing treatment. Adjust care plan accordingly pend data. VS,Fishbone, I+O VS, Fishbone, I+O Laboratory Tests 02/23/21 07:57 02/24/21 02:00 Vital Signs Date Time Temp Pulse Resp B/P (MAP) Pulse Ox O2 Delivery O2 Flow Rate FiO2 02/24/21 04:00 99.7 99 24 97/56 (70) 90 High Flow Cannula 6.0 I&O- Last 24 Hours up to 6 AM 02/24/21 06:00 Intake Total 1240 ml Output Total 0 ml Balance 1240 ml Attending Note Attending Note Allergic to contrast. Will order stat V/Q scan instead. ANJELICA HALE NP Feb 24, 2021 06:04 JOSÉ NATONIO BUSTOS MD Feb 24, 2021 06:19
[2021-02-24 06:10] LABS: ABG pH (ARTERIAL) 7.493 UNITS (7.350-7.450)
[2021-02-24 06:11] LABS: ABG BASE EXCESS 3.4 (-2.0-2.0); ABG HCO3 26.7 MEQ/L (22.0-26.0); ABG O2 SATURATION 96.4 % (95.0-99.0); ABG PARTIAL PRESSURE CO2 35.6 mmHg (35.0-45.0); ABG PARTIAL PRESSURE O2 85.7 mmHg (75.0-100.0); ABG STANDARD HCO3 27.5 MEQ/L (22.0-26.0); ABG TOTAL CO2 27.8 MEQ/L (23.0-31.0)
[2021-02-24] MEDS: SLF 3 ML SYR IV SCH ×3 (06:38→22:44)
[2021-02-24] MEDS ORDERED: MAG SULF 1GM/100ML (MAG RUN) 1 GM in IV 1 EA IV ONE ×2 (07:00→08:00)
[2021-02-24 07:09] LABS: RSV AMPLIFICATION NEGATIVE (NEGATIVE)
--- NOTE | 2021-02-24 07:32 | ECHO ---
ECHOCARDIOGRAM DATE OF PROCEDURE: 02/23/2021 Age: Gender: M Height: 178 cm Weight: 71 kg REFERRING PHYSICIAN: Dr. Rex Camarillo INDICATION: Heart failure, unspecified MEASUREMENTS: 2D Measurements: LVOT: 1.9 cm Interventricular septum: 1.01 cm Posterior wall: 1. 01 cm Left ventricle diastole: 4.9 cm Left ventricle systole: 3.3 cm Aortic root: 3.8 cm Left atrium: 3.0 cm Left atrial volume index: 25 Proximal ascending aorta: 3.3 cm Right ventricle: 5.3 cm Doppler Measurements: No aortic stenosis No aortic regurgitation Aortic valve velocity (CW): 176 cm/s LVOT velocity: 136 cm/s LVOT VTI: 21.2 cm No mitral regurgitation No mitral stenosis Mitral E velocity (PW): 95.3 cm/s Mitral A velocity: 64.5 cm/s Mitral deceleration time: 215 m/s Moderate tricuspid regurgitation Estimated right ventricular systolic pressure: 52-57 mmHg Estimated right atrial pressure: 5-10 mmHg. Very mild to moderate regurgitation MITRAL ANNULAR TISSUE DOPPLER E prime septal: 15.5 cm/s DESCRIPTION: Rhythm appeared to be sinus. Image quality was fair. No pericardial effusion. This was a 2D, M-mode, color flow Doppler, and pulsed-wave Doppler examination including mitral annular tissue Doppler. CONCLUSIONS: 1. Suggestive of moderate elevation of estimated right ventricle systolic pressure (52-57 mmHg). Mild right ventricle dilatation with normal right ventricular (RV) systolic function. Right ventricle hypertrophy with prominent trabeculations and moderator band. Structurally normal-appearing tricuspid leaflets. Moderate tricuspid regurgitation. At least mild right atrial dilatation. 2. Suggestive of normal central venous pressure (CVP) (5-10 mmHg) at the time of this study. 3. Normal left ventricle internal dimensions and wall thickness. Normal regional left ventricle wall motion and wall thickening. Normal left ventricular (LV) systolic function. Left ventricular ejection fraction (LVEF) 60-65% by visual assessment. Normal left atrial volume index. Normal left ventricular (LV) diastolic function. 4. Mild aortic valve sclerosis of A3-cuspid aortic valve. No aortic regurgitation. 5. Mild dilatation of the aortic root at the level of the sinus Valsalva (3.8 cm). Proximal ascending aorta normal in diameter. 6. Presence of a cardiac rhythm property management intern coursing in the right atrium and into the right ventricle towards the right ventricle apex. 7. No pericardial effusion.
[2021-02-24] MEDS: SYMBICORT 160/4.5MCG INHALER 6GM INH SCH ×2 (07:36→20:00)
[2021-02-24] MEDS ORDERED: IPRATROPIUM 0.5MG/ALBUTEROL 2.5MG INH SOL UD 3ML (DUONEB) NEB PRN (07:55)
[2021-02-24] MEDS ORDERED: SODIUM CHLORIDE 0.9% 1000ML IV STA (08:03)
[2021-02-24] MEDS ORDERED: NS 1,000 ML IV ONE (08:30)
[2021-02-24 08:41] LABS: ABG BASE EXCESS 4.5 (-2.0-2.0); ABG HCO3 27.7 MEQ/L (22.0-26.0); ABG O2 SATURATION 89.9 % (95.0-99.0); ABG PARTIAL PRESSURE CO2 36.1 mmHg (35.0-45.0); ABG PARTIAL PRESSURE O2 54.4 mmHg (75.0-100.0); ABG STANDARD HCO3 28.4 MEQ/L (22.0-26.0); ABG TOTAL CO2 28.8 MEQ/L (23.0-31.0); ABG pH (ARTERIAL) 7.503 UNITS (7.350-7.450)
[2021-02-24] MEDS: SODIUM CHLORIDE NASAL 0.65% SPRAY BTL (OCEAN) SCH ×3 (09:00→20:26)
[2021-02-24] MEDS ORDERED: FUROSEMIDE 40MG/4ML VIAL (J1940) IV SCH (09:00)
[2021-02-24] MEDS ORDERED: VANCOMYCIN HCL 1,000 MG, VIAL MATE ADAPTER 1 EACH in NS 250 ML IV SCH (10:00)
[2021-02-24] MEDS: OMEPRAZOLE 20 MG CAP PO SCH ×2 (10:07→20:24)
[2021-02-24] MEDS: guaiFENesin ER 600 MG TAB PO SCH ×2 (10:07→20:25)
[2021-02-24] MEDS: METOPROLOL TART 12.5 MG PER 1/2 TAB PO SCH ×2 (10:07→20:22)
[2021-02-24] MEDS: PIPERACILLIN/TAZOBACTAM SOD 4.5 GM in D5W MINI-BAG PLUS 50 ML IV SCH ×3 (10:09→20:28)
[2021-02-24] MEDS: DOCUSATE SODIUM 100MG CAPSULE PO SCH ×2 (10:38→20:24)
[2021-02-24] MEDS: MULTIVITAMINS/MINERALS THERAP 1 TAB PO SCH (10:38)
[2021-02-24] MEDS: ACETAMINOPHEN TAB 650MG DOSE (2X325MG) PO PRN (10:40)
[2021-02-24] MEDS ORDERED: FUROSEMIDE 20MG/2ML VIAL (J1940) IV ONE (11:15)
[2021-02-24] MEDS ORDERED: predniSONE 20 MG TAB PO SCH (11:30)
[2021-02-24] MEDS: VANCOMYCIN HCL 750 MG, VIAL MATE ADAPTER 1 EACH in NS 250 ML IV SCH ×2 (12:00→17:54)
[2021-02-24] MEDS: FILGRASTIM 300 MCG/0.5 ML SYRINGE (J1442 PER 1MCG) SC SCH (12:00)
--- NOTE | 2021-02-24 12:50 | IPNPDOC ---
Text Note Date of Service The patient was seen on 02/24/21. NOTE Subjective: Patient developed hypoxia with hypotension, overnight and fever. His oxygen requirements increased to 15 L of nonrebreather. Patient reported sputum with small amount of blood. I discussed with patient CODE STATUS and he decided to continue full code Objective: GENERAL APPEARANCE: Ill looking man with labored breathing HEENT: no scleral icterus, plus JVD, EOMI CARDIOVASCULAR: S1S2 LUNGS: Coarse lung sounds bilaterally with crackles over right lung ABDOMEN: soft & not tender w palpation MUSCULOSKELETAL: no cyanosis, no swelling INTEGUMENT: no generalized pallor NEUROLOGICAL: cranial nerve function from 2-12 intact, follows commands, speech not dysarthric Assessment and plan Patient is 75 years old male with past medical history of a-fib s/p pacemaker placement on xarelto, hld, htn, copd, pulmonary fibrosis, recurrent lung ca s/p left upper lobectomy currently on chemo who reports to our ED on 02/16 with a cc of recurrent nosebleeds for the past 3 days. Also patient developed neutropenic fever and he was found to have UTI with positive UA culture for Streptococcus mitis Acute hypoxemic respiratory failure/sepsis ABG shows respiratory acidosis Most likely secondary to aspiration. Patient was on the full dose anticoagulation with Lovenox and yesterday restarted p.o. Xarelto. Unlikely patient developed PE Dr Carrillo recommended Vapotherm and Lasix 20 mg IV and stop the fluid I changed levofloxacin p.o. to vancomycin IV and Zosyn IV given sepsis presentation fever, tachycardia, hypotension Blood culture was repeated overnight Patient received 1 L bolus of normal saline. Due to right lung crackles and elevated BNP Dr Carrillo rec fluid only if patient will be hypotensive 02/24/21 chest XR shows Extensive bilateral interstitial lung disease which is most extensive in the left lower lobe. This could be chronic lung disease. 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 Life expectancy less than 1 year Palliative care consult appreciated Follow-up with oncologist in the outpatient settings Pancytopenia/epistaxis Most likely secondary to chemotherapy Patient received 4 units of platelets and 2 units of PRBC Nonbleeding stopped Hemoglobin stable, platelets count improved Neutropenic fever Patient developed fever overnight and in the morning Restarted broad-spectrum antibiotics Acute diastolic CHF Secondary to volume overload Due to sepsis presentation we will give only 20 mg IV Lasix UTI UA showed Streptococcus mitis Continue broad-spectrum antibiotics Weakness/dizziness/recurrent falls PT/OT COPD Started prednisone 40 mg p.o. Added DuoNeb [id number] Atrial fibrillation Full dose of Lovenox Heart rate under control BPH continue Flomax GERD continue omeprazole HLD continue simvastatin DVT prophylaxis with Lovenox VS,Fishbone, I+O VS, Fishbone, I+O Laboratory Tests 02/24/21 02:00 Vital Signs Date Time Temp Pulse Resp B/P (MAP) Pulse Ox O2 Delivery O2 Flow Rate FiO2 02/24/21 11:19 99.8 91 28 96/58 (71) 94 HVNI-Vapotherm 02/24/21 10:45 40.0 100 I&O- Last 24 Hours up to 6 AM 02/24/21 05:59 Intake Total 1240 ml Output Total 0 ml Balance 1240 ml KAT BLANC DO Feb 24, 2021 12:50
[2021-02-24] MEDS: SODIUM CHLORIDE 0.9% 3ML NEB SOLUTION FOR INHALATION INH SCH ×2 (14:00→20:32)
[2021-02-24] MEDS: IPRATROPIUM 0.5MG/ALBUTEROL 2.5MG INH SOL UD 3ML (DUONEB) NEB SCH ×2 (14:26→20:32)
[2021-02-24] MEDS ORDERED: NS 500 ML IV ONE (14:35)
[2021-02-24] MEDS: ENOXAPARIN 80MG/0.8ML SYRINGE (J1650 PER 10MG) SC SCH (17:55)
[2021-02-24] MEDS: TAMSULOSIN 0.4 MG CAP PO SCH (20:23)
[2021-02-24] MEDS: DIGOXIN 0.25 MG TAB PO SCH (20:23)
[2021-02-24] MEDS: GABAPENTIN 300 MG CAP PO SCH (20:24)
[2021-02-24] MEDS: SIMVASTATIN 20 MG TAB PO SCH (20:24)
[2021-02-24 21:06] LABS: BLOOD UREA NITROGEN 8 MG/DL (7-18); CALCIUM LEVEL 8.1 MG/DL (8.8-10.2); CARBON DIOXIDE LEVEL 26 MEQ/L (21-32); CHLORIDE LEVEL 100 MEQ/L (98-107); GLOMERULAR FILTRATION RATE > 60.0 (>42); GLUCOSE, FASTING 264 MG/DL (70-100); POTASSIUM SERUM 3.9 MEQ/L (3.5-5.1); SODIUM LEVEL 134 MEQ/L (136-145)
[2021-02-25] VITALS (24 sets, daily range): BP systolic 41–178; BP diastolic 18–108
[2021-02-25] MEDS: IPRATROPIUM 0.5MG/ALBUTEROL 2.5MG INH SOL UD 3ML (DUONEB) NEB SCH ×2 (02:15→07:27)
[2021-02-25] MEDS: SODIUM CHLORIDE 0.9% 3ML NEB SOLUTION FOR INHALATION INH SCH (02:15)
[2021-02-25] MEDS: VANCOMYCIN HCL 750 MG, VIAL MATE ADAPTER 1 EACH in NS 250 ML IV SCH (02:48)
[2021-02-25] MEDS: PIPERACILLIN/TAZOBACTAM SOD 4.5 GM in D5W MINI-BAG PLUS 50 ML IV SCH (04:30)
[2021-02-25] MEDS ORDERED: NS 250 ML IV SCH ×2 (04:55→05:15)
[2021-02-25 05:33] LABS: HEMATOCRIT 31.5 % (42.0-52.0); HEMOGLOBIN 10.8 g/dl (13.5-17.5); MEAN CORPUSCULAR HEMOGLOBIN 34.2 pg (27.0-33.0); MEAN CORPUSCULAR HGB CONC 34.3 g/dl (32.0-36.5); MEAN CORPUSCULAR VOLUME 99.7 fl (80.0-96.0); PLATELET COUNT, AUTOMATED 183 10^3/uL (150-450); RED BLOOD COUNT 3.16 10^6/uL (4.30-6.10)
[2021-02-25 05:36] LABS: WHITE BLOOD COUNT 17.7 10^3/uL (4.0-10.0)
[2021-02-25 05:54] LABS: ANISOCYTOSIS 1+; LYMPHOCYTES 7 % (16-44); MONOCYTES 10 % (0-5); MYELOCYTES 1 % (0-0); NEUTROPHILS 74 % (28-66); PLATELET ESTIMATE NORMAL (NORMAL)
[2021-02-25] MEDS: ENOXAPARIN 80MG/0.8ML SYRINGE (J1650 PER 10MG) SC SCH (05:54)
[2021-02-25 05:55] LABS: POLYCHROMASIA 1+
[2021-02-25] MEDS: SLF 3 ML SYR IV SCH (05:55)
[2021-02-25 05:56] LABS: BLOOD UREA NITROGEN 7 MG/DL (7-18); CREATININE FOR GFR 0.71 MG/DL (0.70-1.30); GLUCOSE, FASTING 121 MG/DL (70-100)
[2021-02-25 05:57] LABS: ALT/SGPT 23 U/L (12-78); BILIRUBIN,TOTAL 0.7 MG/DL (0.2-1.0); CARBON DIOXIDE LEVEL 32 MEQ/L (21-32); CHLORIDE LEVEL 102 MEQ/L (98-107); GLOMERULAR FILTRATION RATE > 60.0 (>42); MAGNESIUM LEVEL 1.9 MG/DL (1.8-2.4); POTASSIUM SERUM 3.9 MEQ/L (3.5-5.1); SODIUM LEVEL 137 MEQ/L (136-145); TOTAL PROTEIN 6.4 GM/DL (6.4-8.2)
[2021-02-25] MEDS: SYMBICORT 160/4.5MCG INHALER 6GM INH SCH (07:27)
[2021-02-25] MEDS: METOPROLOL TART 12.5 MG PER 1/2 TAB PO SCH (08:14)
[2021-02-25 08:42] LABS: ABG BASE EXCESS 4.2 (-2.0-2.0); ABG HCO3 26.8 MEQ/L (22.0-26.0); ABG O2 SATURATION 92.5 % (95.0-99.0); ABG PARTIAL PRESSURE O2 62.9 mmHg (75.0-100.0); ABG STANDARD HCO3 28.1 MEQ/L (22.0-26.0); ABG TOTAL CO2 27.8 MEQ/L (23.0-31.0); ABG pH (ARTERIAL) 7.527 UNITS (7.350-7.450)
[2021-02-25] MEDS ORDERED: NOREPINEPHRINE BITARTRATE 8 MG in D5W 492 ML IV SCH ×3 (08:55→10:00)
--- NOTE | 2021-02-25 09:00 | REP ---
INDICATION: hypoxia. COMPARISON: Comparison radiographs 02/23/2021 and 02/21/2021. TECHNIQUE: Portable upright AP chest radiograph. FINDINGS: Extensive interstitial infiltrates are seen almost diffusely in the lung florentino with some sparing in the left upper lobe region unchanged from the recent prior study. A right-sided Vedyyb-[id number]-[id number] catheter is noted and a bipolar pacemaker is seen in place. Cardiomegaly is again observed. There are mediastinal clips on the left. IMPRESSION: Extensive pulmonary parenchymal consolidation bilaterally unchanged. <Electronically signed by Rosendo Spaulding > 02/25/21 [id number]
[2021-02-25] MEDS ORDERED: ETOMIDATE INJ 20MG/10ML VIAL As Ordered ONE (09:33)
[2021-02-25] MEDS ORDERED: SUCCINYLCHOLINE INJ 200 MG/10 ML VIAL (J0330) As Ordered ONE (09:34)
[2021-02-25] MEDS ORDERED: ETOMIDATE INJ 20MG/10ML VIAL IV STA (10:01)
[2021-02-25] MEDS ORDERED: SUCCINYLCHOLINE INJ 200 MG/10 ML VIAL (J0330) IV STA (10:03)
[2021-02-25] MEDS ORDERED: MIDAZOLAM INJ 2MG/2ML VIAL (J2250 PER 1MG) As Ordered ONE ×3 (10:11→10:40)
[2021-02-25] MEDS ORDERED: PROPOFOL 1,000 MG/100 ML VIAL As Ordered ONE (10:11)
[2021-02-25] MEDS ORDERED: MIDAZOLAM INJ 2MG/2ML VIAL (J2250 PER 1MG) IV STA ×2 (10:13→10:35)
[2021-02-25] MEDS ORDERED: propofoL 1,000 MG in IV 1 EA IV SCH (10:15)
[2021-02-25] MEDS ORDERED: propofoL 200 MG/20 ML VIAL IV ONE (10:22)
--- NOTE | 2021-02-25 10:30 | REP ---
INDICATION: s/p intubation COMPARISON: 02/25/2021 TECHNIQUE: Portable AP view of the chest FINDINGS: Endotracheal tube 2 cm above the rhoda. Nasogastric tube side port above the diaphragm and warrants advancement. [id number] with tip in the SVC/right atrium remains stable. Diffuse advanced bilateral fibrosis and emphysematous disease again noted with superimposed multifocal infiltrates and suspected layering effusions. IMPRESSION: 1. Endotracheal tube and nasogastric tube as described above may warrant re-evaluation and repositioning. 2. Advanced chronic changes with superimposed airspace disease and possible layering effusions. <Electronically signed by Shayne Correia > 02/25/21 1028
[2021-02-25] MEDS ORDERED: ROCURONIUM BROMIDE 50 MG/5 ML VIAL As Ordered ONE (10:39)
[2021-02-25] MEDS ORDERED: ROCURONIUM BROMIDE 50 MG/5 ML VIAL IV STA (10:41)
[2021-02-25] MEDS ORDERED: NS 1,000 ML IV STA (10:42)
[2021-02-25] MEDS ORDERED: EPINEPHrine INJ 1 MG/ML 1ML AMP As Ordered ONE (10:45)
[2021-02-25] MEDS ORDERED: VASOPRESSIN INJ 20 UNITS/ML VIAL As Ordered ONE (10:46)
[2021-02-25] MEDS ORDERED: VASOPRESSIN INJ 20 UNITS in NS 499 ML IV SCH (10:53)
[2021-02-25] MEDS ORDERED: MORPHINE 2 MG/ML 1ML VIAL (J2270) As Ordered ONE (11:53)
[2021-02-25] MEDS ORDERED: EPINEPHrine 1MG/10ML SYRINGE 1.5IN ONE (11:59)
[2021-02-25] MEDS ORDERED: SODIUM BICARBONATE 8.4% INJ 50 ML SYRINGE ONE (11:59)
[2021-02-25] MEDS ORDERED: MORPHINE 2 MG/ML 1ML VIAL (J2270) IV ONE (13:55)
--- NOTE | 2021-02-25 16:48 | CR ---
PULMONARY CONSULTATION DATE: 02/24/2021 CHIEF COMPLAINT: Dyspnea and hypoxic respiratory failure. HISTORY OF PRESENT ILLNESS: Mr. Alejandra is a 75-year-old male with a past medical history of atrial fibrillation status post pacemaker on anticoagulation, hypertension, hyperlipidemia, COPD, pulmonary fibrosis with a history of chronic hypoxemic respiratory failure on nasal cannula oxygen supplementation. 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 The patient was reporting episodes of nosebleeds for several days previously to coming to the hospital, as well as complaints of dizziness and weakness with some episodes of falling as well. The patient had been having more difficulty as well performing his usual ADLs as he lives alone. On admission the patient was found to be pancytopenic, particularly with neutropenia as well as significant thrombocytopenia. He was on Gemcitabine and Carboplatin chemotherapy which was thought to be the cause of his pancytopenia. He was also on anticoagulation as an outpatient, contributing to his bleeding with his thrombocytopenia. He was transfused with PRBC and platelets with improvement. He was also started on Neupogen for his neutropenia, with improvement. The patient then developed fever during his hospitalization with concerns for possible pneumonia. He was initially on Ceftriaxone for a urinary tract infection on admission, however with fever and neutropenia, was then started on broad spectrum antibiotics with Vancomycin and Zosyn on 02/21/21. The patient initially had improvement in his fever curve. He also had improvement in his neutropenia. The patient was then changed from Vancomycin and Zosyn to Levaquin. He did also have some episodes with lower blood pressure, although had been asymptomatic. He was given IV fluid boluses as well as p.r.n. Lasix. The patient was noted yesterday to have increasing oxygen requirements throughout the day. He had previously been on 2 nasal cannula supplementation. He then throughout the course of the day had been going up on his oxygen requirements, so he was up to 6 liters nasal cannula overnight. He was reporting worsening shortness of breath and dyspnea. He did also have a fever noted overnight with a T-max of 101.1. The patient was given Tylenol as well as further nebulizer treatments. He did notice some improvement with nebulizer in his shortness of breath. The patient had worsening dyspnea this morning and worsening hypoxia. He was noted to have increased tachypnea and work of breathing and was placed on a non-rebreather. This morning the patient reports that he has had worsening shortness of breath compared to his initial presentation. He continues to have cough and mucous production and has been reporting episodes of intermittent hemoptysis since his admission here which he describes as occasional episodes of nickel sized or dime sized bloody sputum. He has other episodes where he has more dark colored brown sputum as well. He has not had any further episodes of nosebleeds with the improvement in his thrombocytopenia. He denies any chest pain currently. He has not noticed any chills but did report the fever overnight. He does have some abdominal pain which he reports as some abdominal discomfort and tenderness more in the epigastric region. He has not had any significant diarrhea. No nausea or vomiting. He has not noticed any significant lower extremity edema, although he states he may have had some slight swelling in his ankles the other day. PAST MEDICAL HISTORY: The patient's past medical history is significant for: Chronic obstructive pulmonary disease. Pulmonary fibrosis. Chronic hypoxemic respiratory failure on nasal cannula oxygen supplementation. Ongoing nicotine dependence. History of prior non-small cell carcinoma status post left upper lobectomy with recurrent disease noted now in the right lung with squamous cell carcinoma, on chemotherapy. Atrial fibrillation on anticoagulation, status post pacemaker placement. PAST SURGICAL HISTORY: The patient's past surgical history is significant for: Tonsillectomy. Discectomy. Sinus surgery. FAMILY HISTORY: Father with history of diabetes, carcinoma and chronic obstructive pulmonary disease. Mother with a history of hypertension. SOCIAL HISTORY: Current active smoker. Previously was one pack per day since age 17 and has cut down to three or four cigarettes a day. The patient lives alone. HOME MEDICATIONS: Albuterol nebulized p.r.n. Symbicort. Digoxin. Metoprolol. Omeprazole. Simvastatin. Xarelto. Gabapentin. Multivitamin. Flomax. Mucinex p.r.n. ALLERGIES: Aspirin. Contrast media. Perfumes. PHYSICAL EXAMINATION: VITAL SIGNS: T-max is 101.1, pulse is 99, respirations 24, blood pressure was 113/55, O2 was 100% on non-rebreather. INTAKE AND OUTPUT: In's 1.2 liters, out 650 mL. GENERAL APPEARANCE: The patient is a frail, chronically ill appearing elderly male who is sitting in bed with some mild respiratory distress. The patient is tachypneic with some respiratory muscle accessory use with respirations. He is speaking in short phrases. HEENT: Normocephalic and atraumatic. Some dry oral mucous membranes. NECK: Supple. Trachea is midline. No palpable cervical adenopathy. There is a right chemo port palpated. CARDIAC: Irregularly irregular, normal S1, S2 with loud closure sound and a possible faint murmur. PULMONARY: There is mildly prolonged expiration noted. There are crackles noted bilaterally, more at the bases with also coarse rhonchorous breath sounds noted bilaterally. There is no significant wheezing noted. ABDOMEN: Soft, mildly tender to palpation in the epigastric region but no rebound or guarding and no palpable masses. EXTREMITIES: No significant pitting lower extremity edema bilaterally. Mild clubbing noted LABORATORY STUDIES: WBC 6.9, hemoglobin is 9.7, platelet count 154. Chemistries - sodium is 135, potassium is 4.0, chloride is 102, bicarbonate is 28, BUN 7, creatinine 0.68, glucose is 131, lactic acid is 1.9, magnesium is 1.5, ferratin is 1278, CRP increased to 13.4, BNP increased from 1918 to 3914, D-dimer is above 4,000. INR is 2.44. Fibrinogen is 719. ABG: PH 7.5, pco2 of 38.1, pO2 of 59.4. Microbiology urine culture on 02/19 positive for strep midis. Blood cultures from 02/20 no growth to date. IMAGING: Chest x-ray from 02/23/21 shows evidence of chronic fibrotic interstitial lung disease. Compared to the previous chest x-ray from 02/16, there are increased areas of interstitial opacities and infiltrate in the right lower lobe and the right upper lobe as well as in the left upper lobe. There is more chronic interstitial disease in the left lower lobe. There is pacemaker and chemo port in place. Compared to the chest x-ray from 02/21, there is no significant change, questionable increase in some interstitial markings. CT chest from 02/16/21 there is a right upper lobe spiculated nodule measuring 2.1 cm in size. There is status post left upper lobectomy. There are extensive chronic interstitial changes noted with peripheral predominance in the upper lobes but more severe in the bibasilar regions. There is some increased interlobular septal thickening and some ground glass in the lower lobes bilaterally which is unchanged compared to previous. There is some chronic pleural thickening in the posterior portion of the right lower lobe with some consolidation which was seen on the previous CT in December and is unchanged. Compared to older imaging and older CT from 2019, there appears to be some progression in the fibrosis, particularly in the right sided fibrotic disease. There is coronary artery calcification. There is a small hiatal hernia noted. There is no significant mediastinal adenopathy. Echo 02/22/21 - normal EF and normal diastolic dysfunction. There is mild RV dilation with normal RV function. There is moderate RV systolic pressure elevation at 52 and 57 mmHg. There is RV hypertrophy. ASSESSMENT AND PLAN: Mr. Alejandra is a 75-year-old male with a past medical history of chronic obstructive pulmonary disease, pulmonary fibrosis, history of chronic hypoxemic respiratory failure on nasal cannula oxygen supplementation, history of ongoing nicotine dependence, history of lung cancer, status post left upper lobectomy with recurrent disease now in the right, on chemotherapy, atrial fibrillation, status post pacemaker, on anticoagulation, hypertension, hyperlipidemia, who presented with initially complaints of nosebleeds. The patient was also found initially to be pancytopenic, in particular with severe thrombocytopenia and neutropenia, thought to be secondary to chemotherapy. He was given transfusion with platelets and PRVCs with improvement. The patient was also given Neupogen with improvement in his neutropenia. On admission he was treated with Ceftriaxone for UTI. He developed fever after being treated with Ceftriaxone and was then started on Vancomycin and Zosyn for broad spectrum antibiotics. He was deescalated to Levaquin, however in the past 24 hours the patient has had worsening hypoxia as well as development of fever overnight. 1. Lmcay-lo-lcyromg hypoxemic respiratory failure chest x-ray yesterday evening did not show any significant change compared to a chest x-ray from the with perhaps only questionable subtle increased interstitial markings. However compared to his initial chest x-ray from 02/16, there was significant increasing infiltrates noted in the right lower lobe, right upper lobe and in the left upper lobe compared to his initial chest x-ray. With his fever as well as with his cough and hemoptysis, suspect pneumonia contributing to his worsening hypoxia and respiratory distress. - The patient will be broadened to Vancomycin and Zosyn again given his neutropenia. We will follow up his repeat sputum culture and blood culture. He is at risk for other organisms such as fungal organisms given his neutropenia, but will await results of his sputum culture. If he does not have clinical improvement with broad spectrum antibiotics, we would consider adding empiric anti-fungal agent then. - His procalcitonin was elevated. We will continue to trend. We will also check galactomannan and beta D glucan for fungal pneumonia. - We will continue with oxygen supplementation. 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 He does have significant rhonchi and secretions which are likely also contributing to his hypoxia with episodes of mucous plugging and perhaps aspiration. He does notice some occasional coughing and choking when eating as well. - Would make the patient n.p.o. and with aspiration precautions and head of bed elevation for now. - We will also start him on nebulized bronchodilators around the clock with hypertonic saline and acapella device for mucous clearance. We will continue with Mucinex as well. - The patient was given one liter normal saline this morning with his fever. He has normal lactic acid and while he does have infection, would be cautious about further fluid administration. His echo on admission did show evidence of at least moderate pulmonary hypertension and he was noted to have increased BNP from admission. With his pulmonary hypertension in particular, would be somewhat cautious about further fluid administration. 2. Pulmonary hypertension with history of atrial fibrillation on anticoagulation and possible pulmonary edema. The patient's acute decompensation may also have a degree of pulmonary edema contributing, particularly with his increased BNP and recent fluid administration, specifically given his pulmonary hypertension. With pulmonary hypertension, tachycardia, hypoxia and sepsis can also contribute to acute decompensation as well. Would hold off further fluids and will give low dose of diuretic, 20 mg IV Lasix and monitor his blood pressure and in's and out's closely. The patient does need aggressive rate control. Currently appears to be controlled with Metoprolol. The patient is on Xarelto for anticoagulation. With his hemoptysis, likely in the setting of pneumonia would discontinue Xarelto and place on Lovenox instead for more rapid ease of reversibility if he has worsening hemoptysis. The patient will therefore be on Lovenox one mg per kg twice daily for anticoagulation. His thrombocytopenia has improved. Will monitor for worsening hemoptysis and need for holding anticoagulation The patient was ordered for a VQ scan, however he has been on anticoagulation throughout and with his abnormal chest x-ray a VQ scan would not be diagnostic. also PE is unlikely in differential cause of hypoxia given worsening opacities on imaging 3. History of chronic obstructive pulmonary disease and pulmonary fibrosis with ongoing Nicotine dependence. We will continue with his home inhalers. He does have a history of pulmonary fibrosis with unclear workup in the past. Given his history, there is a potential that he may have an acute exacerbation as well as perhaps his underlying interstitial lung disease secondary to his acute infection, and so we will start corticosteroids of Prednisone 40 mg daily. Continue with the nebulized bronchodilators as discussed previous and with mucous clearance techniques. Continue with the Vapotherm and wean down settings entirely to making 02 sat above 88%. GI Prophylaxis Omeprazole. Code Status after extensive discussion with the patient, as well as with his family members, he is a full code although he does understand with his underlying lung disease, malignancy and cardiac history particularly pulmonary hypertension there is a poor prognosis if he were to require intubation and mechanical ventilation. CAMILA
--- NOTE | 2021-02-25 17:16 | DS.PDOC ---
Discharge Summary General Date of Admission Feb 16, 2021 at 22:17 Date of Discharge 02/25/21 Discharge Summary PROCEDURES PERFORMED DURING STAY: Endotracheal intubation ADMITTING DIAGNOSES: Acute hypoxemic respiratory failure/sepsis Recurrent lung cancer Pancytopenia/epistaxis Neutropenic fever Acute diastolic CHF UTI Weakness/dizziness/recurrent falls COPD Atrial fibrillation BPH GERD HLD DISCHARGE DIAGNOSES: Cardiac arrest Acute hypoxemic respiratory failure/sepsis Recurrent lung cancer Pancytopenia/epistaxis Neutropenic fever Acute diastolic CHF UTI Weakness/dizziness/recurrent falls COPD Atrial fibrillation BPH GERD HLD COMPLICATIONS/CHIEF COMPLAINT: Pancytopenia, Weakness. HISTORY OF PRESENT ILLNESS: Patient is 75 years old male with past medical history of a-fib s/p pacemaker placement on xarelto, hld, htn, copd, pulmonary fibrosis, recurrent lung ca s/p left upper lobectomy currently on chemo who reports to our ED on 02/16 with a cc of recurrent nosebleeds for the past 3 days. Also patient developed neutropenic fever and he was found to have UTI with positive UA culture for Streptococcus mitis HOSPITAL COURSE: During the hospital stay patient was treated with broad- spectrum antibiotics for neutropenic fever, yesterday patient developed acute respiratory failure required treatment with Vapotherm 40 L with 100% of oxygen. Today patient oxygen requirements increased, he developed labored breathing he was intubated. During intubation patient developed cardiac arrest. Around 12 noon patient DISCHARGE MEDICATIONS: Please see below. ALLERGIES: Please see below. PHYSICAL EXAMINATION ON DISCHARGE: VITAL SIGNS: Please see below. GENERAL: HEENT: NECK: CARDIOVASCULAR EXAMINATION: RESPIRATORY EXAMINATION: ABDOMINAL EXAMINATION: EXTREMITIES: SKIN: NEUROLOGICAL EXAMINATION: PSYCHIATRIC EXAMINATION: LABORATORY DATA: Please see below. IMAGING: PROGNOSIS: ACTIVITY: [As tolerated]. DIET: DISCHARGE PLAN: DISPOSITION: 20 . DISCHARGE INSTRUCTIONS: 1. . ITEMS TO FOLLOWUP ON ON OUTPATIENT: 1. . DISCHARGE CONDITION: [Stable]. TIME SPENT ON DISCHARGE: minutes. Vital Signs/I&Os Vital Signs Date Time Temp Pulse Resp B/P (MAP) Pulse Ox O2 Delivery O2 Flow Rate FiO2 02/25/21 11:14 115 72/45 (54) 49 Ventilator 100 02/25/21 10:04 40.0 02/25/21 10:00 36 02/25/21 07:01 99.8 I&O- Last 24 Hours up to 6 AM 02/25/21 06:00 Intake Total 2300 ml Output Total 2025 ml Balance 275 ml Laboratory Data Labs 24H Laboratory Tests 2 02/24/21 19:47: Anion Gap 8, Glomerular Filtration Rate > 60.0, Calcium Level 8.1L, Magnesium Level 1.9 02/25/21 05:07: Anion Gap 3L, Glomerular Filtration Rate > 60.0, Calcium Level 9.0, Magnesium Level 1.9, Immature Granulocyte % (Auto) , Neutrophils (%) (Auto) , Nucleated Red Blood Cells % (auto) 0.2H, Neutrophils 74H, Band Neutrophils 8, Lymphocytes (Manual) 7L, Monocytes (Manual) 10H, Myelocytes 1H, Polychromasia 1+, A nisocytosis 1+, Platelet Estimate NORMAL, Total Bilirubin 0.7, Aspartate Amino Transf (AST/SGOT) 24, Alanine Aminotransferase (ALT/SGPT) 23, Alkaline Phosphatase 172H, Total Protein 6.4, Albumin 2.0L, Albumin/Globulin Ratio 0.5 02/25/21 08:29: Blood Gas Bicarbonate Standard 28.1H, Arterial Blood pH 7.527H, Arterial Blood Partial Pressure CO2 33.0L, Arterial Blood Partial Pressure O2 62.9L, Arterial Blood Total CO2 27.8, Arterial Blood HCO3 26.8H, Arterial Blood Base Excess 4 .2H, Arterial Blood Oxygen Saturation 92.5L 02/25/21 09:18: OI-Qnz-N-Type Natriuretic Peptide 7292H, Vancomycin Level Trough 15.7 CBC/BMP Laboratory Tests 02/24/21 19:47 02/25/21 05:07 Microbiology Microbiology 02/24/21 Blood Culture - Preliminary, Resulted No growth after 24 hours . All specim... 02/24/21 Gram Stain - Final, Complete 02/24/21 Sputum Culture - Final, Complete 02/20/21 Blood Culture - Final, Complete NO GROWTH AFTER 5 DAYS 02/20/21 Blood Culture - Final, Complete NO GROWTH AFTER 5 DAYS 02/19/21 Urine Culture - Final, Complete Streptococcus Mitis Discharge Medications Scheduled Budesonide/Formoterol (Symbicort 160-4.5 Mcg Inhaler) 6 Gm Hfa.aer.ad, 2 PUFF INH BID, (Reported) Digoxin (Digoxin) 250 Mcg Tablet, 250 MCG PO QHS, (Reported) Gabapentin (Neurontin) 300 Mg Capsule, 300 MG PO QHS, (Reported) Metoprolol Tartrate (Metoprolol Tartrate) 25 Mg Tab, 12.5 MG PO BID, (Reported) Multivitamins (Thera M Plus Tablet) 1 Each Tablet, 1 TAB PO DAILY, (Reported) Omeprazole (Omeprazole) 20 Mg Cap, 20 MG PO BID, (Reported) Rivaroxaban (Xarelto) 20 Mg Tab, 20 MG PO DAILY, (Reported) Salmeterol/Fluticasone (Advair 250-50 Diskus) 1 Each Blst.w.dev, 1 PUFF INH BID, (Reported) Simvastatin (Simvastatin) 20 Mg Tab, 20 MG PO QHS, (Reported) Tamsulosin Hcl (Tamsulosin HCl) 0.4 Mg Capsule, 0.4 MG PO QHS, (Reported) Scheduled PRN Albuterol Sulf (Albuterol Sulfate) 2.5 Mg/3 Ml Vial.neb, 2.5 MG INH QID PRN for SHORTNESS OF BREATH, (Reported) Albuterol Sulfate (Proair Hfa) 108 Mcg/Act Aer, 2 PUFF INH Q4H PRN for SHORTNESS OF BREATH, (Reported) Guaifenesin (Mucinex) 600 Mg Tab.er.12h, 600 MG PO BID PRN for CONGESTION, (Reported) Allergies Coded Allergies: PERFUMES (Unverified Allergy, Unknown, 11/03/16) aspirin (Verified Allergy, Unknown, 05/05/19) Contrast Media (Verified Adverse Reaction, Severe, sharp pain in arms and chest, 02/05/18) KAT BLANC DO Feb 25, 2021 17:16
--- NOTE | 2021-02-25 20:33 | CCN ---
CRITICAL CARE NOTE DATE: 02/25/2021 SUBJECTIVE: The patient was seen and examined this morning during bedside rounds. Overnight the patient required increasing oxygen requirements on his Vapotherm and was on maximal settings this morning at 40 liters per minute and 100% FiO2. He also required additional non-rebreather on top of his Vapotherm, and was maintaining sats only 90-91%. He was also noted to be more tachypneic this morning as well. Repeat imaging was notable as well for worsening extensive interstitial infiltrates almost diffusely in the lung florentino. The patient continues to report shortness of breath and dyspnea. He denied any chest pain this morning. No fevers or chills. He continues to have cough with occasional episodes of hemoptysis which he does not feel has worsened. He states he will cough several times with dark colored sputum and then will have an episode with a small amount of dark red or sometimes brighter red blood clots within it. He denies noticing any worsening lower extremity edema. He did receive Lasix for diuresis yesterday and he did have good urine output. He did have some episodes of lower back pain yesterday afternoon and was given a small bolus of normal saline. OBJECTIVE: PHYSICAL EXAMINATION: VITAL SIGNS: This morning during rounds T-max was 99.8, pulse was 104, respirations 38, blood pressure 98/54, 02 sat 90% on 100% FiO2 on Vapotherm. INTAKE AND OUTPUT: In's 2.6 liters, out 2.1 liters, negative positive 500 mL. GENERAL APPEARANCE: The patient is a frail, chronically ill appearing elderly male who is sitting in bed with some respiratory distress. The patient is tachypneic and is using accessory muscles with respiration. He is unable to speak in complete sentences, only very short phrases. HEENT: Normocephalic and atraumatic. Moist mucous membranes noted. There is white plaque on the patient's tongue. Mallampati is 3. NECK: Supple. Trachea is midline. No palpable cervical adenopathy. There is a right chemo port palpated. CARDIAC: Tachycardic, irregularly irregular, normal S1, S2 with loud closure sounds. PULMONARY: Increased crackles noted bilaterally as well as occasional rhonchorous breath sounds. There is no wheezing noted. ABDOMEN: Soft, nondistended and nontender to palpation. EXTREMITIES: No significant lower extremity edema noted bilaterally. There is mild clubbing. LABORATORY STUDIES: WBC 17.7, hemoglobin 10.8, platelet count 183. Chemistries - sodium was 137, potassium was 3.8, chloride was 102, bicarbonate 32, BUN 7, creatinine 0.71, glucose is 121, calcium is 9.0, magnesium is 1.9, AST 24, ALT is 23, alkaline phosphatase is 172, albumin is 2.0. Sputum culture gram stain was positive for yeast-like organisms but the culture was not run as it was contaminated by oropharyngeal contents. IMAGING: A chest x-ray this morning shows diffuse interstitial infiltrates with some worsening disease noted, particularly in the right mid lung florentino and in the right upper lobe with continued infiltrate noted in the left lower and mid lung florentino with some sparing in the left upper lobe. Post intubation chest x-ray showed ET tube initially 2 cm above the rhoda, which was adjusted and pulled back one cm. the OG tube initially was also right at the diaphragm which was also adjusted and pushed in further. There is worsening dense multifocal opacities noted bilaterally diffusely throughout the lung florentino, now significantly worse compared to a.m. chest x-ray. ASSESSMENT AND PLAN: Mr. Alejandra is a 75-year-old male a past medical history of chronic obstructive pulmonary disease, pulmonary fibrosis, chronic hypoxia, respiratory failure, with a history of ongoing nicotine dependence and a history of lung cancer, status post left upper lobectomy with recurrent disease, now on the right, on chemotherapy, history of atrial fibrillation, status post pacemaker, on anticoagulation, and a history of pulmonary hypertension, who presented initially with pancytopenia, particularly thrombocytopenia and neutropenia secondary to chemotherapy. The patient was also found to have neutropenic fever with concern for pneumonia given worsening findings on imaging. The patient was also noted to have worsening hypoxemic respiratory failure and was placed on Vapotherm yesterday. The patient was also felt to be febrile with the worsening disease secondary to his pneumonia with a possible component of pulmonary edema contributing. He was given diuretics, however given his borderline blood pressures, he did receive additional IV fluids and so is net positive today still. The patient had worsening hypoxemic respiratory failure noted overnight with increasing findings on chest x-ray, concerning for ARDS. 1. [id number] hypoxemic respiratory failure, likely secondary now to ARDS from pneumonia related to his neutropenia. - Given the patient's hypoxia and on maximal setting on Vapotherm and with a non-rebreather as well as his increasing respiratory distress and tachypnea, the decision was made for intubation this morning. The patient was transferred to the ICU for intubation. He was pre-oxygenated and was also started on Levophed given his borderline blood pressures. He was intubated with the first pass attempt with rapid sequence intubation. He did not have any hypotension noted post intubation and no hypoxia. He was therefore started on Propofol as well as Versed. The patient's post intubation chest x-ray showed significant worsening air space disease. Suspect worsening ARDS as well as component perhaps of flash pulmonary edema. The patient was noted to have difficulty on the ventilator with severe vent dyssynchrony on volume control ventilation. He also had significantly elevated peak and plateau pressures given his ARDS. The patient was increased on sedation as well as started on paralytics for his vent dyssynchrony. He was given a dose of Vecuronium. The patient was noted to require increasing amounts of Levophed for hypotension. He then went into episode of atrial fibrillation with rapid ventricular response and suspect which his underlying pulmonary hypertension, the tachycardia as well as the acute worsening findings on chest x-ray of ARDS, contributed to increasing RV systolic pressure and acute rapid decompensation of his right ventricle. The patient was therefore requiring maximal doses of Levophed as well as a push dose of Epinephrine 10 mcg per mL, around 3 mL total. He was also started on Vasopressin and given a one liter normal saline bolus. The patient has continued stress, likely secondary to his acute decompensated right ventricular failure. He continued to have episodes of atrial fibrillation with rapid ventricular response. The patient was then noted to go into PEA arrest and CPR was started. The patient received Epinephrine and bicarbonate and he did have return of spontaneous circulation after 2 minutes of CPR. Post arrest he cont on maximal doses of Levophed and Vasopressin and was noted to continue to have hypotension. The patient's daughter was notified of his initial cardiac arrest. The patient was then found again to have worsening hypotension and had lost pulse again and CPR was initiated again. He received additional doses of Epinephrine as well as sodium bicarbonate. After his daughter was notified of his second cardiac arrest, given his underlying poor prognosis with his malignancy and chronic lung disease, and now with suspected ARDS and acute decompensated right heart failure and shock, the patient's daughter decided to make the patient DNR and to stop any further resuscitation. The patient's daughter was then brought to the bedside, where he was made comfort measures only and palliatively extubated. Total critical care time spent not including any procedures approx 2 hrs and 20 mins MTDD
--- NOTE | 2021-02-26 07:53 | RO ---
OPERATIVE NOTE DATE OF OPERATION: 02/25/2021 PREPROCEDURE DIAGNOSIS: Hypoxemic respiratory failure, ARDS. POSTPROCEDURE DIAGNOSIS: Hypoxemic respiratory failure, ARDS. PROCEDURE: Endotracheal intubation. ATTENDING PHYSICIAN: Ronit Carrillo MD INDICATION: Hypoxemic respiratory failure and respiratory distress. CONSENT: Verbal consent was obtained from the patient prior to the procedure. The patient's family was also notified about endotracheal intubation and were in agreement. PROCEDURE SUMMARY: The patient was noted this morning to have worsening respiratory distress and tachypnea as well as worsening hypoxemic respiratory failure. He was on maximal settings on Vapotherm at 100% FiO2 with the addition of a nonrebreather with sats only of 90-91%. The patient's imaging had shown worsening air space disease with concern for development of ARDS. He was therefore transferred to the ICU for endotracheal intubation and placement of mechanical ventilation. The patient was placed on residential monitor including continuous pulse oximetry. He was started on Levophed prior to intubation for blood pressure support. He was preoxygenated with bag mask valve ventilation and Vapotherm which was continued for apneic oxygenation. His O2 sat was 95% prior to intubation attempt. He was given medications for rapid sequence intubation with 20 mg of Etomidate for induction and 100 mg of succinylcholine for adequate paralysis. Using a size 3 GlideScope with a size 8.5 endotracheal tube with stylet, the patient was intubated on the first pass attempt. During intubation, the patient's O2 sat remained above 88%. The stylet was removed and the cuff balloon was inflated. Appropriate endotracheal tube position was confirmed by direct visualization of vocal cord passage, following of the tube, CO2 colorimetric indicator and symmetric breath sounds. The tube was secured at 24 cm at the lips. Post-intubation chest x-ray showed the ET tube was only approximately 2 cm above the rhoda and so it was pulled back to 23 cm at the lip. His OG tube on the post-intubation chest x-ray was also noted just above the diaphragm and so was readjusted and pushed in further. Post-intubation, the patient's blood pressure MAPs were in the 90s. He was started on Propofol for sedation as well as given Versed 2 mg IV push for sedation. Levophed was continued but was being titrated down. MTDD
--- NOTE | 2021-02-26 08:43 | ECGEPIP ---
[facility] Test Date: 2021-02-25 Pat Name: LEO COOK Department: Room: [place] [address] Gender: Male Data Entry Operator: YNES : 1945 Requested By: COOKIE STOCKTON Order Number: [id number] Reading MD: Taye Najera Measurements Intervals [place] Rate: 80 P: [place]: QRS: -83 QRSD: 128 T: 96 QT: 352 QTc: 405 Interpretive Statements Ventricular-paced rhythm with occasional supraventricular complexes previous tracing from 02-16-21 showed underlying atrial flutter Electronically Signed on 02-26-2021 8:43:10 EDT by Taye Najera
[2021-03-01 15:11] LABS: ASPERGILLUS GALACTOMANNAN AG 0.03 Index (0.00-0.49); FUNGITELL, SERUM <31 pg/mL (<80)
== END 2021-02-25 12:00 | disposition expired | DRG 808 ==
LOC: M ED 18:30 → M ED INP 22:17 → ENRESERV 02-17 07:58 → M PCU 02-17 10:03 → M ICU 02-25 09:29
PROVIDERS: ADMIT Internal Medicine; ATTEND Internal Medicine
PROC: 5A1935Z Respiratory Ventilation, Less than 24 Consecutive Hours (ICD-10-PCS; principal; 2021-02-25)
DX: D61.810 Antineoplastic chemotherapy induced pancytopenia (principal); J18.9 Pneumonia, unspecified organism; A41.9 Sepsis, unspecified organism; J96.01 Acute respiratory failure with hypoxia; I50.31 Acute diastolic (congestive) heart failure; C34.90 Malignant neoplasm of unspecified part of unspecified bronchus or lung; N39.0 Urinary tract infection, site not specified; D68.32 Hemorrhagic disorder due to extrinsic circulating anticoagulants; R04.2 Hemoptysis; M62.81 Muscle weakness (generalized); R29.6 Repeated falls; G62.0 Drug-induced polyneuropathy; J44.9 Chronic obstructive pulmonary disease, unspecified; I48.91 Unspecified atrial fibrillation; R04.0 Epistaxis; D70.9 Neutropenia, unspecified; K21.9 Gastro-esophageal reflux disease without esophagitis; N40.0 Benign prostatic hyperplasia without lower urinary tract symptoms; Z92.21 Personal history of antineoplastic chemotherapy; Z88.6 Allergy status to analgesic agent; Z91.041 Radiographic dye allergy status; Z79.899 Other long term (current) drug therapy; Z95.0 Presence of cardiac pacemaker; Z79.01 Long term (current) use of anticoagulants; J84.10 Pulmonary fibrosis, unspecified; F17.210 Nicotine dependence, cigarettes, uncomplicated